=== PATIENT | female | born 1965 | race Caucasian/White ===

== ENCOUNTER → 2017-06-19 11:57 | Outpatient (CLI) | payer MEDICARE, SELFPAY ==
[2017-06-19 12:52] LABS: AST(SGOT) 28 U/L (15-37); Alanine Aminotransfer ALT/SGPT 44 U/L (13-56); Albumin, Serum 3.6 g/dL (3.2-5.0); Alkaline Phosphatase 136 U/L (45-117); Anion Gap 5 (5-15); BUN 14 mg/dL (7-18); BUN/Creat Ratio 12.5 RATIO (10-20); Calcium,Total 9.7 mg/dL (8.5-10.1); Chloride 107 mmol/L (98-107); Creatinine, Serum 1.12 mg/dL (0.55-1.02); EST Glomerular Filtration Rate 54 mL/min (>60); Est Glom Filt Rate - Afr Amer 65 mL/min (>60); Globulin 3.5 g/dL (2.2-4.2); Glucose 143 mg/dL (74-106); Potassium 3.4 mmol/L (3.5-5.1); Protein, Total 7.1 g/dL (6.4-8.2); Sodium Level 140 mmol/L (136-145); Thyroid Stim Hormone (TSH) 1.28 uIU/mL (0.358-3.74)
[2017-06-20 10:37] LABS: Vitamin D,25 Hydroxy 43.5 ng/mL (19.95-100.01)
== END ==
PROVIDERS: Family Provider Family Medicine; PCP Family Medicine; Visit Provider Family Medicine
DX: E03.9 Hypothyroidism, unspecified (principal); E55.9 Vitamin D deficiency, unspecified; F31.62 Bipolar disorder, current episode mixed, moderate
CPT/HCPCS: 80053; 82306; 84443

== ENCOUNTER 2017-07-09 09:00 | Outpatient (RCR) | payer MEDICARE, SELFPAY ==
--- NOTE | 2017-07-09 12:06 | BH.COMM ---
Communication Note - Communication with Client Communication Note: Therapist followed up with client on her first day and to let client know this therapist will be client's individual counselor. Therapist also provided client with CBT thought logs and scheduled an individual session for this week.
--- NOTE | 2017-07-09 12:08 | BH.SGPN ---
Service Group Progress Note - Session Psychotherapy Session #1 Date Open:: 07/09/17 Time Started:: 09:04 Time Stopped:: 10:20 Targeted Problem #:: 1 Type of Group:: Process - 8 participants Goal of Group:: The goal of today's group was to check-in with client's mood, stressors, and positives, review homework and introduce topic for the day. Eye Contact:: Good Motor Activity:: Appropriate Appearance:: Neat, Casual Speech:: Appropriate Mood:: Anxious, Depressed Affect:: Congruent Thoughts:: Linear, Logical, No evidence of hallucinations/delusions noted Staff Interventions:: Therapist used open-ended questions to elicit information about client's current stressors and mood state. Therapist was supportive by using active listening and reflection.
--- NOTE | 2017-07-09 14:04 | BH.SGPN ---
Service Group Progress Note - Session Psychotherapy Session #2 Date Open:: 07/09/17 Time Started:: 10:30 Time Stopped:: 11:20 Targeted Problem #:: 1 Type of Group:: Illness Management Goal of Group:: To increase understanding how positive and negative forces in life can impact balance in life. Eye Contact:: Good Motor Activity:: Appropriate Appearance:: Casual Speech:: Appropriate Mood:: Anxious, Depressed Affect:: Congruent Thoughts:: Linear, Logical, No evidence of hallucinations/delusions noted Staff Interventions:: Therapist facilitated group discussion about the various forces of life and helped clients connect the impact they have on balance in life. Therapist led group in an experiential activity in which group members had to work together to balance an object and move it to a designated location. Therapist utilized the activity as a tool to process the challenges connected with balancing various forces. Psychotherapy Session #3 Date Open:: 07/09/17 Time Started:: 11:30 Time Stopped:: 12:20 Targeted Problem #:: 1 Type of Group:: Functional Skills Development Goal of Group:: To identify positive and negative forces in life and identify which forces are helping stability and which forces are contributing to instability. Eye Contact:: Good Motor Activity:: Appropriate Appearance:: Casual Speech:: Appropriate Mood:: Anxious, Depressed Affect:: Congruent Thoughts:: Linear, Logical, No evidence of hallucinations/delusions noted Staff Interventions:: Therapist provided group with an example of a scenario of a person and the individual???s positive and negative forces. Therapist provided each group member with a worksheet in which they were to identify five positive and five negative forces in their life. Therapist processed the activity with the group, helping others connect the impact certain forces have on their life balance.
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
--- NOTE | 2017-07-10 14:39 | BH.DR.ITP ---
Initial Treatment Plan - Patient Information Visit Information: ADMISSION DATE: EXPECTED LOS: 4-6 weeks Diagnoses:: Bipolar disorder F 31.81 - Problems/Symptoms Problem #1:: Depression Symptom:: Sad mood, anhedonia, decreased energy, difficulty concentrating, suicidal ideation, biologic disruption of sleep and appetite Problem #2:: anxiety Symptom:: rumination, intrusive traumatic memories
--- NOTE | 2017-07-10 16:09 | BH.SGPN ---
Service Group Progress Note - Session Psychotherapy Session #2 Date Open:: 07/10/17 - participants Time Started:: 10:21 Time Stopped:: 11:12 Targeted Problem #:: 1 Type of Group:: Illness Management Goal of Group:: To increase understanding of what strengths are and identify individual strengths. Client Response/Progress/Benefit:: Client responded well to session, quiet, but participating when promoted. Client connected to the quote stating, you don't get better in a day, it takes time. Client reported strengths are good things about ourselves and they are important for self-esteem and overcoming hardships. Client identified her personal strengths as being courageous, good sense of humor, educated, motivated, and having good self-awareness. Client appeared to benefit from recognizing her personal strengths and how they impact her mental health. Limited progress due to client's recent admission. To continue IOP to promote mood stability and prevent decompensation. Eye Contact:: Good Motor Activity:: Appropriate Appearance:: Neat Speech:: Appropriate Mood:: Dysthymic Affect:: Constricted Thoughts:: Linear, No evidence of hallucinations/delusions noted Staff Interventions:: Therapist facilitated discussion about what are strengths and assisted group members in identifying examples of strengths. Therapist led an activity in which group members were given the opportunity to identify five personal strengths. Therapist assisted clients in connecting the importance of recognizing personal strengths.
--- NOTE | 2017-07-10 21:52 | BH.SGPN_ITS ---
Service Group Progress Note - Session Psychotherapy Session #1 Date Open:: 07/10/17 Time Started:: 09:06 Time Stopped:: 10:15 Targeted Problem #:: 1 Type of Group:: Process - 9 participants Goal of Group:: The goal of today's group was to check-in with client's mood, stressors, and positives, review homework. Client Response/Progress/Benefit:: Client responded well to session and did well to openly discuss thoughts, feelings, and opinions with the group. She discussed ongoing frustrations with her inability to sleep and explained feeling unable to fully function as a result. She went on to discuss feeling as though none of her providers truly understand the extent of her problem and don' t seem to know what to to. Client indicated I've tried everything, but nothing seems to help. She was receptive of fellow client suggestions and indicated that maybe altering her bedtime routine would be benefical. Client benefited from the structured and supportive group environment as well as having a safe setting to vent frustrations. Recommended continued IOP to further enhance internal coping skill repertoire as well as to prevent decompensation. Eye Contact:: Fair Motor Activity:: Restless Appearance:: Casual Speech:: Appropriate Mood:: Depressed Affect:: Full, Congruent Thoughts:: Linear, Logical, No evidence of hallucinations/delusions noted Staff Interventions:: Therapist used open-ended questions to elicit information about client's current stressors and mood state. Therapist reviewed homework assigned from previous groups. Therapist was supportive by using active listening and reflection.
--- NOTE | 2017-07-12 13:18 | BH.SGPN_ITS ---
Service Group Progress Note - Session Psychotherapy Session #2 Date Open:: 07/12/17 - 10 group members Time Started:: 10:25 Time Stopped:: 11:15 Targeted Problem #:: 1 Type of Group:: Illness Management Goal of Group:: To increase understanding of importance of boundaries and the different ways of setting boundaries (permeable, rigid, and flexible). Client Response/Progress/Benefit:: Client responded well to session, engaging in discussion. Client appeared to connect with quote sharing, ?boundaries are important, but I don?t set them.? Client shared she often avoids setting boundaries because she does not want to disappoint people. Client identified her boundary type as porous stating, ?I let a lot in.? Client shared being porous increases anxiety as client has a hard time saying no, then takes on too many tasks at once. Client appeared to benefit from increasing awareness of the different boundary types and they impact mental health. Eye Contact:: Fair Motor Activity:: Appropriate Appearance:: Casual Speech:: Appropriate Mood:: Dysthymic Affect:: Flat Thoughts:: Linear, No evidence of hallucinations/delusions noted Staff Interventions:: Therapist facilitated group discussion about defining boundaries. Therapist led discussion about importance of boundaries, assisting group members with identifying the impact of healthy and unhealthy boundaries. Therapist educated the group about the three different ways of setting boundaries and led discussion about each one. Therapist assisted clients with identifying the costs and benefits to the three different styles of boundary setting and how each style can impact mental health as well as relationships. Psychotherapy Session #3 Date Open:: 07/12/17 - 9 group members Time Started:: 11:25 Time Stopped:: 12:20 Targeted Problem #:: 1 Type of Group:: Functional Skills Development Goal of Group:: Increase awareness of current boundary style, identifying impact current way of setting boundaries has on mental health as well as relationships. Client Response/Progress/Benefit:: Client responded well to session, active participant. Client created a visual representation of her boundaries, sharing ? I put up this front like I will say no and keep people out, but it?s not true.? Client reported being porous leads to rumination and dwelling. Client shared she does set boundaries with ?rigid people? people who do not share the same beliefs as client. Client stated she can improve her boundaries by focusing more on her mental health needs. Client to continue IOP to prevent decompensation. Eye Contact:: Fair Motor Activity:: Appropriate Appearance:: Casual Speech:: Appropriate Mood:: Dysthymic Affect:: Flat Thoughts:: Linear, No evidence of hallucinations/delusions noted Staff Interventions:: Therapist provided the group member with a wide array of supplies, asking each group member to create a castle that would represent the boundaries they currently have in place. The expressive activity was used as a tool to help increase client?s self-awareness of their boundaries. Therapist processed each group member?s castle, inquiring what style the group member currently uses most frequently and how current boundary style impacts his/her mental health and relationships. Therapist provided support by using reflective listening and giving feedback.
--- NOTE | 2017-07-12 13:18 | BH.MDN ---
Multi-Disciplinary Note - Note 30-min Individual Time Started:: 09:21 Date: 07/12/17 Purpose of session/treatment goals addressed:: The purpose of this session was to explore client's current stressors, symptoms, and overall functioning. Another goal was to build rapport and establish treatment goals. Eye Contact:: Good Motor Activity:: Appropriate Appearance:: Neat Speech:: Appropriate, Other - monotone Mood:: Dysthymic Affect:: Flat - became tearful at times Thoughts:: Linear, No evidence of hallucinations/delusions noted Staff Interventions:: Therapist used active listening and open-ended questions to explore client's current stressors, symptoms, and warning signs. Therapist helped client identify individualized treatment goals and provided emotional support. Therapist assisted client in processing emotions and used strengths perspective to empower client. Therapist and client explored coping skills that have worked in the past and developed homework for client. Client Response:: Client responded well to session, open to meeting with therapist. Client reported I knew I needed help because I was having suicidal thoughts again. Client shared other warning signs she recognized were smoking, poor concentration, and I get depressed every winter. Client reported her daughter recently got in a car accident which triggered client as well it was the straw that broke the camel's back. Client shared she would like to work on learning to cope with her daughters leaving home and learning to make a life for myself. Client stated she also wants to get back into challenging negative thoughts as it was helpful in the past. Client expressed she knows what is helpful, but her depressive symptoms are impacting client's implementation of healthy skills. Client reflected when she gets depressed I don't give myself any credit and client often uses negative self-talk. Client agreed to start writing in a positivity journal every day so client can track the things she deserves credit for and promote positive self-talk. Risks/Concerns:: Client reports passive thoughts of such as it would be better if I wasn't here. Client denies suicidal ideation, plan, and intent of as 07/12/17. Client identifies her daughters as a reason to live. Progress Toward Goals/Plan:: Client progress limited as it is her first week in the program. Client has been in IOP before and shared I've always made progress here which gives client hope. Client appears to have high insight to triggers, warning signs, and healthy versus unhealthy coping skills. Client to continue IOP to prevent decompensation and promote mood stability. Client to work on her credit journal and thought challenge for homework. Time Stopped:: 09:55
--- NOTE | 2017-07-12 16:19 | BH.MTP ---
Master Treatment Plan - Patient Information Program Physician:: Tati Priest Primary Therapist:: Any Damico - Psychiatric Diagnoses Psychiatric Diagnoses:: Bipolar disorder ; PTSD; Generalized anxiety disorder; Nicotine use disorder. Diagnosis Code(s):: F 31.81 - Estimated LOS Estimated LOS (in weeks):: 6 Problem/Goal #1 - Problem/Goal #1 Stated Goal:: Client will increase mood stability, decrease depressive symptoms, and suicidal ideation due to Bipolar Disorder through Intensive Outpatient Program. Description of Barriers: Client has insight to healthy coping skills that have managed her depression in the past, but due to hopelessness and negative thinking client has not been utilizing those skills. Client shared she experiences depression every winter which results in negative thinking, isolation, and rumination. Client reports having a hard time accepting her living situation which exacerbates depressive symptoms and could be a barrier to treatment. Additionally, client shared she is struggling with finding her purpose as her daughters will both soon be gone from home. Functional Impact: Client identifies a pattern of seasonal depression and mixed mood symptoms associated with winter weather and usually worse in June. Client reported Im tired of always feeling this way every year. Client reported belief her symptoms were further exacerbated this year as 2 weeks ago when her daughter was in an MVA. Client endorses a depressed mood with isolative behavior decreased energy, rumination, anhedonia, and difficulty concentrating. Client reported having suicidal thoughts two weeks ago which was when I knew it was getting bad. Client shared her symptoms are interfering with her ability to function at her baseline and enjoy daily life. Goal Relevant Strengths/Supports: Client is intelligent, resilient, and reports willingness to engage in treatment. 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 Client reports having good rapport with her outpatient therapist and identifies numerous friends who provide social support as well. Client identifies returning to [facility] as a strength as client was aware of warning signs for depression and was willing to ask for help. Client has successfully managed her depressive symptoms in the past and reports hope she can do it again. - Objectives Objective #1 Stated Objective: Client will identify and replace 2-3 negative thinking patterns that mediate feelings of hopelessness and helplessness. Interventions: Through groups and individual therapy, client will be provided with education on cognitive distortions, negative maintenance cycles, core beliefs, and identifying and combating negative self-talk. Therapist will help client explore connection between thoughts, feelings, and actions through use of CBT and DBT strategies. Discharge Criteria: Client will be able to identify 2-3 negative thinking patterns and be able to effectively challenge, reframe, and cope with those negative thoughts. Target Date: 08/20/17 Review Date: 08/08/17 Status: open Objective #2 Stated Objective: Client will increase self-confidence and improve self-worth by journaling 3-5 positives a day and identifying at least 2 activities or support to improve mood. Interventions: Therapist will help client identify personal strengths, interests, and explore ways to improve her self-worth. Therapist will provide psychoeducation to help client learn more about depression, bipolar, and help client externalize her symptoms. Therapist will help client discover meaningful activities and connect with positive supports to improve mood. Discharge Criteria: Client will have accomplished this treatment goal when can report increased self-confidence through journaling at least 3 positives a day and identifying at least 2 new positive activities or supports. Target Date: 08/20/17 Review Date: 08/08/17 Status: open Problem/Goal #2 - Problem/Goal #2 Stated Goal:: Client will stabilize anxiety level while increasing ability to function and decreasing ruminative thoughts on a daily basis through Intensive Outpatient Program. Description of Barriers: Client has insight to healthy coping skills that have managed her depression in the past, but due to hopelessness and negative thinking client has not been utilizing those skills. Client shared she experiences depression every winter which results in negative thinking, isolation, and rumination. Client reports having a hard time accepting her living situation which exacerbates depressive symptoms and could be a barrier to treatment. Additionally, client shared she is struggling with finding her purpose as her daughters will both soon be gone from home. Functional Impact: Client identifies a pattern of seasonal depression and mixed mood symptoms associated with winter weather and usually worse in June. Client reported Im tired of always feeling this way every year. Client reported belief her symptoms were further exacerbated this year as 2 weeks ago when her daughter was in an MVA. Client endorses a depressed mood with isolative behavior decreased energy, rumination, anhedonia, and difficulty concentrating. Client reported having suicidal thoughts two weeks ago which was when I knew it was getting bad. Client shared her symptoms are interfering with her ability to function at her baseline and enjoy daily life. Goal Relevant Strengths/Supports: Client is intelligent, resilient, and reports willingness to engage in treatment. 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 Client reports having good rapport with her outpatient therapist and identifies numerous friends who provide social support as well. Client identifies returning to [facility] as a strength as client was aware of warning signs for depression and was willing to ask for help. Client has successfully managed her depressive symptoms in the past and reports hope she can do it again. - Objectives Objective #1 Stated Objective: Client will identify 2-3 anxiety triggers and distortions and 2 coping skills to use when feeling anxious. Interventions: Therapist will assist client in exploring what triggers anxiety and teach client coping strategies to effectively manage anxiety symptoms. Therapist will educate client on the different types of cognitive distortions and how they impact rumination. Discharge Criteria: Client will have met this goal when can identify at least 2 triggers to anxiety and verbalize two healthy ways to cope with feelings of anxiety. Target Date: 08/20/17 Review Date: 08/08/17 Status: open
--- NOTE | 2017-07-13 11:23 | BH.NA_ITS ---
Physical Data - Vital Signs Pulse Rate: 86 Respiratory Rate: 14 Blood Pressure: 135/90 - Height/Weight Height: 1.65 m Weight:: 78.018 kg Weight in Pounds: 172.0 lbs Current Medication Compliance - Medication Compliance Do you take your medication as prescribed?: Yes Do you need assistance with taking medication?: No Have you had side effects from medication?: Yes Nutritional History - Appetite Nutritional Instructions:: If client shows signs of a swallowing problem, weight change of 10 pounds or more in the last month, or is on a diabetic diet, the physician will review and request a dietitian consult, as appropriate. All unintentional weight loss will be referred to the physician for decision on need for dietitian consult. Describe your appetite:: Good Have you noticed a change in your eating habits lately?: No Additional nutritional information:: 10# wt loss. 3-4 caffienated beverages daily. Functional Assessment - Sleep Pattern Describe any problems with sleeping: Difficulty staying asleep - Activities Motor Activity:: Functional Sensory/Communication Assess - Vision Problems Do you have any vision problems?: None - Hearing Problems Do you have any hearing problems?: Adequate - Communication Problems Do you have difficulty understanding what people are saying?: No Do you have trouble putting your thoughts into words or expressing what you want to say?: No Do people ever have trouble understanding what you say?: No What is your primary language?: Italian Learning Assessment - Learning Barriers Learning Barriers:: Ready to learn Medical Problems/History - Cardiac Conditions Cardiovascular: Hypertension - Metabolic Conditions Metabolic: Hypothyroidism - Pain Assessment Do you have acute or chronic pain?: No - Female Reproductive Do you think you may be ?: No Number of pregnancies:: 2 Number of children:: 2 Substance Abuse - Substance Abuse Please describe substance abuse in the last 30 days:: Client notes that she has been smoking cigarettes intermittent and has been using nicotine gum to aide with cessation. Denies ETOH and illicit substance use. Mental Status Summary - Mental Status Significant Findings/Observations on Appearance and Mood:: Client is A&Ox4, cooperative with interview, and makes good eye contact. Speech is clear and of regular rate and volume. Moderate depression and anhedonia. Mood congruent affect. Logical associations and normal process. Average knowledge. Impair judgement. No symptoms of delusions. Denies hallucinations or HI. Intermittent SI. Suicide Assessment - Suicidal Ideation Suicidal Intentional Rating Scale (SIRS): Current suicidal thoughts/No plan/ Contracts for safety Physician Notification: If Active suicidal thoughts/Will not contract for safety is checked, contact physician and document in the Physician Notification section below. Assault History/Potential - History of Assault Do you have a history of assaulting someone?: No Physician Notification: If yes, notify physician and document notification date and time below. Past Psychiatric History - MH Treatment Hx Past Psychiatric Medications:: Tegretol, Depakote Describe (age, circumstance, etc) any past hospitalizations: 6 times Fall Risk Assessment - Age Age: Less than 60 - Mental Status Mental Status: Willing & able to ask for assistance when needed - Physical Status Physical Status: No problems - Impairments Impairments: None - Elimination Elimination: Continent AND independent - Gait or Balance Gait or Balance: Walks independently - Hx of Falls History of falls in the past 6 months: No known history - Medications/Substances Psychotropics:: Antidepressants, Mood stabilizers Medications/substances used within the past 24 hours or ordered to administer: 1 -2 of the medications/substances listed above - Total Score Total Points:: 1 RN Summary of Impressions - Impressions Recommendations: Include psychiatric and medical issues, treatment planning recommendations, and discharge planning needs. Impressions: Psychiatric Issues: PTSD, bipolar 2, anxiety Impression: General Medical Conditions: HTN, hypothyroidism - Level of Care How do the client's current symptoms and functional deficits support need for this level of care?: Client notes a deterioration of her condition for the past few months. She notes that her daughter was in an MVA 2 weeks to presenting, and that has caused her to have more severe anxiety. The client notes difficulty falling asleep at night associated with rumination, increased SI, and isolative behaviors. IOP will promote gains and prevent further decompensation of mental health.
--- NOTE | 2017-07-13 14:06 | BH.SGPN ---
Service Group Progress Note - Session Psychotherapy Session #2 Date Open:: 07/13/17 Time Started:: 10:15 Time Stopped:: 11:10 Targeted Problem #:: 1 Type of Group:: Illness Management Goal of Group:: The goal of group was to increase understanding of goals and goal setting and practice a method of goal setting. Eye Contact:: Good Motor Activity:: Appropriate Appearance:: Casual Speech:: Appropriate Mood:: Depressed Affect:: Congruent Thoughts:: Linear, Logical, No evidence of hallucinations/delusions noted Staff Interventions:: Therapist facilitated group discussion about goals and goal setting. Therapist taught group the acronym SMART (Specific, Measurable, Achievable, Realistic, Timely) as a tool to help with goal setting. Therapist led the group in an activity to be used as a method of practicing goal setting. Therapist guided the group through the SMART acronym as group was participating in activity. Therapist assisted group members with connecting the importance of making small, realistic goals. Psychotherapy Session #3 Date Open:: 07/13/17 Time Started:: 11:16 Time Stopped:: 12:06 Targeted Problem #:: 1 Type of Group:: Functional Skills Development Goal of Group:: The goal of group was to identify a goal for the weekend, explore the potential barriers to achieving that set goal, and identify strategies to overcome barriers. Eye Contact:: Good Motor Activity:: Appropriate Appearance:: Casual Speech:: Appropriate Mood:: Depressed Affect:: Congruent Thoughts:: Linear, Logical, No evidence of hallucinations/delusions noted Staff Interventions:: Therapist facilitated group activity in which group members identified a goal to work on over the next week. Therapist asked group members to identify barriers to achieving identified goal and strategies to help them achieve their goal. Therapist led group in processing their goal maps, assisting clients with establishing SMART goals. Therapist provided support by using reflective listening.
--- NOTE | 2017-07-16 17:25 | BH.SGPN_ITS ---
Service Group Progress Note - Session Psychotherapy Session #1 Date Open:: 07/16/17 Time Started:: 09:05 Time Stopped:: 10:20 Targeted Problem #:: 1 Type of Group:: Process Goal of Group:: The goal of today's group was to check-in with client's mood, stressors, and positives, review homework and introduce topic for the day. Client Response/Progress/Benefit:: Client reported her weekend was a mix of good and bad. 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 Another positive when she went for a walk yesterday and really enjoys being outside getting fresh air and sun. Client reported the really bad situation was on [place] Day she went out with some friends to a bar and ended up drinking alcohol in excess which led to her later in the night smoking marijuana. Client shared she is feeling really disappointed in herself because she tends to not drink alcohol or do drugs because she knows it can have better interaction with medications as well as could impact her mental health. Through discussion client was able to recognize that she is beating herself up over having made a mistake which is only making her more depressed. Client able to recognize that it is important to learn from the situation so she does not put herself in something like that again but it is not helpful to continue to ruminate over her choice that she cannot take back. Client seemed to benefit from sharing her thoughts and feelings about the weekend as well as receiving support and having her thought processes being challenged. Eye Contact:: Fair Motor Activity:: Restless Appearance:: Neat Speech:: Appropriate Mood:: Depressed Affect:: Flat Thoughts:: Linear, Logical, No evidence of hallucinations/delusions noted Staff Interventions:: Therapist used open-ended questions to elicit information about client's current stressors and mood state. Therapist was supportive by using active listening and reflection.
--- NOTE | 2017-07-17 14:45 | BH.MDN ---
Multi-Disciplinary Note - Note 45-min Individual Time Started:: 12:40 Date: 07/17/17 Purpose of session/treatment goals addressed:: The purpose of this session was to address client's current stressors, symptoms, and use of coping skills. Another goal was to identify cognitive distortions, mistaken beliefs, and discuss identity. Eye Contact:: Avoidant Motor Activity:: Appropriate Appearance:: Neat Speech:: Appropriate Mood:: Dysthymic Affect:: Flat - tearful throughout Thoughts:: Racing, No evidence of hallucinations/delusions noted Staff Interventions:: Therapist used active listening and open-ended questions to explore client's current stressors, symptoms, and use of coping skills. Therapist used CBT to inform client on negative maintenance cycles, the depressive triad, and how thoughts, feelings, and behaviors are all connected. Therapist gently challenged client on not implementing thought challenging techniques and helped client identify barriers. Therapist normalized and externalized depression to help client reframe her identity and focus on strengths. Therapist gave client a three-day thought challenging goal to promote use of a skill that has helped client in the past. Client Response:: Client responded well to session, open to meeting with therapist. Client shared her successes and challenges from over the weekend and reported she has been keeping up with her self-confidence journal. Client shared her current outlook has been negative and she has been experiencing a lot of black and white thinking. Client stated, I just feel like it's never going to get better and I'm doing everything I can. 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 However, with therapist elicitation, client reported she has not been challenging cognitive distortions which may be hindering the effectiveness of client's other coping skills. Client was receptive to externalizing depression and exploring how she is more than depression. Client listed positive characteristics that form her identity and listed mistaken beliefs, negative thoughts, and barriers that make come with depression. Client stated this helped client understand she is more than depression even though she may not currently feel that way. Client and therapist discussed the depression triad and how negative self-talk impacts core beliefs, emotions, and one's outlook. Client reported willingness to try the three-day thought challenging activity as reframing cognitive distortions helped client in the past. Risks/Concerns:: Client denies suicidal ideation, plan, and intent as of 07/17/17. Client reports knowing group has helped her before gives her hope. Progress Toward Goals/Plan:: Client's progress is variable as it is only her second week in the program. However, client is showing progress with utilizing opposite action strategies to reduce isolation, but reports struggling with challenging distorted thoughts that exacerbate depressive symptoms. Client to continue IOP to promote mood stability and increase coping skill consistency. Time Stopped:: 13:25
--- NOTE | 2017-07-17 14:54 | BH.SGPN ---
Service Group Progress Note - Session Psychotherapy Session #1 Date Open:: 07/17/17 Time Started:: 09:05 Time Stopped:: 10:00 Type of Group:: Process - 8 group members Goal of Group:: The goal of today's group was to check-in with client's mood, stressors, and positives, review homework and introduce topic for the day. Client Response/Progress/Benefit:: Client was an active participant in group discussion. Emotion for today is concerned. Shared with the group that she did not sleep well last night and woke up 6 times. She does not believe that poor sleep was related to anxiety or MH symptoms and feels that perhaps she may need a sleep study. Group encouraged her to ask her PCP and members shared thier experiences with a sleep study to decrease her anxiety. Reports that her day yesterday went well. She reports that she did not isolate and was able to perform all her tasks and responsibilities at work w/o struggling. Progress noted as she reports decreased MH symptoms and increased functioning. Continued treatment to stabilze mood and prevent decompensation. Eye Contact:: Fair Motor Activity:: Appropriate Appearance:: Casual Speech:: Appropriate Mood:: Anxious, Depressed Affect:: Congruent Thoughts:: Linear, Logical, No evidence of hallucinations/delusions noted Staff Interventions:: Therapist used open-ended questions to elicit information about client's current stressors and mood state. Therapist was supportive by using active listening and reflection.
--- NOTE | 2017-07-17 16:16 | BH.SGPN ---
Service Group Progress Note - Session Psychotherapy Session #2 Date Open:: 07/17/17 Time Started:: 10:15 Time Stopped:: 11:08 Targeted Problem #:: 1 Type of Group:: Illness Management Goal of Group:: To increase understanding of what conflict is and increase awareness of how group members manage conflict. Client Response/Progress/Benefit:: Pt passive participant, contributed if therapist elicited a comment. Pt identified she tends to be avoidant of conflict because wants to make others happy. Recognized the downfall to avoiding conflict to be getting taken advantage of, which impacts self esteem. Pt seemed to benefit from increasing awareness of the different styles of conflict resolution as well as gaining insight into impact of how she deals with conflict. Eye Contact:: Fair Motor Activity:: Appropriate Appearance:: Neat Speech:: Appropriate Mood:: Depressed Affect:: Flat Thoughts:: Linear, Logical, No evidence of hallucinations/delusions noted Staff Interventions:: Therapist facilitated discussion about conflict and conflict resolution. Therapist led group in an activity in which group members had to identify their initial response to conflict and how their response changes based on different situations. Therapist assisted clients with connecting the impact current conflict style has on their mental health. Psychotherapy Session #3 Date Open:: 07/17/17 Time Started:: 11:18 Time Stopped:: 12:15 Targeted Problem #:: 1 Type of Group:: Functional Skills Development Goal of Group:: To identify what contributes positively and negatively to conflict and appropriate ways to manage conflict with others. Client Response/Progress/Benefit:: Client demonstrated increased engagement during challenge activity as evidneced by her communicating her thoughts and ideas more openly. Pt reported she focused on being more collaborative in her conflict resolution style by verbalizing her thoughts and listening to others. Pt shared she plans to use today's topic in her daily life by trying to be less of a people pleaser and setting healthy boundaries. Eye Contact:: Fair Motor Activity:: Appropriate Appearance:: Neat Speech:: Appropriate Mood:: Depressed Affect:: Flat Thoughts:: Linear, Logical, No evidence of hallucinations/delusions noted Staff Interventions:: Therapist facilitated group activity in which group members were provided with materials and had to eliminate certain items with consensus from group. Therapist processed activity, helping clients connect throughout activity strategies each person used to manage conflict. Therapist led discussion about what contributes to conflict in a positive or negative manner. Therapist facilitated discussion about conflict resolution strategies and provided group member with a handout about effective ways to manage conflict.
--- NOTE | 2017-07-17 16:20 | BH.MTP_ITS ---
Master Treatment Plan - Patient Information Program Physician:: Tati Priest Primary Therapist:: Any Damico - Psychiatric Diagnoses Psychiatric Diagnoses:: Bipolar disorder ; PTSD; Generalized anxiety disorder; Nicotine use disorder. Diagnosis Code(s):: F 31.81 - Estimated LOS Estimated LOS (in weeks):: 6 Problem/Goal #1 - Problem/Goal #1 Stated Goal:: Client will increase mood stability, decrease depressive symptoms , and suicidal ideation due to Bipolar Disorder through Intensive Outpatient Program. Description of Barriers: Client has insight to healthy coping skills that have managed her depression in the past, but due to hopelessness and negative thinking client has not been utilizing those skills. Client shared she experiences depression every winter which results in negative thinking, isolation, and rumination. Client reports having a hard time accepting her living situation which exacerbates depressive symptoms and could be a barrier to treatment. Additionally, client shared she is struggling with finding her purpose as her daughters will both soon be gone from home. Functional Impact: Client identifies a pattern of seasonal depression and mixed mood symptoms associated with winter weather and usually worse in June. Client reported ?I?m tired of always feeling this way every year.? Client reported belief her symptoms were further exacerbated this year as 2 weeks ago when her daughter was in an MVA. Client endorses a depressed mood with isolative behavior decreased energy, rumination, anhedonia, and difficulty concentrating. Client reported having suicidal thoughts two weeks ago ?which was when I knew it was getting bad.? Client shared her symptoms are interfering with her ability to function at her baseline and enjoy daily life. Goal Relevant Strengths/Supports: Client is intelligent, resilient, and reports willingness to engage in treatment. 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 Client reports having good rapport with her outpatient therapist and identifies numerous friends who provide social support as well. Client identifies returning to [facility] as a strength as client was aware of warning signs for depression and was willing to ask for help. Client has successfully managed her depressive symptoms in the past and reports hope she can do it again. - Objectives Objective #1 Stated Objective: Client will identify and replace 2-3 negative thinking patterns that mediate feelings of hopelessness and helplessness. Interventions: Through groups and individual therapy, client will be provided with education on cognitive distortions, negative maintenance cycles, core beliefs, and identifying and combating negative self-talk. Therapist will help client explore connection between thoughts, feelings, and actions through use of CBT and DBT strategies. Discharge Criteria: Client will be able to identify 2-3 negative thinking patterns and be able to effectively challenge, reframe, and cope with those negative thoughts. Target Date: 08/20/17 Review Date: 08/08/17 Status: open Objective #2 Stated Objective: Client will increase self-confidence and improve self-worth by journaling 3-5 positives a day and identifying at least 2 activities or support to improve mood. Interventions: Therapist will help client identify personal strengths, interests , and explore ways to improve her self-worth. Therapist will provide psychoeducation to help client learn more about depression, bipolar, and help client externalize her symptoms. Therapist will help client discover meaningful activities and connect with positive supports to improve mood. Discharge Criteria: Client will have accomplished this treatment goal when can report increased self-confidence through journaling at least 3 positives a day and identifying at least 2 new positive activities or supports. Target Date: 08/20/17 Review Date: 08/08/17 Status: open Problem/Goal #2 - Problem/Goal #2 Stated Goal:: Client will stabilize anxiety level while increasing ability to function and decreasing ruminative thoughts on a daily basis through Intensive Outpatient Program. Description of Barriers: Client has insight to healthy coping skills that have managed her depression in the past, but due to hopelessness and negative thinking client has not been utilizing those skills. Client shared she experiences depression every winter which results in negative thinking, isolation, and rumination. Client reports having a hard time accepting her living situation which exacerbates depressive symptoms and could be a barrier to treatment. Additionally, client shared she is struggling with finding her purpose as her daughters will both soon be gone from home. Functional Impact: Client identifies a pattern of seasonal depression and mixed mood symptoms associated with winter weather and usually worse in June. Client reported ?I?m tired of always feeling this way every year.? Client reported belief her symptoms were further exacerbated this year as 2 weeks ago when her daughter was in an MVA. Client endorses a depressed mood with isolative behavior decreased energy, rumination, anhedonia, and difficulty concentrating. Client reported having suicidal thoughts two weeks ago ?which was when I knew it was getting bad.? Client shared her symptoms are interfering with her ability to function at her baseline and enjoy daily life. Goal Relevant Strengths/Supports: Client is intelligent, resilient, and reports willingness to engage in treatment. 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 Client reports having good rapport with her outpatient therapist and identifies numerous friends who provide social support as well. Client identifies returning to [facility] as a strength as client was aware of warning signs for depression and was willing to ask for help. Client has successfully managed her depressive symptoms in the past and reports hope she can do it again. - Objectives Objective #1 Stated Objective: Client will identify 2-3 anxiety triggers and distortions and 2 coping skills to use when feeling anxious. Interventions: Therapist will assist client in exploring what triggers anxiety and teach client coping strategies to effectively manage anxiety symptoms. Therapist will educate client on the different types of cognitive distortions and how they impact rumination. Discharge Criteria: Client will have met this goal when can identify at least 2 triggers to anxiety and verbalize two healthy ways to cope with feelings of anxiety. Target Date: 08/20/17 Review Date: 08/08/17 Status: open
--- NOTE | 2017-07-19 14:30 | BH.SGPN ---
Service Group Progress Note - Session Psychotherapy Session #2 Date Open:: 07/19/17 6 group members Time Started:: 10:12 Time Stopped:: 11:06 Type of Group:: Illness Management Goal of Group:: To increase understanding of mindfulness and explore the benefits of mindfulness and what thoughts are prohibiting group members to stay in the present. Client Response/Progress/Benefit:: Client responded well to session, engaged in discussion. Client connected with the quote sharing, not worrying is easier said than done, but you have to try. Client helped the group identify the benefits of mindfulness including better health, sleep, and mental wellness. Client reported I used to practice a lot of mindfulness, but I fell off with it. Client reported her negative thinking and increased depressive symptoms create a barrier to mindfulness. Client shared she is often not aware she is thinking negatively until I feel miserable. Client participated in the mindfulness activities, sharing she liked guided imagery and mindful music. Client appeared to benefit from practicing in the moment mindfulness skills and identifying personal barriers to using mindfulness. Client progressing as shown by her increased insight to barriers, but continues to struggle with challenging negative thoughts. Eye Contact:: Fair Motor Activity:: Appropriate Appearance:: Casual Speech:: Soft Mood:: Dysthymic Affect:: Constricted Thoughts:: Linear, No evidence of hallucinations/delusions noted Staff Interventions:: Therapist provided each group member with a worksheet to complete that asked questions about possible stressors and overwhelming thoughts that take up their attention and assist client in redirecting thoughts by completing an activity. Therapist led the processing of the worksheet and activity, helping clients connect how negative thoughts can impact them. Therapist provided support by using active listening and providing feedback. Psychotherapy Session #3 Date Open:: 07/19/17 - 6 group members Time Started:: 11:25 Time Stopped:: 12:20 Targeted Problem #:: 1 Type of Group:: Functional Skills Development Goal of Group:: To identify the impact that negative thinking patterns has had on group members lives and how using mindfulness techniques and coping strategies can assist group members in managing overwhelming thoughts and feelings. Client Response/Progress/Benefit:: Client responded well to session, active participant. Client shared when she is not mindful her thoughts take over and client experiences increased depression. Client participated in discussion of emotion mind, reason mind, and hutchinson mind and how being more aware of ones thoughts can positively impact mental health. Client created a visual reminder to promote use of mindfulness skills including: being nature, figure-eight breathing, meditation, and listening to music. Client appeared to benefit from increasing her repertoire of mindfulness skills as well as by setting a weekly goal. Client to continue IOP to promote mood stability and increase implementation of healthy coping skills. Eye Contact:: Fair Motor Activity:: Appropriate Appearance:: Casual Speech:: Soft Mood:: Dysthymic Affect:: Flat Thoughts:: Linear, No evidence of hallucinations/delusions noted Staff Interventions:: Therapist facilitated discussion about mindfulness and the benefits mindfulness can have. Therapist led group in an experiential activity in which clients would practice techniques such as breathing mindfully, and body scans. Therapist led the processing of the activity and assisted clients in connecting how when faced with overwhelming thoughts or negative self-talk can be disruptive to daily functioning.
--- NOTE | 2017-07-20 14:00 | BH.SGPN ---
Service Group Progress Note - Session Psychotherapy Session #1 Date Open:: 07/20/17 Time Started:: 09:10 Time Stopped:: 10:00 Targeted Problem #:: 1 Type of Group:: Process - 7 group members Goal of Group:: The goal of today's group was to check-in with client's mood, stressors, and positives, review homework and introduce topic for the day. Client Response/Progress/Benefit:: Client reported the other night she got 12 hours of sleep which is something she really needed and reported it was not an attempt to avoid but was trying catch up on sleep that she has not been getting. Client reported yesterday she went to work which is a bit stressful because there are a lot more people than typical but was able to manage her emotions and get through it. Client shared she is a little disappointed that the only time she is able to get sleep as if she takes her Remeron but cannot take that all the time because it makes her extremely drowsy and sleeps for very long time. Client shared her last night she did not take the Remeron because she knew she had to be a group today and throughout the night she woke up at least 4 times. Client seemed benefit from sharing thoughts and feelings as well as support from peers. Eye Contact:: Good Motor Activity:: Appropriate Appearance:: Neat Speech:: Appropriate Mood:: Euthymic Affect:: Congruent Thoughts:: Linear, Logical, No evidence of hallucinations/delusions noted Staff Interventions:: Therapist used open-ended questions to elicit information about client's current stressors and mood state. Therapist was supportive by using active listening and reflection.
--- NOTE | 2017-07-20 14:31 | BH.SGPN_ITS ---
Service Group Progress Note - Session Psychotherapy Session #2 Date Open:: 07/19/17 group members Time Started:: 10:12 Time Stopped:: 11:06 Type of Group:: Illness Management Goal of Group:: To increase understanding of mindfulness and explore the benefits of mindfulness and what thoughts are prohibiting group members to stay in the present. Client Response/Progress/Benefit:: Client responded well to session, engaged in discussion. Client connected with the quote sharing, ?not worrying is easier said than done, but you have to try.? Client helped the group identify the benefits of mindfulness including better health, sleep, and mental wellness. Client reported ?I used to practice a lot of mindfulness, but I fell off with it.? Client reported her negative thinking and increased depressive symptoms create a barrier to mindfulness. Client shared she is often not aware she is thinking negatively until ?I feel miserable.? Client participated in the mindfulness activities, sharing she liked guided imagery and mindful music. Client appeared to benefit from practicing in the moment mindfulness skills and identifying personal barriers to using mindfulness. Client progressing as shown by her increased insight to barriers, but continues to struggle with challenging negative thoughts. Eye Contact:: Fair Motor Activity:: Appropriate Appearance:: Casual Speech:: Soft Mood:: Dysthymic Affect:: Constricted Thoughts:: Linear, No evidence of hallucinations/delusions noted Staff Interventions:: Therapist provided each group member with a worksheet to complete that asked questions about possible stressors and overwhelming thoughts that take up their attention and assist client in redirecting thoughts by completing an activity. Therapist led the processing of the worksheet and activity, helping client?s connect how negative thoughts can impact them. Therapist provided support by using active listening and providing feedback. Psychotherapy Session #3 Date Open:: 07/19/17 - 6 group members Time Started:: 11:25 Time Stopped:: 12:20 Targeted Problem #:: 1 Type of Group:: Functional Skills Development Goal of Group:: To identify the impact that negative thinking patterns has had on group member?s lives and how using mindfulness techniques and coping strategies can assist group members in managing overwhelming thoughts and feelings. Client Response/Progress/Benefit:: Client responded well to session, active participant. Client shared when she is not mindful her thoughts ?take over? and client experiences increased depression. Client participated in discussion of emotion mind, reason mind, and hutchinson mind and how being more aware of one?s thoughts can positively impact mental health. Client created a visual reminder to promote use of mindfulness skills including: being nature, figure-eight breathing, meditation, and listening to music. Client appeared to benefit from increasing her repertoire of mindfulness skills as well as by setting a weekly goal. Client to continue IOP to promote mood stability and increase implementation of healthy coping skills. Eye Contact:: Fair Motor Activity:: Appropriate Appearance:: Casual Speech:: Soft Mood:: Dysthymic Affect:: Flat Thoughts:: Linear, No evidence of hallucinations/delusions noted Staff Interventions:: Therapist facilitated discussion about mindfulness and the benefits mindfulness can have. Therapist led group in an experiential activity in which client?s would practice techniques such as breathing mindfully , and body scans. Therapist led the processing of the activity and assisted clients in connecting how when faced with overwhelming thoughts or negative self -talk can be disruptive to daily functioning.
--- NOTE | 2017-07-20 14:33 | BH.SGPN_ITS ---
Service Group Progress Note - Session Psychotherapy Session #2 Date Open:: 07/20/17 - 9 group members Time Started:: 10:25 Time Stopped:: 11:15 Targeted Problem #:: 1 Type of Group:: Illness Management Goal of Group:: To increase understanding of the impact viewing situations as impossible can have on our mental health. Client Response/Progress/Benefit:: Client responded well to session, adding to discussion occasionally. Client seemed to connect with the topic stating, ?when we think something is impossible it can become self-fulfilling.? Client stated viewing something as impossible can lead to hopelessness, avoidance, and depression. Client reported the ?not yet? mindset can be helpful as it promotes hope and solutions. Client participated in a group activity that at first seems impossible, but with teamwork can be accomplished. Client reported the activity helped client remember to use her supports and recognize life can be unpredictable, but unpredictable does not equal. Client appeared to benefit from gaining awareness of the negative implications of having an impossible mindset. Client to continue IOP to promote emotional regulation and prevent decompensation. Eye Contact:: Fair Motor Activity:: Appropriate Appearance:: Casual Speech:: Appropriate Mood:: Dysthymic Affect:: Constricted Thoughts:: Linear, No evidence of hallucinations/delusions noted Staff Interventions:: Therapist facilitated discussion about what it means to overcome what seems impossible. Therapist led group in an activity that would initially seem impossible to complete, but once group members looked at the problem in a different way they would be able to see alternative solutions. Therapist utilized the activity as a tool to discuss overcoming those situations that seem impossible to get through. Psychotherapy Session #3 Date Open:: 07/20/17 - group members Time Started:: 11:25 Time Stopped:: 12:15 Targeted Problem #:: 1 Type of Group:: Functional Skills Development Goal of Group:: To identify personal barriers that get in the way of accomplishing tasks and identify internal and external resources to help overcome difficult situations. Client Response/Progress/Benefit:: Client responded well to session, quiet, but participating when promoted. Client reported her personal barriers are negative thinking, complacency, and taking on too much. Client reflected on a time when she overcame something ?impossible? in the past, identifying returning to group and accepting help as that situation. Client reported when she focuses on this it helps client remember she is resilient. Client helped the group identify internal and external resources to help overcome barriers. Client reported coping skills that help her focusing on past successes, using mindfulness, and reaching out to supports. Client identified helpful external resources such as [employer] and spending time with friends. Client appeared to benefit from identifying internal and external strategies to help client overcome personal barriers. Client progressing with increased mood stability, but continues to report difficulty setting time boundaries. Eye Contact:: Fair Motor Activity:: Appropriate Appearance:: Casual Speech:: Appropriate Mood:: Dysthymic Affect:: Constricted Thoughts:: Linear, No evidence of hallucinations/delusions noted Staff Interventions:: Therapist facilitated discussion about internal and external resources and helped clients connect various internal resources they use. Therapist provided group members with a handout that gave information about various external resources the clients could utilize to get support. Therapist gave clients a worksheet in which they were asked to identify several barriers that get in their way to overcoming difficult situations. They also were asked to identify several internal and external resources they could use when needed.
--- NOTE | 2017-07-20 15:23 | BH.SGPN ---
Service Group Progress Note - Session Psychotherapy Session #1 Date Open:: 07/20/17 Time Started:: 09:08 Time Stopped:: 10:10 Type of Group:: Process - 8 group members Goal of Group:: The goal of today's group was to check-in with client's mood, stressors, and positives, review homework and introduce topic for the day. Client Response/Progress/Benefit:: Pt was an active participant in group discussion and feedback. Shared with the group some of her activities in the past few days. Shared some frustrations related to work. She continues to be active and has decreased her isolative beahviors. Overal reports that she is managing her emotions through skills learned. Benefited from group support and praise. Continued treatment to maintain safety, prevent decompensation, and improve daily functioning. Eye Contact:: Good Motor Activity:: Restless Appearance:: Casual Speech:: Appropriate Mood:: Anxious Affect:: Congruent Thoughts:: Linear, Logical, No evidence of hallucinations/delusions noted Staff Interventions:: Therapist used open-ended questions to elicit information about client's current stressors and mood state. Therapist was supportive by using active listening and reflection.
--- NOTE | 2017-07-23 15:02 | BH.SGPN_ITS ---
Service Group Progress Note - Session Psychotherapy Session #2 Date Open:: 07/23/17 group members Time Started:: 10:30 Time Stopped:: 11:15 Targeted Problem #:: 1 Type of Group:: Illness Management Goal of Group:: To increase understanding of communication and the various types of communication. Another goal was to increase understanding of impact communication styles can have. Client Response/Progress/Benefit:: Client responded well to session, passive participant. Client helped the group identify barriers to communication such as rehearsing, distractions, and mind-reading. Client helped group identify various communication styles and reported she uses the passive and passive aggressive types. Client stated, ?I?m a people pleaser, but I?m also very sarcastic.? Client stated these communication styles negatively impact client?s mental health as she does not verbalize her needs which results in them not getting met. Client appeared to benefit from learning the different types of communication styles as well as increasing awareness of how communication impacts mental health. Client progressing as shown by her report of high insight to coping skills that help client, but continues to struggle with implementing these into her daily life. Eye Contact:: Poor Motor Activity:: Slowed Appearance:: Casual Speech:: Soft Mood:: Dysthymic Affect:: Flat Thoughts:: Linear, No evidence of hallucinations/delusions noted Staff Interventions:: Therapist facilitated the group discussion about communication and explained the different types of communication. Therapist assisted group members in connecting the communication styles to the way they communicate and impact the communication style has on their relationships. Therapist provided support by using active listening and providing feedback. Psychotherapy Session #3 Date Open:: 07/23/17 group members Time Started:: 11:25 Time Stopped:: 12:15 Targeted Problem #:: 1 Type of Group:: Functional Skills Development Goal of Group:: To identify important components of communication and practice specific, clear communication. Client Response/Progress/Benefit:: Client responded well to session, active participant, providing supportive statements to peers. Client reported tried to use assertive communication in the activity by being specific and direct. Client helped the group identify strategies to increase assertive communication including being aware of body language and tone of voice, expressing warning signs and triggers, and managing emotions. Client reported she plans to work on increasing her confidence by ?learning to accept compliments.? Client shared this would help her be more receptive and assertive when communicating. Client appeared to benefit from identifying ways to improve her communication. Client to continue IOP to promote mood stability and start reimplementing healthy coping skills. Eye Contact:: Fair Motor Activity:: Appropriate Appearance:: Neat Speech:: Appropriate Mood:: Dysthymic Affect:: Flat Thoughts:: Linear, No evidence of hallucinations/delusions noted Staff Interventions:: Therapist led the discussion about important components of effective communication. Therapist provided each group member with the same three materials and broke the group into pairs. Therapist facilitated a communication activity in which the group members would have to achieve a goal by using effective communication to achieve such goal. Therapist processed the activity with the group.
--- NOTE | 2017-07-24 12:21 | BH.SGPN ---
Service Group Progress Note - Session Psychotherapy Session #1 Date Open:: 07/24/17 Time Started:: 09:05 Time Stopped:: 10:05 Targeted Problem #:: 1 Type of Group:: Process - 5 members Goal of Group:: The goal of today's group was to check-in with client's mood, stressors, and positives, review homework and introduce topic for the day. Client Response/Progress/Benefit:: Client reported she had a lousy night of sleep, attributing this to feeling more anxious after her doctor's appointment yesterday. Client reported at the doctor's she was told she might be diabetic based on some of the symptoms she was talking about, but also is going to be completed a sleep study to see if she has sleep apnea. Client shared feeling frustration with the fact she will get results from the sleep apnea until December. Client able to identify listening to music and may be going to the gym is too healthy coping strategies she can utilize to help her manage her frustration and anxiety. Client seems to be struggling with coping with various stressors which results in her thinking negatively. Seemed to benefit from brainstorming what strategies she can utilize to help manage her symptoms currently. Eye Contact:: Fair Motor Activity:: Appropriate Appearance:: Casual Speech:: Appropriate Mood:: Depressed Affect:: Constricted Thoughts:: Linear, No evidence of hallucinations/delusions noted Staff Interventions:: Therapist used open-ended questions to elicit information about client's current stressors and mood state. Therapist was supportive by using active listening and reflection.
--- NOTE | 2017-07-24 15:51 | BH.MDN ---
Multi-Disciplinary Note - Note 30-min Individual Time Started:: 13:00 Date: 07/24/17 Purpose of session/treatment goals addressed:: The purpose of this session was to work on goal #1 objective #1 of client's treatment plan. Another goal was to encourage communication of mental health needs with positive supports. Eye Contact:: Fair Motor Activity:: Slowed Appearance:: Disheveled Speech:: Soft Mood:: Dysthymic Affect:: Flat - client became tearful Thoughts:: Linear, No evidence of hallucinations/delusions noted Staff Interventions:: Therapist used active listening and open-ended questions to explore client's current stressors, cognitive distortions, and symptoms. Therapist provided emotional validation while helping client identify thinking errors that exacerbate depression. Therapist educated client on negative maintenance cycles and introduced techniques to help client increase awareness of her negative thinking patterns and redirect them. Therapist used strengths perspective to empower client on small successes. Client Response:: Client responded well session, open to meeting with therapist, but tearful throughout while discussing negative thoughts. Client shared negative thinking is like second nature to me. Client identified her most recent cognitive distortions to be I'm a loser and I'm never going to be successful again. Client had insight that these thoughts were not true as client stated, there's no evidence that says I'm a loser. Client and therapist discussed how comparisons, societys expectations, and self-judgement can hinder progress and further strengthen negative core beliefs. Client reported she frequently focuses on what others think of her using mind-reading and disqualifying the positives. Client stated she has been struggling with challenging negative thoughts by herself I'm just not there yet. Client was receptive to challenging distorted thoughts with therapist present while working on gaining awareness of red flags for distorted thoughts at home. Client identified her cognitive distortion red flags to be if the thought is something I wouldnt say to someone else and thinking in absolutes. Client agreed to keep track every time she has notices a red flag and redirect her thought by circling a positive trait about herself. Client and therapist discussed negative maintenance cycles and how they can keep client stuck. Client shared she could use more mental health support from her family and friends. Client was receptive to reaching out to her daughter this week. Risks/Concerns:: Client denies suicidal ideation, plan, and intent as of 07/24/17. Client identifies her daughters protective factors. Progress Toward Goals/Plan:: Client is demonstrating some progress towards treatment goals per her report of an improved mood since starting IOP. However, client continues to endorse negative thinking, anhedonia, and a depressed mood nearly every day. Client has been spending time with supports rather than isolating which demonstrates progress, but reports numerous barriers in implementing thought challenging which keeps client stuck. Client to continue IOP to promote mood stability and reimplement healthy coping skills. Client to communicate mental health needs with her daughter. Time Stopped:: 13:30
--- NOTE | 2017-07-24 16:24 | BH.MDN_ITS ---
Multi-Disciplinary Note - Note 30-min Individual Time Started:: 13:00 Date: 07/24/17 Purpose of session/treatment goals addressed:: The purpose of this session was to work on goal #1 objective #1 of client's treatment plan. Another goal was to encourage communication of mental health needs with positive supports. Eye Contact:: Fair Motor Activity:: Slowed Appearance:: Disheveled Speech:: Soft Mood:: Dysthymic Affect:: Flat - client became tearful Thoughts:: Linear, No evidence of hallucinations/delusions noted Staff Interventions:: Therapist used active listening and open-ended questions to explore client's current stressors, cognitive distortions, and symptoms. Therapist provided emotional validation while helping client identify thinking errors that exacerbate depression. Therapist educated client on negative maintenance cycles and introduced techniques to help client increase awareness of her negative thinking patterns and redirect them. Therapist used strengths perspective to empower client on small successes. Client Response:: Client responded well session, open to meeting with therapist , but tearful throughout while discussing negative thoughts. Client shared negative thinking is like second nature to me. Client identified her most recent cognitive distortions to be I'm a loser and I'm never going to be successful again. Client had insight that these thoughts were not true as client stated, there's no evidence that says I'm a loser. Client and therapist discussed how comparisons, society?s expectations, and self-judgement can hinder progress and further strengthen negative core beliefs. Client reported she frequently focuses on what others think of her using mind-reading and disqualifying the positives. Client stated she has been struggling with challenging negative thoughts by herself I'm just not there yet. Client was receptive to challenging distorted thoughts with therapist present while working on gaining awareness of red flags for distorted thoughts at home. Client identified her cognitive distortion red flags to be ?if the thought is something I wouldn?t say to someone else? and thinking in absolutes. Client agreed to keep track every time she has notices a red flag and redirect her thought by circling a positive trait about herself. Client and therapist discussed negative maintenance cycles and how they can keep client stuck. Client shared she could use more mental health support from her family and friends. Client was receptive to reaching out to her daughter this week. Risks/Concerns:: Client denies suicidal ideation, plan, and intent as of . Client identifies her daughters protective factors. Progress Toward Goals/Plan:: Client is demonstrating some progress towards treatment goals per her report of an improved mood since starting IOP. However, client continues to endorse negative thinking, anhedonia, and a depressed mood nearly every day. Client has been spending time with supports rather than isolating which demonstrates progress, but reports numerous barriers in implementing thought challenging which keeps client stuck. Client to continue IOP to promote mood stability and reimplement healthy coping skills. Client to communicate mental health needs with her daughter. Time Stopped:: 13:30
--- NOTE | 2017-07-26 10:34 | BH.SGPN_ITS ---
Service Group Progress Note - Session Psychotherapy Session #1 Date Open:: 18 - 6 group members Time Started:: 09:06 Time Stopped:: 10:03 Targeted Problem #:: 1 Type of Group:: Process Goal of Group:: The goal of today's group was to check-in with client's mood, stressors, and positives, and review homework. Client Response/Progress/Benefit:: Client responded well to session, providing supportive statements to peers. Client reports feeling relieved today as she took an empowering step and opened up about her mental health on [employer]. Client stated, I've been wanting to do this for years?It feels freeing. Client reported she did this to empower herself and reach out to others who may be struggling with mental health. Client shared she was pleasantly overwhelmed by the amount of positive support she received. Client stated she plans to maintain her improved mood and empowerment by focusing on her small goals and the positive supports. Client appeared to benefit from sharing her recent positive with the group and receiving supportive statements. Client seems to be progressing as evidenced by her report of an improved mood and outlook, but can continue to benefit from maintenance of healthy coping skills such as thought challenging. Eye Contact:: Good Motor Activity:: Appropriate Appearance:: Neat Speech:: Appropriate Mood:: Euthymic Affect:: Full Thoughts:: Linear, No evidence of hallucinations/delusions noted Staff Interventions:: Therapist used open-ended questions to elicit information about client's current stressors, coping, and mood state. Therapist was supportive by using active listening and reflection.
--- NOTE | 2017-07-26 15:19 | BH.SGPN ---
Service Group Progress Note - Session Psychotherapy Session #2 Date Open:: 07/26/17 Time Started:: 10:14 Time Stopped:: 11:12 Targeted Problem #:: 1 Type of Group:: Illness Management - 5 participants Goal of Group:: To identify the importance of change, increase understanding of difficulty of making change, identify what clients would like to make changes in and identify the barriers or obstacles that get in the way of change. Staff Interventions:: Therapist facilitated discussion about change and helped client?s make connections of why change is important. Therapist led group in an experiential activity which involved client?s identifying changes want to make and barriers that get in the way of making those changes. Therapist utilized activity as a tool to help client?s make connections of difficulties in making changes and identify what helps overcome barriers to change. Psychotherapy Session #3 Date Open:: 07/26/17 Time Started:: 11:20 Time Stopped:: 12:10 Targeted Problem #:: 1 Type of Group:: Functional Skills Development - 7 participants Goal of Group:: To identify specific barriers to an identified change clients would want to make and identify ways to overcome those barriers. Staff Interventions:: Therapist facilitated discussion about what helped the group overcome challenges that came about during the experiential activity. Therapist utilized the activity as a tool in relating those experiences to ways to overcome barriers with challenges in their life when trying to make change. Therapist group into smaller groups and had them brainstorm ways to overcome certain barriers to their identified change. Therapist provided support by using reflective listening and providing feedback.
--- NOTE | 2017-07-27 11:47 | BH.MDN ---
Multi-Disciplinary Note - Note 30-min Individual Time Started:: 11:25 Date: 07/27/17 Purpose of session/treatment goals addressed:: The purpose of this session was to follow-up and assess for risk after process group as client had rated high on dx mood track in areas of SI and hopelessness. Another purpose was to discuss with Client ways to identify depression warning signs and alternatives to self-harming during times of increased depressive thoughts. Eye Contact:: Good Motor Activity:: Appropriate Appearance:: Casual Speech:: Appropriate Mood:: Dysthymic Affect:: Congruent Thoughts:: Linear, Logical, No evidence of hallucinations/delusions noted Staff Interventions:: Therapist used active listening and open-ended questions to explore client's current thoughts and stressors leading to recent influx in depressive thinking as well as self-harming behaviors. Therapist provided Client with a safe space to process frustrations regarding ongoing depressive symptoms and identify potential warning signs or triggers on previous date. Therapist validated CLient emotions and provided psychoeducation regarding alternatives to self-harming. Therapist used motivational interviewing to aide Client in developing a plan for managing emotions and challenging negative thinking patterns over the weekend. Client Response:: Client responded well session, open to meeting with therapist following group. Client discussed feeling better compared to earlier this morning. She discussed that having the opportunity to process with the group as well as the supportive feedback provided by fellow participants helped Client to begin to identify more positive ways of reframing her thoughts. She reflected on her previous day and indicated I dont really know what it was...I mean it's the strangest thing, I had an otherwise good day. Client shared she had left group feeling motivated to get some things done on her computer and had decided to go to [employer] to do so as this would allow her to continue to be around others. CLient shared that while working she began to feel increasingly depressed and indicated not knowing what might have triggered these thoughts and feelings. When asked what Client did to challenge or cope with she indicated buying a pack of cigarettes and watching t.v. Client discussed that neither of these had improved her mood and she had the thought that well at least if I kill myself everyone will know why. Client expressed being upset and scared by this thought. She denied any plan or intent to act on the thought on the time and went on to share remembering that self-harming had helped her in the past. Client reports engaging in self-harming behavior via burning. She expressed guilt and remorse afterward as she has not engaged in self-harm for several years. Client responded well to working with therapist on identifying healthier alternatives to managing depressive symptoms. 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 Client expressed no longer experiencing passive SI or urges to self harm and indicates ability to maintain safety. Risks/Concerns:: Client denies active suicidal ideation, plan or intent as of 07/27/17. She has a history of chronic passive thoughts, though denies plan or intent. CLient indicates most recent SI occurring yesterday with thoughts of well atleast if I kill myself everyone will know why. Client denied any specific plan at the time though indicates engaging in self-harming behaviors via burning. Client denies any current urges to self-harm. Indicates an ability to maintain safety and is willing and aware of crisis resources available should she feel unable to maintain safety over the weekend. Progress Toward Goals/Plan:: Client is demonstrating inconsistent progress towards treatment goals as she struggles significantly with dichotomous thinking which has led Client to inconsistently utilize healthy means of coping. Client continues to struggle with applying healthy coping strategies during times of distress and often resorts to former unhelpful means of managing anxiety/overwhelming stress such as smoking or self-harming. Client recently engaged in self-injurious behavior via burning; however, expresses remorse related to engaging in such behavior. Client able to identify possible alternative distress tolerance skills she may use. Client to continue IOP to prevent decompensation, maintain stability, and continue to increase consistent use of healthy coping skills. Time Stopped:: 11:42
--- NOTE | 2017-07-27 14:08 | BH.SGPN ---
Service Group Progress Note - Session Psychotherapy Session #2 Date Open:: 07/27/17 Time Started:: 10:30 Time Stopped:: 11:20 Targeted Problem #:: 1 Type of Group:: Illness Management Goal of Group:: The goal of group was to increase understanding of coping strategies and impact problems have on self. Another goal was to practice utilizing coping skills in the moment. Eye Contact:: Good Motor Activity:: Appropriate Appearance:: Casual Speech:: Appropriate Mood:: Dysthymic Affect:: Congruent Thoughts:: Linear, Logical, No evidence of hallucinations/delusions noted Staff Interventions:: Therapist facilitated the group discussion about coping strategies. Therapist group and activity challenge them to work together in utilize healthy coping skills in the moment. Therapist utilized the activity as a tool to process what it feels like when dealing with problems and what strategies they used to cope throughout activity. Psychotherapy Session #3 Date Open:: 07/27/17 Time Started:: 11:30 Time Stopped:: 12:20 Targeted Problem #:: 1 Type of Group:: Functional Skills Development Goal of Group:: The goal of group was to increase client???s ability to recognize the different between an internal and external coping strategy. Another goal was to increase client???s self-awareness on their use of coping strategies and increase repertoire of healthy coping strategies. Eye Contact:: Good Motor Activity:: Appropriate Appearance:: Casual Speech:: Appropriate Mood:: Dysthymic Affect:: Congruent Thoughts:: Linear, Logical, No evidence of hallucinations/delusions noted Staff Interventions:: Therapist facilitated discussion about the different types of coping skills. Therapist led group in an activity in which group members were asked to brainstorm coping strategies that fit in each coping skill category. Therapist led a discussion about whether the coping strategies identified were healthy or unhealthy.
--- NOTE | 2017-07-27 15:00 | BH.SGPN ---
Service Group Progress Note - Session Psychotherapy Session #1 Date Open:: 07/27/17 Time Started:: 09:05 Time Stopped:: 10:16 Targeted Problem #:: 1 Type of Group:: Process - 7 participants Goal of Group:: The goal of today's group was to check-in with client's mood, stressors, and positives, review homework. Thoughts:: No evidence of hallucinations/delusions noted Staff Interventions:: Therapist used open-ended questions to elicit information about client's current stressors and mood state. Therapist reviewed homework assigned from previous groups. Therapist was supportive by using active listening and reflection.
[2017-10-19 14:57] VITALS: BP 135/90; PULSE 86; RESP 14
== END 2017-07-28 23:59 ==
LOC: BHIOP 09:00
PROVIDERS: Family Provider Family Medicine; PCP Family Medicine; Visit Provider Psychiatry & Neurology Psychiatry
DX: F31.81 Bipolar II disorder (principal); F43.10 Post-traumatic stress disorder, unspecified; F41.9 Anxiety disorder, unspecified; F17.210 Nicotine dependence, cigarettes, uncomplicated
CPT/HCPCS: H0035; 90832; 90834; 90853; G0410

== ENCOUNTER → 2017-07-23 10:35 | Outpatient (CLI) | payer MEDICARE, SELFPAY ==
[2017-07-23 12:07] LABS: Cholesterol 222 mg/dL (200); High Density Lipoprotein 40 mg/dL; Triglycerides 210 mg/dL; Very Low Density Lipoprotein 42 mg/dL (5-40)
[2017-07-23 12:11] LABS: Hemoglobin A1c 5.1 % (4.2-6.3)
== END ==
PROVIDERS: Family Provider Family Medicine; PCP Family Medicine
DX: R35.8 Other polyuria (principal); Z13.220 Encounter for screening for lipoid disorders; Z79.899 Other long term (current) drug therapy
CPT/HCPCS: 80061; 83036

== ENCOUNTER 2017-07-30 09:00 | Outpatient (RCR) | payer MEDICARE, SELFPAY ==
[2017-07-29 01:12] VITALS: PULSE 86; RESP 14
--- NOTE | 2017-07-30 11:59 | BH.MDN ---
Multi-Disciplinary Note - Note 30-min Individual Time Started:: 11:25 Date: 07/27/17 Purpose of session/treatment goals addressed:: The purpose of this session was to follow-up and assess for risk after process group as client had rated high on dx mood track in areas of SI and hopelessness. Another purpose was to discuss with Client ways to identify depression warning signs and alternatives to self-harming during times of increased depressive thoughts. Eye Contact:: Good Motor Activity:: Appropriate Appearance:: Casual Speech:: Appropriate Mood:: Dysthymic Affect:: Congruent Thoughts:: Linear, Logical, No evidence of hallucinations/delusions noted Staff Interventions:: Therapist used active listening and open-ended questions to explore client's current thoughts and stressors leading to recent influx in depressive thinking as well as self-harming behaviors. Therapist provided Client with a safe space to process frustrations regarding ongoing depressive symptoms and identify potential warning signs or triggers on previous date. Therapist validated CLient emotions and provided psychoeducation regarding alternatives to self-harming. Therapist used motivational interviewing to aide Client in developing a plan for managing emotions and challenging negative thinking patterns over the weekend. Client Response:: Client responded well session, open to meeting with therapist following group. Client discussed feeling better compared to earlier this morning. She discussed that having the opportunity to process with the group as well as the supportive feedback provided by fellow participants helped Client to begin to identify more positive ways of reframing her thoughts. She reflected on her previous day and indicated I dont really know what it was...I mean it's the strangest thing, I had an otherwise good day. Client shared she had left group feeling motivated to get some things done on her computer and had decided to go to [employer] to do so as this would allow her to continue to be around others. CLient shared that while working she began to feel increasingly depressed and indicated not knowing what might have triggered these thoughts and feelings. When asked what Client did to challenge or cope with she indicated buying a pack of cigarettes and watching t.v. Client discussed that neither of these had improved her mood and she had the thought that well at least if I kill myself everyone will know why. Client expressed being upset and scared by this thought. She denied any plan or intent to act on the thought on the time and went on to share remembering that self-harming had helped her in the past. Client reports engaging in self-harming behavior via burning. She expressed guilt and remorse afterward as she has not engaged in self-harm for several years. Client responded well to working with therapist on identifying healthier alternatives to managing depressive symptoms. 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 Client expressed no longer experiencing passive SI or urges to self harm and indicates ability to maintain safety. Risks/Concerns:: Client denies active suicidal ideation, plan or intent as of 07/27/17. She has a history of chronic passive thoughts, though denies plan or intent. CLient indicates most recent SI occurring yesterday with thoughts of well atleast if I kill myself everyone will know why. Client denied any specific plan at the time though indicates engaging in self-harming behaviors via burning. Client denies any current urges to self-harm. Indicates an ability to maintain safety and is willing and aware of crisis resources available should she feel unable to maintain safety over the weekend. Progress Toward Goals/Plan:: Client is demonstrating inconsistent progress towards treatment goals as she struggles significantly with dichotomous thinking which has led Client to inconsistently utilize healthy means of coping. Client continues to struggle with applying healthy coping strategies during times of distress and often resorts to former unhelpful means of managing anxiety/overwhelming stress such as smoking or self-harming. Client recently engaged in self-injurious behavior via burning; however, expresses remorse related to engaging in such behavior. Client able to identify possible alternative distress tolerance skills she may use. Client to continue IOP to prevent decompensation, maintain stability, and continue to increase consistent use of healthy coping skills. Time Stopped:: 11:42
--- NOTE | 2017-07-30 12:04 | BH.SGPN ---
Service Group Progress Note - Session Psychotherapy Session #1 Date Open:: 07/30/17 Time Started:: 09:05 Time Stopped:: 10:04 Targeted Problem #:: 1 Type of Group:: Process - 7 group members Goal of Group:: The goal of today's group was to check-in with client's mood, stressors, and positives, review homework and introduce topic for the day. Client Response/Progress/Benefit:: Client shared she is feeling relieve this morning because over the weekend she discovered what she believes contributed to her difficult days last week. Client reported when she is refilling her pill reyes she discovered she did not take her medications on Sunday evening which all of her meds she takes at that time are her mood stabilizers. Client shared she feels much better knowing that there is because her symptoms are reason that she had been struggling because previous to she had been feeling much better and was starting to do well. Client shared knowing this helped improve her weekend. 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 Client reported feeling much more stable today. Client shown progress as evidenced by improved positive attitude as well as reporting utilization of healthy coping strategies. Client seemed to benefit from support expressing thoughts and feelings. Eye Contact:: Fair Motor Activity:: Appropriate Appearance:: Casual Speech:: Appropriate Mood:: Euthymic Affect:: Constricted Thoughts:: Linear, Logical, No evidence of hallucinations/delusions noted Staff Interventions:: Therapist used open-ended questions to elicit information about client's current stressors and mood state. Therapist was supportive by using active listening and reflection.
--- NOTE | 2017-07-30 13:56 | BH.SGPN_ITS ---
Service Group Progress Note - Session Psychotherapy Session #2 Date Open:: 07/30/17 group members Time Started:: 10:17 Time Stopped:: 11:14 Targeted Problem #:: 1 Type of Group:: Illness Management Goal of Group:: The goal of group was to increase understanding of coping strategies and impact problems have on self. Another goal was to practice utilizing coping skills in the moment. Client Response/Progress/Benefit:: Client responded well to session, quiet, but participating when prompted. Client discussed healthy versus unhealthy coping skills and shared the coping skills one uses often comes from ?what we learned growing up.? Client shared it is easy to use healthy coping skills when one is feeling well, but more challenging on bad days. Client participated in an activity aimed to help client's use in the moment coping strategies, and could cope with her emotions to complete the activity. Client shared ?sometimes it seems like we are doing well, but we aren?t sturdy.? Client agreed with peers that quality is more important than quantity when it comes to effectively using coping skills. Client stated one must have a balance of internal and external coping skills and recognized she has a good balance of both. Client appeared to benefit from increasing awareness of how one learns coping skills and the importance of having a balance of internal and external coping skills. Client demonstrating progress with recognizing warning signs, but continues to struggle with consistently using healthy coping skills. Eye Contact:: Poor Motor Activity:: Appropriate Appearance:: Neat Speech:: Appropriate Mood:: Dysthymic Affect:: Constricted Thoughts:: Linear, No evidence of hallucinations/delusions noted Staff Interventions:: Therapist facilitated the group discussion about coping strategies. Therapist provided group members with folders and gave them the challenge to work together and build the tallest tower with the given supplies. Therapist utilized the activity as a tool to process what it feels like when dealing with problems and what strategies they used to cope throughout activity. Psychotherapy Session #3 Date Open:: 07/30/17 group members Time Started:: 11:22 Time Stopped:: 12:15 Targeted Problem #:: 1 Type of Group:: Functional Skills Development Goal of Group:: Goal was to increase client?s self-awareness on their use of coping strategies and increase repertoire of healthy coping strategies. Client Response/Progress/Benefit:: Client responded well to session, providing to group discussion. Client helped the group develop a list of coping skills for the following categories: distraction, self-love, thought challenge, emotional release, and grounding. Client stated it is important to use skills from each category as they all help regulate emotions differently. Client provided insight to various grounding techniques and shared the information with peers. Client created a 'coping skills menu' which included, deep breathing , mindfulness, getting back into crafting, earthing, going to a sauna, and writing out her cognitive distortions. Client reported her biggest barriers is utilizing the skills on her ?bad days? as in the past client has reverted to unhealthy forms of coping. Client appeared to benefit from gaining awareness of the various types of coping skills and the purpose each category serves. Client progressing as evidenced by her ability to bounce back from a setback last week , but can continue to benefit from mood stability and coping skill maintenance. Eye Contact:: Fair Motor Activity:: Appropriate Appearance:: Neat Speech:: Appropriate Mood:: Euthymic Affect:: Constricted Thoughts:: Linear, No evidence of hallucinations/delusions noted Staff Interventions:: Therapist facilitated discussion about the different types of coping skills. Therapist led group in an activity in which group members were asked to brainstorm coping strategies that fit in each coping skill category. Therapist reviewed each coping strategy with the group and led a discussion about whether the coping strategies identified were healthy or unhealthy. Therapist provided homework in which group members creating a coping skills menu and would practice two skills a day.
--- NOTE | 2017-07-30 14:18 | BH.COMM ---
Communication Note - Communication with Client Communication Note: This therapist spoke with client's outpatient therapist, Thi Still, for continuity of care purposes. Therapist and Thi discussed client's progress, updates, and aftercare plans. Therapist to follow up with Thi closer to client discharge.
--- NOTE | 2017-07-31 12:09 | BH.SGPN ---
Service Group Progress Note - Session Psychotherapy Session #1 Date Open:: 07/31/17 Time Started:: 09:03 Time Stopped:: 10:10 Targeted Problem #:: 1 Type of Group:: Process - 5 participants Goal of Group:: The goal of today's group was to check-in with client's mood, stressors, and positives, review homework and introduce topic for the day. Client Response/Progress/Benefit:: Client willing to attend session and appeared to benefit from engaging in the group as Client discussed ongoing difficulties with rumination the past two days. Client shared that she is having a hard time focusing on the present as she has been worried that she will no longer be able to afford on of her medications. Client went on to explain that her insurance is giving CLient a difficult time about covering the cost of the medication which has increased CLient anxiety and stress levels. CLient did well to identify that while the insurance company figures things out there is nothing within the situation she is able to control; however, struggled to identify healthy ways to distract or challenge her intrusive thoughts. CLient shared that being with others is helpful and that she is glad she attended group on this date. She was receptive or supportive feedback and suggestions provided by fellow participants though struggled with disqualifying the positive encouragement provided. Client recommended continued IOP to maintain stability and increase implementation of skills learned. Eye Contact:: Fair Motor Activity:: Appropriate Appearance:: Casual Speech:: Appropriate Mood:: Anxious, Depressed Affect:: Full Thoughts:: Logical, Racing, No evidence of hallucinations/delusions noted Staff Interventions:: Therapist used open-ended questions to elicit information about client's current stressors and mood state. Therapist was supportive by using active listening and reflection.
--- NOTE | 2017-07-31 14:50 | BH.MDN_ITS ---
Multi-Disciplinary Note - Note 60-min Individual Time Started:: 11:30 Date: 07/31/17 Purpose of session/treatment goals addressed:: The purpose of this session to was address client's current stressor with medication and identify coping strategies and supports that can help client manage negative thinking and anxiety. Another goal was to advocate for client's needs by contacting her insurance company. Eye Contact:: Good Motor Activity:: Appropriate Appearance:: Neat Speech:: Appropriate Mood:: Anxious, Dysthymic Affect:: Flat - Client became tearful Thoughts:: Racing, No evidence of hallucinations/delusions noted Staff Interventions:: Therapist used active listening, open-ended questions, and empathetic responses to validate client's emotions, provide emotional support, and gather information on current stressors. Therapist advocated for client by sitting with client as client called her psychiatrist and insurance company. Therapist gently challenged client to focus on aspects of the situation in her control and discussed radical acceptance. Therapist reviewed external and internal coping skills client could utilize today to manage symptoms and reviewed alternative self-harm strategies. Client Response:: Client responded well to session, appeared distracted and expressing anxiety regarding medication. Client shared I hate to be a [place] downer but I just don't see any positives. Client and therapist identified the factors that make up her current stressor including time, money, and self-care. Client shared she runs out of her medication and will not be able to afford it after that. Client and therapist identified client's external and internal supports and coping strategies that may help in this situation. Client asked therapist to provide emotional support as client called her psychiatrist and insurance provider for more information. Client received upsetting news while on the phone, but utilized in the moment coping strategies to regulate herself. With therapist elicitation, client identified healthy coping skills she can use today. 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 Client recognized that if she does not make time for self-care and stress management, client may become too overwhelmed which could create a setback. Client shared she has been ruminating which causes client to ? go down the rabbit hole.? Client and therapist discussed strategies to challenge her ruminations and client was receptive to having a visual reminder of a positive statement to help bring client back to reality. Client and therapist discussed radical acceptance and how client may cope more effectively if she focuses on what is in her control and letting go of what she cannot change. Client agreed to follow up with Dr. Curry and to communicate with positive supports tonight to prevent decompensation. Client aware of self- sabotaging behaviors and has agreed to implement healthy strategies as she reports I've made progress, I don't want to go backwards. Risks/Concerns:: Client denies suicidal ideation, plan, and intent. Client reports ability to maintain safety and shared she will call her daughter if her negative thinking increases. Progress Toward Goals/Plan:: Client progress is variable as client continues to struggle with mood stability and coping with stressors out of her control which may hinder progress. Client is showing progress with trying to implement healthy coping strategies such as distraction and communicating with support. However, client reported she often takes on too much to distract which then leads to client feeling overwhelmed. Client to continue IOP to prevent decompensation and promote emotional regulation. Client to follow up with her insurance and Dr. Curry for medication concerns. Therapist to follow up with Dr. Curry as well. Time Stopped:: 12:30
--- NOTE | 2017-07-31 15:45 | BH.SGPN ---
Service Group Progress Note - Session Psychotherapy Session #2 Date Open:: 07/31/17 Time Started:: 10:20 Time Stopped:: 11:20 Targeted Problem #:: 1 Type of Group:: Illness Management - 7 group members Goal of Group:: To increase understanding and awareness of emotions connected to change and the impact those emotions can have on change. Client Response/Progress/Benefit:: Client listened attentively to others and contributed to discussion. Client connected with quote reporting if tell self won't change until the right time, then likely will continue to push the change off. Client related to change process, seeming to connect with performance being impacted based on where at in the change process. Client seemed to benefit from increasing awareness of barriers to change as well as learning about change process. Eye Contact:: Good Motor Activity:: Appropriate Appearance:: Neat Speech:: Appropriate Mood:: Depressed Affect:: Congruent Thoughts:: Linear, Logical, No evidence of hallucinations/delusions noted Staff Interventions:: Therapist facilitated group discussion about change. Therapist led the group in an activity in which the activity was utilized as a tool to increase clients awareness of emotions connected with change. Therapist led the processing of how each emotion was connected with change. Therapist provided psychoeducation process of change, helped group members apply it to their life. Therapist was supportive by providing feedback and using reflective listening.
--- NOTE | 2017-08-02 14:36 | BH.SGPN ---
Service Group Progress Note - Session Psychotherapy Session #2 Date Open:: 08/02/17 - 7 group members Time Started:: 10:10 Time Stopped:: 11:03 Targeted Problem #:: 1 Type of Group:: Illness Management Goal of Group:: To increase understanding of pitfalls and impact can have on mental health. Client Response/Progress/Benefit:: Client responded well to session, quiet, but engaging when prompted. Client connected with the quote, sharing ?I don?t take the right path because I get complacent. Client stated pitfalls are ?slumps,? setbacks, or hardships that are challenging to overcome. Client reported people do not always have awareness of pitfalls or communicate them with supports, which keeps them stuck. Client shared pitfalls can lead to increased depression, feelings of hopelessness, self-harm, and impulsive decisions. Client appeared to benefit from increasing awareness of the impact pitfalls have on mental health. Client to continue IOP to promote more consistent mood stability and use of coping skills. Eye Contact:: Fair Motor Activity:: Appropriate Appearance:: Casual Speech:: Appropriate Mood:: Euthymic Affect:: Congruent Thoughts:: Linear, No evidence of hallucinations/delusions noted Staff Interventions:: Therapist facilitated discussion about pitfalls and assisted group in identifying common pitfalls that can set you back. Therapist led group in an activity to help group understand impact pitfalls can have on oneself and identify strategies that could help you get back on the right path. Therapist provided support by using active listening and providing feedback. Psychotherapy Session #3 Date Open:: 08/02/17 - 6 group members Time Started:: 11:10 Time Stopped:: 12:10 Targeted Problem #:: 1 Type of Group:: Functional Skills Development Goal of Group:: To identify personal pitfalls and what keeps them stuck from moving forward. Client Response/Progress/Benefit:: Client responded well to session, active in discussion. Client identified her personal pitfalls to be: complacency, negative thinking, low self-esteem, and impulsivity. Client reported she does not always have awareness of her pitfalls, but shared, one warning sign is not being able to do it on my own. Client identified strategies to overcome pitfalls such as keeping awareness, challenging negative thoughts, and dedicating a half-hour per day on work to avoid complacency. Client appeared to benefit from increasing awareness of personal pitfalls. Progress noted as shown by client's improved mood, but can continue to benefit from mood stability and use of internal coping skills. Eye Contact:: Good Motor Activity:: Appropriate Appearance:: Casual Speech:: Appropriate Mood:: Euthymic Affect:: Constricted Thoughts:: Linear, No evidence of hallucinations/delusions noted Staff Interventions:: Therapist facilitated activity in which group members were given the task to identify personal pitfalls and what keeps them stuck from moving past the pitfall. Therapist provided group members with the homework assignment of identifying strategies that can help them overcome pitfalls.
--- NOTE | 2017-08-03 11:31 | BH.SGPN ---
Service Group Progress Note - Session Psychotherapy Session #1 Date Open:: 08/03/17 Time Started:: 09:00 Time Stopped:: 10:00 Type of Group:: Process - 9 group members Goal of Group:: The goal of today's group was to check-in with client's mood, stressors, and positives, review homework and introduce topic for the day. Client Response/Progress/Benefit:: Active participant in group discussion. Provided appropriate feedback to peers. Emotion for today is relieved. Shared that she met with her psychiatrist and they were able figure out a way to get the cost of her prescriptions down. She remarked that she was proud of the fact the she advocated for herself so adamantly and didn't simply just give up. Group provided feedback and praised her for her efforts which she benefited from. Will continue in treatment to maintain gains, prevent decompensation, and stabilize mood. Eye Contact:: Good Motor Activity:: Appropriate Appearance:: Casual Speech:: Appropriate Mood:: Euthymic Affect:: Full Thoughts:: Linear, Logical, No evidence of hallucinations/delusions noted Staff Interventions:: Therapist used open-ended questions to elicit information about client's current stressors and mood state. Therapist was supportive by using active listening and reflection
--- NOTE | 2017-08-03 13:43 | BH.SGPN ---
Service Group Progress Note - Session Psychotherapy Session #2 Date Open:: 08/03/17 Time Started:: 10:15 Time Stopped:: 11:05 Targeted Problem #:: 1 Type of Group:: Illness Management - 6 group members Goal of Group:: To increase understanding of a crisis and improve clients awareness of how he/she feels when in a crisis. Client Response/Progress/Benefit:: Pt related to quote by providing an example of the recent crisis of her current medication not being covered by insurance and worries she wouldn't be able to afford it. Pt shared at first she was negative and believed nothing would work, but the situation has opened her eyes to the fact if she doesn't give up and keeps trying she can get things accomplished even if appears impossible initially. Pt contributed positively to discussion about how one crisis can turn into personal crisis based on how one chris with the situation. Pt shared when she is in crisis there are many things occuring at once which in the past would have led to bigger crises; feels overwhelmed. Pt reflected on progress she's made because recognizes now a crisis she has doesn't typically turn into a bigger crisis due to using her healthy skills when needed. Seemed to benefit from increasing awareness of impact coping can have on crisis. Eye Contact:: Fair Motor Activity:: Appropriate Appearance:: Casual Speech:: Appropriate Mood:: Dysthymic Affect:: Constricted Thoughts:: Linear, Logical, No evidence of hallucinations/delusions noted Staff Interventions:: Therapist facilitated group discussion about defining a crisis and specifying various events that are considered a crisis. Therapist led group in an activity in which group members had to identify their thoughts and emotions attached to being in a crisis. Therapist provided support by using active listening and providing feedback.
--- NOTE | 2017-08-03 15:04 | PCM.PN.BLA ---
Progress Note Patient seen in follow-up for bipolar 2F 31.81, PTSD, generalized anxiety disorder. History is been obtained per interview with patient, discussion with staff, review of chart. Case discussed with treatment team. Chief complaint I have had a heck of a week. Interim history Mood generally stable and euthymic. Feels increased Lamictal to 250 mg daily has been helpful. Attributes mood stability to medication compliance and coping skills gained through IOP. Moderate ruminative anxiety increased this week regarding access to medication. Patient feared she would be unable to afford her Latuda due to change in cost. She however, was able to advocate for herself and work with outpatient providers to obtain the medication. No suicidal or homicidal ideation. No symptoms consistent with psychosis. Sleeping from 10 or 11 PM until 7 AM. Appetite normal. Denies nausea vomiting or diarrhea. Reduce caffeine to 2 small cans of soda daily. Compliant with medications including Latuda 120 mg daily, Lamictal 250 mg daily, lithium ER 450 mg twice daily. Denies adverse effects to medications. Mental status exam Alert and oriented . No acute distress. Ambulatory with normal gait and station. Appears stated age. Casually dressed and groomed. Appropriate hygiene. Cooperative with interview. Good eye contact. No psychomotor agitation or retardation. Mood euthymic. Affect congruent. Speech is clear and with regular rate and rhythm. Language fluent. Thought process organized. Associations logical. Thought content significant for ruminative anxiety. No suicidal or homicidal ideation related or detected. No symptoms consistent with psychosis noted or detected. Immediate recent and remote memory grossly intact. Attention and concentration are fair. Estimated intelligence and fund of knowledge average. Judgment and insight good. Diagnosis Bipolar 2F 31.81 PTSD Generalized anxiety disorder Nicotine use disorder Plan Continue IOP with focus on relapse prevention. She will likely benefit from ongoing IOP treatment. Risks benefits alternatives of medications discussed with patient. Patient acknowledges understanding. Continue Latuda 120 mg p.o. nightly. Continue Lamictal 250 mg p.o. nightly. Continue lithium 450 mg p.o. twice daily. Obtain lithium level and lab work per Dr. Curry. Continue follow-up with [facility] at . Encourage smoking cessation. Encouraged ongoing caffeine reduction and abstinence. 16 minutes of supportive psychotherapy provided. Patient acknowledges understanding and is in agreement with plan. Feels able to maintain safety. Agrees to seek help or emergency care feeling unsafe to self or others.
--- NOTE | 2017-08-08 10:57 | BH.SGPN ---
Service Group Progress Note - Session Psychotherapy Session #1 Date Open:: 08/08/17 Time Started:: 09:08 Time Stopped:: 10:08 Targeted Problem #:: 1 Type of Group:: Process - 5 participants Goal of Group:: The goal of today's group was to check-in with client's mood, stressors, and positives, review homework and introduce topic for the day. Client Response/Progress/Benefit:: Client attentive and willing to engage in session. 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 Client went on to indicate her emotion for the day as being cautiously optimistic as she is happy to have an interview this evening but concerned that if she begins a new job she will struggle to balance time with other people. Client shared doing most of her socializing in the evenings when she would be working if she takes the job. CLient did well to reframe the situation and identified that in the summer a positive tradeoff would be that she could spend time during the day at a friend's pool. CLient making progress in her ability to apply thought challenging skills without being prompted and benefitted from group recognition of areas in which client is progressing. She is recommended continuing IOP tx to further improve consistent application of thought challenging and reframing skills. Eye Contact:: Fair Motor Activity:: Appropriate Appearance:: Casual Speech:: Appropriate Mood:: Euthymic, Anxious Affect:: Congruent Thoughts:: Linear, Logical, No evidence of hallucinations/delusions noted Staff Interventions:: Therapist used open-ended questions to elicit information about client's current stressors and mood state. Therapist was supportive by using active listening and reflection.
--- NOTE | 2017-08-08 11:40 | BH.MDN ---
Multi-Disciplinary Note - Note 45-min Individual Time Started:: 10:35 Date: 08/08/17 Purpose of session/treatment goals addressed:: The purpose of this session was to address client's current stressors, barriers to implementing coping skills, and overall well-being. Another goal was to identify ways client can create more balance in her daily schedule to promote self-care and stress management. Discharge was also discussed. Eye Contact:: Fair Motor Activity:: Appropriate Appearance:: Neat Speech:: Appropriate Mood:: Euthymic Affect:: Constricted Thoughts:: Linear, No evidence of hallucinations/delusions noted Staff Interventions:: Therapist used active listening and open-ended questions to explore client's current stressors, barriers, and work-life balance. Therapist used motivational interviewing to promote change talk towards goals and helped client gain awareness of the consequences of poor coping skill maintenance. Therapist helped client identify ways to balance her daily routine to promote self-care and prevent burnout. Therapist gently challenged client to look at the benefits and costs of her decisions and how it impacts clients emotional wellness. Therapist and client discussed progress and came up with a tentative discharge date. Therapist gave client homework to set reminders to help client incorporate meditation and walking into her daily routine. Client Response:: Client responded well to session, at times seemed reluctant to try new skills, but overall open in discussion. Client reported belief she can start tapering her days and think of discharge. Client stated she has reduced negative thinking and has not had any suicidal thoughts in the past four weeks. Client and therapist discussed the importance of maintenance and client reported discipline is something she continually struggles with. Client shared I know if I do it, it will help me, but it's making myself follow through. Client identified the consequences of poor maintenance and stated if she is not stay consistent she will fall back to negative thoughts and unhealthy coping. Client open to reviewing her daily routine, labeling activities that give client energy and take client's energy. Client reported she is overall balanced, but when she starts another job she will be overwhelmed. Client open to adjusting her schedule to incorporate meditation as this has been helpful to client in the past. Client enjoyed the idea of setting funny reminders to help client stay motivated and remind her of the benefits. Client reported interest in joining the DBT group at [facility] post IOP discharge to promote gains. Risks/Concerns:: Client denies suicidal ideation, plan, and intent as of 4/11/18. Progress Toward Goals/Plan:: Client demonstrating progress towards treatment goals as she reports reduced depressive symptoms, negative thinking, and no suicidal thoughts. However, client continues to fill her schedule which increases stress and makes it more challenging for client to be consistent in using healthy coping skills. Client to continue IOP to promote mood stability and coping skill maintenance. Client to discharge the week of the 08/20/17 with hopes to start the DBT group at [facility]. Time Stopped:: 11:20
--- NOTE | 2017-08-13 13:21 | BH.SGPN_ITS ---
Service Group Progress Note - Session Psychotherapy Session #2 Date Open:: 08/13/17 - 6 group members Time Started:: 10:18 Time Stopped:: 11:14 Targeted Problem #:: 1 Type of Group:: Illness Management Goal of Group:: To increase understanding of what stress is, identify current life stressors, and connect impact stressors have on mental health. Client Response/Progress/Benefit:: Client responded well to session, engaged in discussion. Client appeared to connect with the quote sharing ?it?s easier said than done to choose positive thoughts.? Client shared stress can impact physical, mental, and emotional well-being. Client stated when she experiences stress she gets racing thoughts and somatic symptoms. Client identified her personal stressors as: work, money, physical health, and managing emotions. Client shared her stress jar is currently overflowing, but stated she is still managing ?well.? Client reported when her stress is overflowing? she has increased negative thinking, suicidal thoughts, increased sleep, depressed mood, and does not exercise. Client appeared to benefit from gaining awareness of personal stressors and identifying what her ?overflow? looks like. Client to continue IOP to prevent decompensation and promote mood stability. Eye Contact:: Fair Motor Activity:: Appropriate Appearance:: Neat Speech:: Soft Mood:: Anxious Affect:: Congruent Thoughts:: Linear, No evidence of hallucinations/delusions noted Staff Interventions:: Therapist facilitated discussion about stress. Therapist facilitated an activity in which group members were asked to identify various stressors they have in their life currently. Therapist instructed group members to indicate if certain stressors were larger than others. Therapist led p rocessing of each member?s stress jar and helped them connect impact the stress has on their mental health. Psychotherapy Session #3 Date Open:: 08/13/17 - 6 group members Time Started:: 11:20 Time Stopped:: 12:16 Targeted Problem #:: 1 Type of Group:: Functional Skills Development Goal of Group:: To identify what stressors clients have control over and what stressors have no control over. Another goal was to increase repertoire of healthy strategies to help manage stress. Client Response/Progress/Benefit:: Client responded well to session, engaged in discussion. Client stated the activity helped her increase awareness of the strategies she can use to manage stress and anxiety. Client discussed the importance of putting energy into reducing stressors in her control rather than ruminating on things out of her control. Client shared she has a difficult time accepting stressors out of her control, which prolongs her suffering. Client's in control stressors included managing emotions, physical health, and lo neliness. Client identified strategies for stress management such as accepting help from supports, having awareness of warning signs of stress ?overflow,? using self-care, and using positive self-talk. Client appeared to benefit from increasing her repertoire of stressing reducing coping skills. Progress noted in client?s report of less depressive symptoms, but can continue to benefit from focusing on stressors in her control. Eye Contact:: Good Motor Activity:: Appropriate Appearance:: Neat Speech:: Appropriate Mood:: Anxious Affect:: Constricted Thoughts:: Linear, No evidence of hallucinations/delusions noted Staff Interventions:: Therapist facilitated discussion about control versus no control and helped group members connect the concept to stressors. Therapist led discussion about importance of putting forth more energy on those stressors they can control. Therapist facilitated brainstorming of strategies to help manage stress level. Therapist provided support by using active listening and providing feedback.
--- NOTE | 2017-08-14 10:52 | BH.SGPN ---
Service Group Progress Note - Session Psychotherapy Session #1 Date Open:: 08/14/17 - 6 group members Time Started:: 09:05 Time Stopped:: 10:15 Targeted Problem #:: 1 Type of Group:: Process Goal of Group:: The goal of today's group was to check-in with client's mood, stressors, and positives, and introduce topic for the day. Client Response/Progress/Benefit:: Client responded well to session, quiet, but providing supportive statements at times. 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 Additionally, client reported she got news that her hours will be cut at the [employer], increasing client's anxiety and negative thinking. Client sharing several examples of all or nothing thinking, but was somewhat receptive to distortion challenging by therapist. Client reported she has been using deep breathing and plans to talk with her boss today to help regulate her emotions. Client was willing to meet with therapist after session to further process her stressors and identify a strategy to promote mood stability. Client appeared to benefit from verbalizing her emotions and gaining awareness of cognitive distortions. Progress variable as client continues to struggle with challenging negative thinking and coping with external stressors. Eye Contact:: Fair Motor Activity:: Slowed Appearance:: Casual Speech:: Appropriate Mood:: Anxious, Dysthymic Affect:: Flat Thoughts:: Racing, No evidence of hallucinations/delusions noted Staff Interventions:: Therapist used open-ended questions to elicit information about client's current stressors and mood state. Therapist was supportive by using active listening and reflection.
--- NOTE | 2017-08-14 11:00 | BH.MDN ---
Multi-Disciplinary Note - Note 30-min Individual Time Started:: 10:16 Date: 08/14/17 Purpose of session/treatment goals addressed:: The purpose of this session was to address and process client's current stressors and mood state while identifying solutions and strategies to manage emotions. Another goal was to explore client's options and identify steps to promote emotional well-being. Eye Contact:: Poor Motor Activity:: Slowed Appearance:: Casual Speech:: Appropriate Mood:: Anxious, Depressed, Other - tearful Affect:: Flat Thoughts:: Racing, No evidence of hallucinations/delusions noted Staff Interventions:: Therapist used active listening and emotional validation as client expressed her frustrations and hardships. Therapist gently challenged client's negative thinking patterns and helped client increase self-awareness to how her thoughts are keeping client stuck. Therapist used open-ended questions to build discrepancy as client is experiencing ambivalence and feels stuck. Therapist used strengths perspective to empower client on positives and help client reframe negative thoughts. Therapist used a visualization technique to help client gain awareness of the potential consequences of her choices and assist client in the decision-making process. Client Response:: Client open to meeting with therapist, tearful throughout, but responding well to challenging. 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 Client verbalized the negative thoughts she has been having such as I'm a loser, nothing will get better, I'm weak. With therapist elicitation client recognized her negative thinking was taking over which is increasing anxiety and low self-esteem. Client also shared she continually worries about what others think of her which increases self-shaming and negative core beliefs. Client and therapist discussed the importance of identifying small steps to gain control in the out of control. Client shared she plans to talk to her boss about hours, but was unsure what to do about her other job. Client receptive to discussing options, stating, I'll either need to quit and find something else or stay. Client practiced visualizing the outcome of each choice and reported if I leave I'll be worried about finding another job, but if I stay I'll be miserable and not have time for things I love. After processing, client reported staying miserable is not sustainable and will keep client further away from the mental health progress she wants. Client recognizes she needs the money, but stated she can find other work that does not trigger severe negative thinking and anxiety. 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 Risks/Concerns:: Client denies suicidal ideation, plan, and intent as of 08/14/17. Client also denies urges to self-harm. Progress Toward Goals/Plan:: Client's progress towards treatment goals continues to fluctuate as client reports ongoing struggles with maintaining mood stability, setting boundaries, and coping with external stressors. However, client has demonstrated progress with maintaining safety and refraining from self-harm. Client's all or nothing thinking keeps client stuck in a negative maintenance cycle, but client was willing to identify positives and small steps to improve her mood. Client to continue IOP to promote mood stability and increase distress tolerance skills so client can better cope with external stressors. Time Stopped:: 10:33
--- NOTE | 2017-08-14 11:44 | BH.MDN_ITS ---
Multi-Disciplinary Note - Note 30-min Individual Time Started:: 10:16 Date: 08/14/17 Purpose of session/treatment goals addressed:: The purpose of this session was to address and process client's current stressors and mood state while identifying solutions and strategies to manage emotions. Another goal was to explore client's options and identify steps to promote emotional well-being. Eye Contact:: Poor Motor Activity:: Slowed Appearance:: Casual Speech:: Appropriate Mood:: Anxious, Depressed, Other - tearful Affect:: Flat Thoughts:: Racing, No evidence of hallucinations/delusions noted Staff Interventions:: Therapist used active listening and emotional validation as client expressed her frustrations and hardships. Therapist gently challenged client's negative thinking patterns and helped client increase self-awareness to how her thoughts are keeping client stuck. Therapist used open-ended questions to build discrepancy as client is experiencing ambivalence and feels stuck. Therapist used strengths perspective to empower client on positives and help client reframe negative thoughts. Therapist used a visualization technique to help client gain awareness of the potential consequences of her choices and assist client in the decision-making process. Client Response:: Client open to meeting with therapist, tearful throughout, but responding well to challenging. 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 Client verbalized the negative thoughts she has been having such as I'm a loser, nothing will get better, I'm weak. With therapist elicitation client recognized her negative thinking was taking over which is increasing anxiety and low self-esteem. Client also shared she continually worries about what others think of her which increases self- shaming and negative core beliefs. Client and therapist discussed the importance of identifying small steps to gain control in the out of control. Client shared she plans to talk to her boss about hours, but was unsure what to do about her other job. Client receptive to discussing options, stating, I'll either need to quit and find something else or stay. Client practiced visualizing the outcome of each choice and reported if I leave I'll be worried about finding another job, but if I stay I'll be miserable and not have time for things I love. After processing, client reported staying miserable is not sustainable and will keep client further away from the mental health progress she wants. Client recognizes she needs the money, but stated she can find other work that does not trigger severe negative thinking and anxiety. 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 Risks/Concerns:: Client denies suicidal ideation, plan, and intent as of . Client also denies urges to self-harm. Progress Toward Goals/Plan:: Client's progress towards treatment goals continues to fluctuate as client reports ongoing struggles with maintaining mood stability, setting boundaries, and coping with external stressors. However , client has demonstrated progress with maintaining safety and refraining from self-harm. Client's all or nothing thinking keeps client stuck in a negative maintenance cycle, but client was willing to identify positives and small steps to improve her mood. Client to continue IOP to promote mood stability and increase distress tolerance skills so client can better cope with external stressors. Time Stopped:: 10:33
--- NOTE | 2017-08-15 09:56 | BH.MTP_ITS ---
Treatment Plan Review Date of Admission:: 07/09/17 Date of Treatment Plan Review:: 08/08/17 Admitting Diagnoses:: Bipolar 2 F31.81; PTSD; Generalized anxiety disorder; Nicotine use disorder. Current Diagnoses:: Bipolar 2 F31.81; PTSD; Generalized anxiety disorder; Nicotine use disorder. Patient's Response to Treatment:: Client appears to be responding well to treatment as shown by her consistent attendance and active participation in group and individual sessions. Client at times can be quiet in group, but participants when prompted. Client is receptive in individual sessions, but reports ongoing barriers in implementation of healthy coping skills. Client stated I get in the way of myself doing it in regards to thought challenging and reframing negative self-talk. Client has been compliant with medications and reports communicating with her positive supports to prevent isolation. Client has started implementing daily mindfulness and exercise as healthy coping skills which demonstrates progress. Status of Current Problems and Symptoms: Client reports ongoing negative thinking, poor sleep, and difficulty with setting boundaries which overloads client schedule and increases anxiety. Client reports fewer symptoms of depression, anxiety, and no suicidal thoughts, but shared she is worried about maintenance and how to stay consistent with implementing the coping skills. Client continues to report anxiety and ruminations with decision making, work, and her future. Client also has ongoing negative core beliefs of self, but reports improvements with reframing and challenging them. Lastly, client has had some complications with medication and her finances which exacerbates client 's anxiety. Problem #1 Problem Name:: Pt. to increase mood stability, reduce depressive symptoms, and S.I Status of Goals:: Client has made progress towards this treatment goal as she reports reduced intensity of depressive symptoms and no suicidal thoughts. However, client continues to report negative thoughts, rumination, and difficulty with coping with stressors out of her control. Client also continues to struggle with setting boundaries and implementing self-care which client reports impacts her mood and ability to cope. Team Recommendations:: Client recommended to continue working towards treatment goal as she continues to report negative thinking, poor sleep, and low energy. Client and therapist currently working on challenging negative thoughts, decisional balance, and self-compassion to combat negative thinking and reframe core beliefs. Client recommended to follow up with her outpatient therapist. Problem #2 Problem Name:: Pt. stabilize anxiety level and reduce rumination Status of Goals:: Client has not yet accomplished this goal as she continues to report ruminations, negative thinking, and difficulty managing stress. Client has made progress with incorporating meditation and exercise to manage her symptoms. Client and therapist currently working on setting boundaries to manage stress, challenging negative thoughts, and utilizing a daily self-care routine. Team Recommendations:: Client recommended to continue working towards treatment goal as she has made some progress, but, she reports ongoing challenges with utilizing thought challenging to reduce ruminations, catastrophizing, and black and white thinking. Client recommended to follow up with outpatient provider and continue implementing strategies learned in IOP.
--- NOTE | 2017-08-15 10:55 | BH.SGPN ---
Service Group Progress Note - Session Psychotherapy Session #1 Date Open:: 08/15/17 Time Started:: 09:08 Time Stopped:: 10:09 Targeted Problem #:: 1 Type of Group:: Process Goal of Group:: The goal of group was to check-in with clients on current mood, stressors, and positives and from previous group session. Client Response/Progress/Benefit:: Client responded well to session and was a positive participant throughout. She was able to remain actively engaged in discussion and provided supportive feedback as fellow participants shared. Client discussed feeling relieved but concerned on this day as she had taken the time to process her anxiety from previous day and weigh the pros and cons of remaining in the new position she had just started. CLient indicated identifying more cons and explained that the job had been to stressful and she felt as though she would be setting herself up for failure if she continued with it. CLient shared taking the step to quit her job which relieved some of the stress she had been experiencing but also increased concerns regarding finding another job. Client benefited from identifying the need to take some time off from the job [employer] and focus on implementing self-care strategies throughout the rest of the week. SHe shared successfully taking time to relax previous date and discussed watching a few episodes of the office as well as taking a bubble bath. CLient is displaying progress in her ability to challenge anxious thoughts and identify realistic ways of approaching them. Recommended continued IOP to further increase consistent implementation of internal coping skills as well as emotion regulation. Eye Contact:: Good Motor Activity:: Appropriate Appearance:: Casual Speech:: Appropriate Mood:: Euthymic, Anxious Affect:: Full Thoughts:: Linear, Logical, No evidence of hallucinations/delusions noted Staff Interventions:: Therapist used open-ended questions to elicit information about client's current stressors and mood state. Therapist was supportive by using active listening and reflection. Therapist utilized a quote to introduce the topic of the day.
--- NOTE | 2017-08-15 15:36 | BH.SGPN_ITS ---
Service Group Progress Note - Session Psychotherapy Session #2 Date Open:: 08/15/17 Time Started:: 10:20 Time Stopped:: 11:10 Type of Group:: Illness Management - 9 group members Goal of Group:: To increase understanding of fear and explore the negative impact fear of failure can have on mental health and decision making. Client Response/Progress/Benefit:: Pt was an active participant in group activity and discussion. Participated with group in discussion on definitions of failure. Shared how failure relates to her. She worked with the group during activity and processed the activity with group pointing out how learning from setbacks, missteps, and failures during the activity helped them accomplish their goals. Shared the top 3 things that she was able to take from the group which were; Understanding difference between setback and failures, when overwhelmed try to take a step back and re-evaluate, don't seel myself short . Progress noted through increased awareness and education on how fear of failure impacts mental wellness. Able to identify that avoiding fear altogether is unrealistic. Also able to identify how failure can be beneficial. Eye Contact:: Fair Motor Activity:: Restless Appearance:: Casual Speech:: Appropriate Mood:: Anxious Affect:: Congruent Thoughts:: Linear, Logical, No evidence of hallucinations/delusions noted Staff Interventions:: Therapist facilitated discussion about fear and impact fear of failure can have. Therapist led group in an experiential activity in which client?s would fail numerous times throughout, but were given the opportunity to try again. Therapist led the processing of the activity and assisted clients with connecting how fear of failure impacted their decision making during the activity. Psychotherapy Session #3 Date Open:: 08/15/17 Time Started:: 11:20 Time Stopped:: 12:10 Type of Group:: Functional Skills Development - 9 group members Goal of Group:: To identify the impact fear of failure has had on the group members lives and identify strategies to overcome fear of failure. Client Response/Progress/Benefit:: Active participant in group discussion and activity. Completed worksheet regarding how failure has impacted them, what they gained from the group topic, and how they plan to use topics discussed today in daily life. Shared in small group that she learned today a new perspective on failures. Plans on thining more indepth on how she approaches situations to decrease her fear of failure. Progress noted AEB increased education and awareness. Will continue in IOP to maintain gains and prevent further decompensation Eye Contact:: Fair Motor Activity:: Restless Appearance:: Casual Speech:: Appropriate Mood:: Anxious Affect:: Congruent Thoughts:: Linear, Logical, No evidence of hallucinations/delusions noted Staff Interventions:: Therapist provided each group member with a worksheet to complete that asked questions about their experiences with fear of failure. Therapist led the processing of the worksheet, helping client?s connect how fear of failure has impacted them. Therapist provided support by using active listening and providing feedback.
--- NOTE | 2017-08-17 14:50 | BH.SGPN ---
Service Group Progress Note - Session Psychotherapy Session #1 Date Open:: 08/17/17 Time Started:: 09:05 Time Stopped:: 10:15 Targeted Problem #:: 1 Type of Group:: Process Goal of Group:: The goal of today's group was to check-in with client's mood, stressors, and positives, review homework and introduce topic for the day. Client Response/Progress/Benefit:: Pt reported she is doing better since she left her second job which pt reported was overwhelming and not what she was expected. Pt reported she is still anxious and nervous about having to quit the second job which she was going to use that money to pay for her medications. Pt recognized there are other things she can do to help her afford the medications. Pt reported the last couple days she focused on self-care adn setting SMART daily goals. Pt reported trying to take it slow with finding a new job instead of taking the first job that is available. Pt showing progress with recognizing her limits and using healthy coping skills. Eye Contact:: Good Motor Activity:: Appropriate Appearance:: Casual Speech:: Appropriate Mood:: Anxious, Dysthymic Affect:: Congruent Thoughts:: Linear, Logical, No evidence of hallucinations/delusions noted Staff Interventions:: Therapist used open-ended questions to elicit information about client's current stressors and mood state. Therapist was supportive by using active listening and reflection.
--- NOTE | 2017-08-20 15:12 | BH.COMM ---
Communication Note - Communication with Client Communication Note: Therapist spoke on the phone with client's outpatient therapist, Thi Still, for continuity of care purposes and to advocate for client to join the DBT group at [facility]. Thi shared she will put a referral in for client to join DBT starting next week. Thi aware of clients upcoming discharge and the therapists discussed client scheduling a session with Thi post IOP discharge for aftercare.
--- NOTE | 2017-08-21 15:09 | BH.COMM ---
Communication Note - Communication with Client Communication Note: Client called and left a message canceling her scheduled individual and group IOP sessions today. Client reports plan to attend group 08/23/17.
--- NOTE | 2017-08-21 15:12 | BH.COMM_ITS ---
Communication Note - Communication with Client Communication Note: Client called and left a message canceling her scheduled individual and group IOP sessions today. Client reports plan to attend group .
--- NOTE | 2017-08-21 15:15 | BH.COMM_ITS ---
Communication Note - Communication with Client Communication Note: Therapist spoke on the phone with client's outpatient therapist, Thi Still, for continuity of care purposes and to advocate for client to join the DBT group at [facility]. Thi shared she will put a referral in for client to join DBT starting next week. Thi aware of client?s upcoming discharge and the therapists discussed client scheduling a session with Thi post IOP discharge for aftercare.
--- NOTE | 2017-08-24 11:08 | PCM.PN.BLA ---
Progress Note Patient seen in follow-up for bipolar 2 space F 31.81, PTSD, generalized anxiety disorder. History is been obtained per interview with patient, discussion with staff, review of chart. Case discussed with treatment team. Chief complaint I have been better and I have been worse. Stressors more than organic depression. Interim history Mild/moderate situational depressive symptoms wax and wane past 3 weeks which she associates with recent stressors. Identifies that her depression is situational and increased compared to 1 month ago. She has moderate ruminative anxiety regarding finances. 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 She is currently job seeking. Discussed her recent use of problem solving skills. No suicidal or homicidal ideation. No symptoms consistent with psychosis. Forward thinking. Plans to volunteer at the [employer]. Sleeping from 10 PM to 7 AM. Reports sleep is interrupted. Notes need to urinate 4 times per night. Sleep study scheduled. History of snoring. No naps. Appetite normal. Denies nausea vomiting or diarrhea. Consuming 1 cup of caffeinated coffee daily. Compliant with medications including Latuda 120 mg daily Lamictal 250 mg daily, lithium ER 450 mg twice daily, melatonin, [id number] Benadryl as needed. Denies adverse effects to medications. Mental status exam Alert and oriented . No acute distress. Ambulatory with normal gait and station. Appears stated age. Casually dressed and groomed. Appropriate hygiene. Cooperative with interview. Good eye contact. No psychomotor agitation or retardation. Mood depressed. Affect congruent. Speech is clear and with regular rate and rhythm. Language fluent. Thought process organized. Associations logical. Thought content significant for ruminative anxiety and themes of depression. No suicidal or homicidal ideation related or detected.. No symptoms consistent with psychosis noted or detected. Immediate recent and remote memory grossly intact. Attention and concentration are fair. Estimated intelligence and fund of knowledge average. Judgment and insight are good. Diagnosis Bipolar 2 space F 31.81 PTSD Generalized anxiety disorder Nicotine use disorder Plan Continue IOP with focus on relapse prevention. Patient has experienced recent new stressors. Risks benefits alternatives of medications discussed with patient. Patient acknowledges understanding. Continue Latuda 120 mg p.o. nightly. Continue Lamictal 250 mg p.o. nightly. Continue lithium 450 mg p.o. twice daily. Continue follow-up with [facility] . Encourage smoking cessation. Encouraged ongoing caffeine reduction and abstinence. 18 minutes of Insight oriented psychotherapy provided. Follow up with sleep study as scheduled. Follow-up with individual therapist. Follow-up with DBT skills program when IOP complete. Patient acknowledges understanding and is in agreement with plan. She feels able to maintain safety. She agrees to seek help or emergency care feeling unsafe to self or others.
--- NOTE | 2017-08-24 11:20 | PN_ITS ---
Progress Note Patient seen in follow-up for bipolar 2 space F 31.81, PTSD, generalized anxiety disorder. History is been obtained per interview with patient, discussion with staff, review of chart. Case discussed with treatment team. Chief complaint I have been better and I have been worse. Stressors more than organic depression. Interim history Mild/moderate situational depressive symptoms wax and wane past 3 weeks which she associates with recent stressors. Identifies that her depression is situational and increased compared to 1 month ago. She has moderate ruminative anxiety regarding finances. 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 She is currently job seeking. Discussed her recent use of problem solving skills. No suicidal or homicidal ideation. No symptoms consistent with psychosis. Forward thinking. Plans to volunteer at the [employer]. Sleeping from 10 PM to 7 AM. Reports sleep is interrupted. Notes need to urinate 4 times per night. Sleep study scheduled. History of snoring. No naps. Appetite normal. Denies nausea vomiting or diarrhea. Consuming 1 cup of caffeinated coffee daily. Compliant with medications including Latuda 120 mg daily Lamictal 250 mg daily, lithium ER 450 mg twice daily, melatonin, [id number] Benadryl as needed. Denies adverse effects to medications. Mental status exam Alert and oriented . No acute distress. Ambulatory with normal gait and station. Appears stated age. Casually dressed and groomed. Appropriate hygiene. Cooperative with interview. Good eye contact. No psychomotor agitation or retardation. Mood depressed. Affect congruent. Speech is clear and with regular rate and rhythm. Language fluent. Thought process organized. Associations logical. Thought content significant for ruminative anxiety and themes of depression. No suicidal or homicidal ideation related or detected.. No symptoms consistent with psychosis noted or detected. Immediate recent and remote memory grossly intact. Attention and concentration are fair. Estimated intelligence and fund of knowledge average. Judgment and insight are good. Diagnosis Bipolar 2 space F 31.81 PTSD Generalized anxiety disorder Nicotine use disorder Plan Continue IOP with focus on relapse prevention. Patient has experienced recent new stressors. Risks benefits alternatives of medications discussed with patient. Patient acknowledges understanding. Continue Latuda 120 mg p.o. nightly. Continue Lamictal 250 mg p.o. nightly. Continue lithium 450 mg p.o. twice daily. Continue follow-up with [facility] . Encourage smoking cessation. Encouraged ongoing caffeine reduction and abstinence. 18 minutes of Insight oriented psychotherapy provided. Follow up with sleep study as scheduled. Follow-up with individual therapist. Follow-up with DBT skills program when IOP complete. Patient acknowledges understanding and is in agreement with plan. She feels able to maintain safety. She agrees to seek help or emergency care feeling unsafe to self or others.
--- NOTE | 2017-08-24 12:46 | BH.MDN ---
Multi-Disciplinary Note - Note 45-min Individual Time Started:: 11:35 Date: 08/24/17 Purpose of session/treatment goals addressed:: The purpose of this session was to address client's current stressors and symptoms. Another goal was to complete a decisional balance worksheet to reduce anxiety and help client make an informed choice that will benefit her mental health. Eye Contact:: Fair Motor Activity:: Appropriate Appearance:: Neat Speech:: Appropriate Mood:: Anxious, Dysthymic Affect:: Flat Thoughts:: Linear, No evidence of hallucinations/delusions noted Staff Interventions:: Therapist used active listening and open-ended questions to explore client's current stressors and symptoms. Therapist used a decisional balance worksheet to increase client's awareness of the pros and cons of each of her employment options. Therapist gently challenged client on negative thought patterns and self-sabotaging behaviors. Therapist processed the worksheet with client and helped client explore what is most important to her overall well-being. Therapist helped client rehearse setting boundaries and advocating for herself during job interviews. Client Response:: Client responded well to session, open to doing a decisional balance worksheet. Client shared she is having a hard time deciding what to do for employment. 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 Client reported belief her choice to leave the [employer] is not due to cognitive distortions, client was told her position may be removed next year. 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 Client and therapist discussed boundary setting as client shared if I get offered the job I'll have a hard time saying no. Client rehearsed different ways to set boundaries and advocate for herself at the interview. Risks/Concerns:: Client denies suicidal ideation, plan, and intent as of 08/24/17. Progress Toward Goals/Plan:: Client demonstrating mild progress towards treatment goals as client continues to struggle with emotional regulation and coping with situational stressors. However, client has been progressing with prioritizing self-care and focusing more on the pros and cons rather than taking the first job she is offered. Client to continue IOP to promote mood stability and prevent decompensation. Client to call [facility] to schedule with her outpatient therapist. Time Stopped:: 12:15
--- NOTE | 2017-08-24 14:51 | BH.SGPN ---
Service Group Progress Note - Session Psychotherapy Session #2 Date Open:: 08/24/17 Time Started:: 10:30 Time Stopped:: 11:20 Targeted Problem #:: 1 Type of Group:: Illness Management Goal of Group:: The goal of this session was to increase self-awareness of what is holding them back from moving towards mental wellness and discuss importance of taking action in their treatment. Client Response/Progress/Benefit:: Pt listened to others and shared her thoughts and ideas throughout session. Pt reported she struggles with maintaining the use of her positive skills to help her maintain the change. Pt shared when she reflects on a situation she can identify which skills she could have used, but when in the moment struggles with using her healthy coping strategies. Client identified the things that have too much power over her include: negative thinking, being inactive, low self-esteem, fear of failure, worrying too much about others, minimizing her symptoms, self-doubt, and mind reading. Pt seemed to benefit from increasing self-awareness of the areas that have the most impact on her keeping her from moving forward. Eye Contact:: Fair Motor Activity:: Appropriate Appearance:: Casual Speech:: Appropriate Mood:: Anxious, Dysthymic Affect:: Constricted Thoughts:: Linear, Logical, No evidence of hallucinations/delusions noted Staff Interventions:: Therapist facilitated discussion about what it means to take action in achieving mental health wellness. Therapist led activity in which clients were asked to identify the symptoms and things that they would like to take back control over. Therapist provided support by using active listening.
== END 2017-08-27 23:59 ==
LOC: BHIOP 09:00
PROVIDERS: Family Provider Family Medicine; PCP Family Medicine; Visit Provider Psychiatry & Neurology Psychiatry
DX: F31.81 Bipolar II disorder (principal); F43.10 Post-traumatic stress disorder, unspecified; F41.9 Anxiety disorder, unspecified; F17.210 Nicotine dependence, cigarettes, uncomplicated; Z79.899 Other long term (current) drug therapy
CPT/HCPCS: H0035; 90832; 90834; 90837; 90853

== ENCOUNTER 2017-08-31 09:00 | Outpatient (RCR) | payer MEDICARE, SELFPAY ==
[2017-08-28 00:54] VITALS: PULSE 86; RESP 14
--- NOTE | 2017-08-29 14:49 | BH.COMM ---
Communication Note - Communication with Client Communication Note: Client left a message canceling her scheduled IOP session today due to a job interview. Client reports plan to attend group Sunday08/31/17 which is client's last day.
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
--- NOTE | 2017-08-31 07:44 | BH.AFTERPLAN ---
Aftercare Plan - Demographics Treatment End Date:: 08/31/17 Psychiatrist:: Tati Priest Psychiatrist Office #:: [id number] [facility]/IOP Therapist:: Any Damico Therapist Phone #:: [phone] - Medications Home Medications: Home Medications Levothyroxine [Synthroid] 50 mcg PO DAILY 04/05/16 [place] Carbonate [[place] Carbonate ER] 450 mg PO BID 04/05/16 Hydrochlorothiazide [Hctz] 50 mg PO DAILY 07/28/16 Lamotrigine [Lamictal] 250 mg PO BID 07/28/16 Lurasidone HCl [Latuda] 120 mg PO DAILY 07/13/17 - Plan Details Progress/Aftercare Plan Details:: You have shown great progress with taking time for self-care as you have found it to help reduce depression and anxiety. You have shown progress with weighing the pros and cons before making difficult decisions to help reduce anxiety and increase confidence. You have demonstrated great progress with self-advocacy both with your mental health and with job seeking. You have continued to work on challenging negative thoughts and although there are times when you have speedbumps you have overall been able to reduce rumination and catastrophizing. You have shown progress with identifying positives and reflecting on things you are grateful for to help improve your mood. You have progressed with consistent implementation of healthy coping skills such as meditation, walking, and communicating with supports. Strategies for Success:: 1. Take time to meditate! 2. SELF-CARE!! it's just has important as doing a task for work or being productive another way. 3. Focus on your diet and get exercise! Enjoy the sunshine! 4. Keep it up with the gratitude journal/ keeping track of your daily positives. 5. Be self compassionate! Don't beat yourself up for speedbumbs. 6. Challenge those negative thoughts... they are FAKE NEWS! 7. When making a decision look at the pros and cons, use a decisional balance sheet. 8. It's okay to say no and set boundaries! - Appointments Appointments/Referrals to Other Services:: 1. Thi Still 09/03/17 at 11am- Call to confirm. 2. Psychiatry 6 months out. 3. Check up on lab work in three weeks for blood pressure meds.
--- NOTE | 2017-08-31 08:03 | BH.IGGP_ITS ---
Aftercare Plan - Demographics Treatment End Date:: 08/31/17 Psychiatrist:: Tati Priest Psychiatrist Office #:: [id number] [facility]/IOP Therapist:: Any Damico Therapist Phone #:: [phone] - Medications Home Medications: Home Medications Levothyroxine [Synthroid] 50 mcg PO DAILY 04/05/16 [place] Carbonate [[place] Carbonate ER] 450 mg PO BID 04/05/16 Hydrochlorothiazide [Hctz] 50 mg PO DAILY 07/28/16 Lamotrigine [Lamictal] 250 mg PO BID 07/28/16 Lurasidone HCl [Latuda] 120 mg PO DAILY 07/13/17 - Plan Details Progress/Aftercare Plan Details:: You have shown great progress with taking time for self-care as you have found it to help reduce depression and anxiety. You have shown progress with weighing the pros and cons before making difficult decisions to help reduce anxiety and increase confidence. You have demonstrated great progress with self-advocacy both with your mental health and with job seeking. You have continued to work on challenging negative thoughts and although there are times when you have speedbumps you have overall been able to reduce rumination and catastrophizing. You have shown progress with identifying positives and reflecting on things you are grateful for to help improve your mood. You have progressed with consistent implementation of healthy coping skills such as meditation, walking, and communicating with supports. Strategies for Success:: 1. Take time to meditate! 2. SELF-CARE!! it's just has important as doing a task for work or being productive another way. 3. Focus on your diet and get exercise! Enjoy the sunshine! 4. Keep it up with the gratitude journal/ keeping track of your daily positives. 5. Be self compassionate! Don't beat yourself up for speedbumbs. 6. Challenge those negative thoughts... they are FAKE NEWS! 7. When making a decision look at the pros and cons, use a decisional balance sheet. 8. It's okay to say no and set boundaries! - Appointments Appointments/Referrals to Other Services:: 1. Thi Still 09/03/17 at 11am- Call to confirm. 2. Psychiatry 6 months out. 3. Check up on lab work in three weeks for blood pressure meds.
--- NOTE | 2017-08-31 10:52 | BH.SGPN ---
Service Group Progress Note - Session Psychotherapy Session #1 Date Open:: 18 - 7 group members Time Started:: 09:05 Time Stopped:: 10:10 Targeted Problem #:: 1 Type of Group:: Process Goal of Group:: The goal of today's group was to check-in with client's mood, stressors, and positives, review homework and introduce topic for the day. Client Response/Progress/Benefit:: Client responded well to session, quiet, but receptive to positive statements. Client reports feeling ?groggy? today sharing, ?I know I look depressed, but I?m really just tired.? Client stated she feels bittersweet on her last day of IOP as she recognizes coping with mental health with be a lifelong ?struggle,? but she feels more confident in her thought challenging and reported she has been taking more time for self-care. Client shared she has reduced depressive symptoms and less negative thoughts which demonstrates progress. Client appeared to benefit from receiving supportive statements from peers and reflecting on progress. Eye Contact:: Good Motor Activity:: Appropriate Appearance:: Neat Speech:: Appropriate Mood:: Euthymic, Other - fatigued Affect:: Flat Thoughts:: Linear, No evidence of hallucinations/delusions noted Staff Interventions:: Therapist used open-ended questions to elicit information about client's current stressors and mood state. Therapist was supportive by using active listening and reflection.
== END 2017-08-31 14:00 | disposition home or self-care (01) ==
LOC: BHIOP 09:00
PROVIDERS: Family Provider Family Medicine; PCP Family Medicine; Visit Provider Psychiatry & Neurology Psychiatry
DX: F31.81 Bipolar II disorder (principal); F43.10 Post-traumatic stress disorder, unspecified; F41.9 Anxiety disorder, unspecified; F17.210 Nicotine dependence, cigarettes, uncomplicated; Z79.899 Other long term (current) drug therapy
CPT/HCPCS: H0035; 90853

== ENCOUNTER 2017-09-15 13:11 | Emergency (ER) | payer MEDICARE, SELFPAY ==
[2017-09-15 13:14] VITALS: BP 153/99; PULSE 66; RESP 14; TEMP 37.3; O2SAT 95; BMI 29.0
--- NOTE | 2017-09-15 13:23 | ED.DCSUM_ITS ---
- ER Visit Summary Date of Service: 09/15/17 Chief Complaint: Dental pain History of Present Illness: The patient is a 51 F since to the emergency department dental pain. Patient had symptoms for the past 2-3 days. She states she does not have dental insurance and has not seen a dentist in some time. She denies any injury. She has had increasing pain in her left lower jaw and some swollen nodes in the left side of her neck. She denies any fevers or chills. She has no trouble speaking or swallowing. She denies any specific trauma. Physical Examination: Is relatively unremarkable. Patient has widespread dental disease and prior cavities that have been fixed on the left. She does have a cap over tooth 19 and this is markedly tender to palpation. There is some erythema of the gumline but no focal abscess. Submental space is soft. No trismus. No stridor. No Cade angina. Test Results: [] Emergency Department Course and Treatment: Do suspect the patient has worsening cavity underlying where her cap is. She does not want analgesics. The patient will be started on oral antibiotics. She is given outpatient dental resources. The patient will be discharged home. There is no evidence of Cade angina. There is no evidence of rapid spreading infection. Treatment Plan: [] Disposition: Discharge Impression: Periapical abscess This note was generated with [employer] dictation software. It may contain incorrect words, spelling, and punctuation that were not noted in review of the chart prior to signing ED Disposition - Plan for ED Patient: Chief Complaint: Dental Instructions: ED Cavity Dental Prescriptions: Hydrocodone Bitart/Apap 5-325 [[place] 5MG-325MG] 1 tab PO Q4H PRN PRN 2 Days #6 tab PRN Reason: Pain Amoxicillin 500 mg PO TID #30 tab Referrals: Puma Ramos MD [Primary Care Provider] -
[2017-09-15] MEDS: AMOXICILLIN 500 MG CAPSULE PO (13:25)
[2017-09-15 13:28] VITALS: BP 159/75; PULSE 82; RESP 16; O2SAT 98
== END 2017-09-15 13:30 | disposition home or self-care (01) ==
LOC: ED 13:27
PROVIDERS: Emergency Provider Emergency Medicine; Family Provider Family Medicine; PCP Family Medicine
DX: K04.7 Periapical abscess without sinus (principal); K02.9 Dental caries, unspecified; Z72.0 Tobacco use
CPT/HCPCS: 99282

== ENCOUNTER → 2017-12-05 09:40 | Outpatient (CLI) | payer MEDICARE, SELFPAY ==
[2017-12-05 12:53] LABS: Hemoglobin A1c 5.1 % (4.2-6.3)
== END ==
PROVIDERS: Family Provider Family Medicine; PCP Family Medicine; Visit Provider Family Medicine
DX: Z79.899 Other long term (current) drug therapy (principal)
CPT/HCPCS: 83036

== ENCOUNTER → 2018-02-21 11:55 | Outpatient (CLI) | payer MEDICARE, SELFPAY ==
[2018-02-21 13:12] LABS: Hemoglobin A1c 5.2 % (4.2-6.3)
== END ==
PROVIDERS: Family Provider Family Medicine; PCP Family Medicine; Referring Provider Family Medicine; Visit Provider Family Medicine
DX: Z79.899 Other long term (current) drug therapy (principal)
CPT/HCPCS: 83036

== ENCOUNTER 2019-06-12 06:01 | Emergency (ER) | payer MEDICARE, SELFPAY ==
[2019-06-12 06:08] VITALS: BP 151/93; PULSE 68; RESP 16; TEMP 36.8; O2SAT 96; BMI 28.6
--- NOTE | 2019-06-12 06:28 | ED.VIS.GEN ---
History of Present Illness Chief Complaint: Ear Problem Informant: Patient Narrative: States since yesterday she noted she has significant pain when she moves her ear. She has not taken anything for other than one Tylenol dose. She has had this remotely in the past. She went to urgent care and they told her she had TMJ. Current severity is moderate. Worse by pulling her ear. - Past Medical History (1) Ataxia Status: Acute (2) Tremor Status: Acute (3) AVM (arteriovenous malformation) brain Status: Chronic (4) Bipolar disease, chronic Status: Chronic (5) Restless legs Status: Chronic Past Medical History - Allergies and Home Meds Allergies/Adverse Reactions: Allergies No Known Allergies Allergy (Verified 06/12/19 06:03) Primary Care Physician: Anyi Woods NP-C [Primary Care Provider] - Prior records reviewed: Yes Past Medical History: - - See problem list Surgical History: cholecystectomy, hysterectomy, tonsillectomy, - - carpal tunnel Lives: With Family Smoking Status: Former smoker Alcohol: None Drugs: None - Family History Maternal Family History: Reports: - - alzheimers Paternal Family History: Reports: Cancer, Heart Disease Review of Systems General: Denies: Chills, Fever, Sweats Eyes: Denies: Visual changes - bilaterally, Diplopia ENT: Reports: Right ear pain. Denies: Rhinorrhea, Sore throat Cardiovascular: Denies: Chest pain, Palpitations Respiratory: Denies: Dyspnea, Cough, Dyspnea on exertion Gastrointestinal: Denies: Abdominal pain, Nausea, Vomiting, Diarrhea, Melena, Hematochezia Genitourinary: Denies: Dysuria, Hematuria, Frequency Musculoskeletal: Denies: Back pain, Extremity Pain Skin: Denies: Rash, Wounds Neurological: Denies: Headache, Weakness, Numbness Physical Exam Vital Signs/Narrative: Vital Signs Temp Pulse Resp BP Pulse Ox 06/12/19 06:08 98.2 F 68 16 151/93 H 96 General: Well nourished, Well developed, No Acute Distress Head: Normocephalic, Atraumatic Eyes: Perrl, EOMI ENT: Moist mucous membranes, No rhinorrhea, TM's clear, - - Positive right canal erythema with pain with moving the tragus and auricle. There is no evidence of mastoiditis. TMJ normal Neck: Supple, Nontender Cardiovascular: Regular rate, Regular rhythm, No murmurs Respiratory: No distress, CTA bilaterally, Chest nontender Abdomen: Soft, Nontender, Nondistended, Normal bowel sounds Back: Nontender, Normal Inspection Extremities: Nontender, No edema Skin: Normal color, No rash Neurological: Alert, Oriented x3, Cranial nerves II-XII grossly intact, Normal Strength, Normal Sensation Psychological: Normal affect, Normal Mood Diagnostic/Tx/Re-eval - Medical Decision Making Patient has otitis externa. Given Cortisporin otic solution ibuprofen will follow-up as an outpatient. She will use this 4 times a day for a week ED Disposition - Plan for ED Patient: Disposition: Home or Assisted Living Diagnosis: Otitis externa Instructions: EXTERNAL EAR INFECTION (Adult) Referrals: Anyi Woods NP-C [Primary Care Provider] -
[2019-06-12] MEDS: Neomycin Sulfate/Polymyxin/Hc Susp 10 ML Bottle 4 DRP OTIC (06:32)
[2019-06-12] MEDS: Ibuprofen 600 MG Tablet PO (06:32)
== END 2019-06-12 06:36 | disposition home or self-care (01) ==
LOC: ED 06:33
PROVIDERS: Emergency Provider Emergency Medicine; PCP Registered Nurse
DX: H60.91 Unspecified otitis externa, right ear (principal); F31.9 Bipolar disorder, unspecified; R25.1 Tremor, unspecified; R27.0 Ataxia, unspecified; Z79.899 Other long term (current) drug therapy
CPT/HCPCS: 99283

== ENCOUNTER → 2020-02-10 | Outpatient (CLI) | payer MEDICARE, SELFPAY | END | disposition home or self-care (01) | LOC: MTDU 10:27 | PROVIDERS: PCP Registered Nurse; Referring Provider Nurse Practitioner Primary Care; Visit Provider Nurse Practitioner Primary Care | DX: Z03.818 Encounter for observation for suspected exposure to other biological agents ruled out (principal) | CPT/HCPCS: 87635; C9803; U0003 ==

== ENCOUNTER → 2020-03-16 14:51 | Outpatient (CLI) | payer MEDICARE, SELFPAY ==
--- NOTE | 2020-03-16 14:54 | MRI_ITS ---
STUDY: MRI BRAIN WITH AND WITHOUT CONTRAST REASON FOR EXAM: Female, 54 years old. Right facial pain, RIGHT ear ache x 1 year TECHNIQUE: Standardized multiplanar fat and water weighted pulse sequences were obtained. 17ml Dotarem via IV was administered for the contrast portion of the examination. COMPARISON: MRI brain 04/05/2016 FINDINGS: Normal size of the ventricles and extra-axial spaces for the patient''s age. Normal white matter tracts of the supratentorial brain. Normal bilateral basal ganglia. Normal thalami. There is no extra-axial fluid accumulation. Normal flow voids within the major intracranial circulation suggesting patency by spin echo criteria. Normal venous enhancement. There is no enhancing intra-axial or extra-axial abnormality. Normal sella turcica, pituitary gland, infundibular stalk, optic chiasm and hypothalamus. Normal tectal plate and pineal gland. Normal midbrain, marciano and medulla. Partial rim calcified lesion in the right dentate nucleus unchanged in size since prior exam. Normal basal cisterns. Normal bilateral temporal bones. Normal bilateral internal auditory canals. No demonstrated orbital abnormality, within the constraints of a routine brain study. Normal visualized paranasal sinuses. Normal calvarium and skull base. Normal visualized soft tissue structures. Normal visualized upper cervical spine. MRI/Brain W/WO Contrast IMPRESSION: Partially calcified lesion in the right dentate nucleus unchanged since previous study. Otherwise normal unenhanced and enhanced MRI of the brain. Electronically Signed: Rakesh Huang MD at 18:42 EST , Service support ,
--- NOTE | 2020-03-16 14:59 | CT_ITS ---
STUDY: CT MAXILLOFACIAL SINUSES REASON FOR EXAM: Female, 54 years old. SINUSITIS, RT ABSCESS NEAR TMJ, JAW PAIN X 1 YR. RADIATION DOSAGE (If Supplied By Facility): CTDIvol = ( 29.38 ) mGy, DLP = ( 569.49 ) mGycm TECHNIQUE: The patient was scanned in a multi detector CT scanner. High resolution axial imaging was performed without the administration of intravenous contrast material. Sagittal and coronal images were reconstructed. Individualized dose optimization techniques were used for this CT. COMPARISON: None. FINDINGS: FRONTAL SINUSES: Normal aeration, without mucosal inflammatory disease. ETHMOIDAL SINUSES: Normal aeration, without mucosal inflammatory disease. MAXILLARY SINUSES: Normal aeration, without mucosal inflammatory disease. SPHENOIDAL SINUSES: Normal aeration, without mucosal inflammatory disease. There is patency of the bilateral maxillary infundibuli with normal uncinate processes, ethmoid bullae, and hiatus semilunaris. Normal bilateral middle turbinates. Normal bilateral inferior turbinates. Normal midline nasal septum. There is patency of the bilateral nasal airways. The visualized osseous structures are normal. The visualized bilateral orbital contents are normal. CT/Sinus/Facial Bone IMPRESSION: Normal CT examination of the maxillofacial sinuses. Electronically Signed: Kamar Bocanegra MD at 15:48 EST Tel , Service support ,
[2020-03-16 17:06] LABS: CREATININE FINGERSTICK 0.6 mg/dL (0.55-1.02); EGFR FINGERSTICK > 60.0000 mL/min (>60)
== END ==
PROVIDERS: PCP Registered Nurse; Referring Provider Psychiatry & Neurology Neurology; Visit Provider Psychiatry & Neurology Neurology
DX: J32.0 Chronic maxillary sinusitis (principal); G50.0 Trigeminal neuralgia
CPT/HCPCS: 70486; 70553; A9575

== ENCOUNTER 2021-12-27 09:00 | Outpatient (RCR) | payer MEDICARE, SELFPAY ==
--- NOTE | 2021-12-27 09:00 | BH.SGPN.GN ---
Behaviors/Verbalizations/Mental Status: [] Eye contact is good. Motor activity is appropriate. Appearance is casual. Speech is Appropriate. Mood is depressed. Affect is flat. Thoughts are linear and logical. No evidence of psychosis. Reviewed daily check in sheet and no reports of suicidal ideations or intent. Client Response/Progress/Benefit: [] Pt participated at times during the group discussion. Attentive. Today was pt?s first day in IOP and she briefly introduced herself to the group. Shared that she had completed this IOP several years ago and ?it was very helpful? which made her reach out when her depression was worsening lately. ? I?ve been decompensating and I?m trying to be proactive and get help before it gets bad?. She has maintained with outpatient psychiatry and counseling however needed ? a little more?. No progress noted as this was her first day in IOP. Benefited from group support, encouragement, and feedback. Will continue in IOP to prevent decompensation, provide support, and increase healthy coping skills. Narrative Note: []
--- NOTE | 2021-12-27 10:50 | BH.SGPN.GN ---
Behaviors/Verbalizations/Mental Status: [] Client alert and oriented, casually dressed and groomed. Eye contact good. Motor activity appropriate. Speech within normal limits. Affect congruent, mood euthymic. Thoughts linear, logical, no signs of hallucinations or delusions. Client Response/Progress/Benefit: [] Client's first day in IOP program. Client responded well to session, contributing to discussion and engaged during the activity. Group identified the benefits of change which included: personal growth, improving mental health, experiencing more, and better relationships. Worked with the group to identify barriers to change, which included: uncomfortable emotions such as anxiety and depression, lack of motivation, lack of energy, and confidence. Client participated along with group in activity where they identified and discussed the emotions related to change. Client participated in discussion on the change process and personal experiences with implementing change in past. Benefited from increased awareness and understanding of emotions, benefits, and barriers related to change. Will continue IOP tx to continue to combat distortions that reinforce low self-esteem, anxiety, and depression and prevent decompensation. Narrative Note: []
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
[2021-12-28 09:07] VITALS: BP 121/82; PULSE 71
--- NOTE | 2021-12-28 10:10 | BH.SGPN.GN ---
Behaviors/Verbalizations/Mental Status: [] Eye contact is good. Motor activity is appropriate. Appearance is casual. Speech is Appropriate. Mood is depressed. Affect is flat. Thoughts are linear and logical. No evidence of psychosis. Client Response/Progress/Benefit: [] Pt was a active participant in group discussions. Attentive during psychoeducation. Along with peers pt participated in interactive discussions in which group defined self-care, discussed the benefits to self-care, and identified common myths surrounding self-care which included; self-care is selfish, self-care is self-indulgent, self-care is just personal hygiene, self-care should be fun, self-care is too time consuming, I don?t deserve it, self-care means I?m not being productive. Pt and peers broke into smaller group and worked together to bust the myths associated with self-care. Benefited from increased awareness of the self-care and its benefits. Will continue in IOP to maintain safety, prevent decompensation, increase healthy coping, and improve functioning. Narrative Note: []
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
--- NOTE | 2021-12-28 12:29 | BH.DR.ITP ---
Initial Treatment Plan Patient Information Visit Information: ADMISSION DATE: EXPECTED LOS: 4-6 weeks Problems/Symptoms Problem #1:: Depression Symptom:: Sadness, worthlessness, hopelessness isolation, anhedonia, biological disruption of sleep, low energy, decreased concentration, guilt, passive thoughts of Problem #2:: Anxiety Symptom:: Worry, rumination
--- NOTE | 2021-12-28 19:44 | BH.MTP ---
Master Treatment Plan - Patient Information Program Physician:: Dr. Pérez Primary Therapist:: Asmita March, [facility] - Psychiatric Diagnoses Psychiatric Diagnoses:: 1. Bipolar 2 disorder (most recent episode depressed) F31.81. 2. Generalized anxiety disorder. 3. History of PTSD Diagnosis Code(s):: F31.81 - Estimated LOS Estimated LOS (in weeks):: 6 Problem/Goal #1 - Problem/Goal #1 Stated Goal:: Client will reduce depression and hopelessness due to Bipolar Disorder through IOP Services. Description of Barriers: Client's negative thinking, distorted thoughts, low motivation, anhedonia, and apathy are potential barriers to treatment. Functional Impact: The patient has history of anxiety, bipolar 2 disorder and PTSD who was referred to the [facility] IOP program by her outpatient therapist for worsening symptoms of depression and anxiety. The patient's therapist reports minimal improvement of the patient's symptoms in the last 4 months with traditional outpatient services. She feels this episode of worsening depression may have been caused by a very stressful job she had all summer. Her energy level is low and her concentration is decreased. She admits to passive thoughts of of every once in a while. - Objectives Objective #1 Stated Objective: Client will learn and utilize 2-3 healthy coping strategies to manage depressive symptoms as shown by reduced DSM-5 cross-cutting symptom measure score. Interventions: Therapist will utilize CBT techniques to assist client with understanding the connection between thoughts, feelings and behaviors. Education will be provided on behavioral activation. Therapist will assist client in learning internal coping strategies to manage depressive symptoms, along with helping client identify triggers. Discharge Criteria: Client will have achieved this goal when can verbalize and has practiced at least 2 healthy coping strategies and pt?s score on the DSM 5 cross cutting measure for depression has been decreased and per pt?s report daily functioning has improved. Target Date: 02/01/22 Review Date: 01/18/22 Objective #2 Stated Objective: Client will identify and replace 2-3 negative thinking patterns that reinforce depressive symptoms. Interventions: Therapist will assist client in developing an awareness of the cognitive messages that reinforce depressive thinking.? Therapist will also assist client in challenging negative thinking patterns.? Discharge Criteria: Client will have achieved this goal when can identify at least 2 negative thinking patterns, replace negative thinking with more positive, affirmative messages. Target Date: 02/01/22 Review Date: 01/18/22 Problem/Goal #2 - Problem/Goal #2 Stated Goal:: Stabilize anxiety level while increasing ability to function on a daily basis. Description of Barriers: Client's negative thinking, distorted thoughts, low motivation, anhedonia, and apathy are potential barriers to treatment. Functional Impact: The patient has history of anxiety, bipolar 2 disorder and PTSD who was referred to the [facility] IOP program by her outpatient therapist for worsening symptoms of depression and anxiety. The patient's therapist reports minimal improvement of the patient's symptoms in the last 4 months with traditional outpatient services. She feels this episode of worsening depression may have been caused by a very stressful job she had all summer. Her energy level is low and her concentration is decreased. She admits to passive thoughts of of every once in a while. - Objectives Objective #1 Stated Objective: Client will learn and implement 2-3 calming skills to reduce overall anxiety and manage anxiety. Interventions: Therapist and group sessions will help client identify physiological warning signs of anxiety, increase awareness of thoughts that increase anxiety, and identify behaviors that reinforce anxious symptoms. Group and individual counseling will teach client calming skills to help manage anxious symptoms. Discharge Criteria: Client will have achieved this goal when can verbalize at least 2 calming skills and reports skills successfully help reduce anxious symptoms. Target Date: 02/01/22 Review Date: 01/18/22 Objective #2 Stated Objective: Pt will decrease anxious symptoms AEB pt?s score on the DSM 5 cross-cutting measure improve pt?s daily functioning. Interventions: Through groups and individual therapy, pt will be provided education about anxiety?s impact on body and common physiological reaction to anxiety. Therapist will teach pt appropriate breathing techniques and build healthy coping skills to manage daily anxieties. Discharge Criteria: Pt will have met this goal when pt?s score on the DSM 5 cross cutting measure for anxiety has been decreased and per pt?s report daily functioning has improved. Target Date: 02/01/22 Review Date: 01/18/22
== END 2021-12-28 23:59 ==
LOC: BHIOP 09:00
PROVIDERS: PCP Registered Nurse; Referring Provider Psychiatry & Neurology Psychiatry; Visit Provider Psychiatry & Neurology Psychiatry
DX: F31.81 Bipolar II disorder (principal); F41.1 Generalized anxiety disorder; F43.10 Post-traumatic stress disorder, unspecified; I12.9 Hypertensive chronic kidney disease with stage 1 through stage 4 chronic kidney disease, or unspecified chronic kidney disease; N18.9 Chronic kidney disease, unspecified; Z79.899 Other long term (current) drug therapy; Z87.891 Personal history of nicotine dependence; E03.9 Hypothyroidism, unspecified
CPT/HCPCS: S9480; 90853

== ENCOUNTER 2021-12-29 07:45 | Outpatient (RCR) | payer MEDICARE, SELFPAY ==
[2021-12-29 00:51] VITALS: BP 121/82; PULSE 71
--- NOTE | 2021-12-29 14:29 | BH.MDN ---
Multi-Disciplinary Note - Note 45-min Individual Time Started:: 09:15 Date: 12/29/21 Purpose of session/treatment goals addressed:: Purpose of session was to address goals 1 and 2 from MTP. Eye Contact:: Fair Motor Activity:: Appropriate Appearance:: Casual Speech:: Appropriate Mood:: Depressed Affect:: Constricted Thoughts:: Linear, Logical, No evidence of hallucinations/delusions noted Staff Interventions:: thought challenging, CBT techniques, rapport building, strengths perspective, goal setting Client Response:: Client reported she decided to come back to IOP because she noticed her depression to return. Client stated she stopped doing her makeup, not hiking, decrease in energy, decrease in motivation, and increased negative thinking. 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 Client reported she thinks this impacted her mental health because it was physically demanding and emotionally exhausting. Client reported additional trigger to depressed mood is finding out several of her best friends plan to move in the upcoming months. Client stated this triggered feelings of loneliness. Client hasn't been in a relationship for over a year. Stated she hasn't had any luck with finding anyone in the area that she connects with thus far. Reported additional stressor is money issues. Stated she got herself into some financial difficulties with impulsive spending. Reported she now attends [employer]. Stated in August 2021 had to set up a payment plan to pay off her debt which now puts her in a tight budget every month for the next 2 years. Reported wants to make sure she refrains from any impulsive spending while in IOP. Client stated she would like to get back to walking, socializing and using her healthy skills more consistently. Risks/Concerns:: denies suicidal ideation, plan or intention to date. future focused. Progress Toward Goals/Plan:: No progress observed given second day in IOP. Session focused on identifying current stressors and symptoms. Reviewed skills that have helped client in the past. Client set goal to get back to walking/hiking and to attend [employer] to increase socialization. Client to continue IOP to decrease depression, increase use of healthy coping skills, and prevent decompensation. Time Stopped:: 10:00
--- NOTE | 2022-01-03 10:05 | BH.SGPN.GN ---
Behaviors/Verbalizations/Mental Status: [] Client alert and oriented, neatly dressed and groomed. Eye contact good. Motor activity appropriate. Speech within normal limits. Affect congruent, mood euthymic. Thoughts linear, logical, no signs of hallucinations or delusions. Client Response/Progress/Benefit: [] Client was an active participant in group discussions. Attentive during psychoeducation on 4 types of conflict styles (Competing, Collaborating, Avoiding, and Accommodating). Worked with group to define conflict and identify how conflict is helpful. With peers identified barriers to addressing or managing conflict which included: fear of upsetting others, avoidance, high emotions, and poor communication. Client believes she uses the accommodating style the most indicating she is a people pleaser. Client shared this style leads to client feeling like her needs are not met. Benefited from group due to increase insight and awareness of benefits to conflict, conflict styles, and obstacles to managing conflict. Will continue in IOP to prevent decompensation, gain healthier core beliefs, and increase self-esteem. Narrative Note: []
--- NOTE | 2022-01-03 11:05 | BH.SGPN.GN ---
Behaviors/Verbalizations/Mental Status: [] Client alert and oriented, neatly dressed and groomed. Eye contact good. Motor activity appropriate. Speech within normal limits. Affect congruent, mood euthymic. Thoughts linear, logical, no signs of hallucinations or delusions. Client Response/Progress/Benefit: [] Client engaged in session AEB contributing to discussion and engaging in activity. Client did well to review current conflict style and its impact on mental health. Attentive during discussion on strategies for more effectively managing conflict in personal life. Client participated in activity and did well to be assertive and collaborating. Client given handout on fair fighting rules. Client indicated that she was going to express feelings with words and utilize I statements. Appeared to benefit from gaining strategies to help client better manage conflict. Will continue IOP tx to reduce negative thinking patterns, increase overall functioning, and increase self worth. Narrative Note: []
--- NOTE | 2022-01-05 09:05 | BH.SGPN.GN ---
Behaviors/Verbalizations/Mental Status: [] Client alert and oriented, casually dressed and groomed. Eye contact good. Motor activity appropriate. Speech within normal limits. Affect congruent, mood anxious. Thoughts linear, logical, no signs of hallucinations or delusions. Reviewed client?s symptom tracker, no risk for suicidal ideation, plan, or intent as of 01/05/22 Client Response/Progress/Benefit: [] Client responded well to group by actively participating throughout group and providing in put and validation to other group members. Reported that her emotion today was anxious. Client gave examples that she felt increased stress financially with not getting paid for a whole month, but also ashamed of herself for not budgeting since she knew that this was going to happen. Client shared attempts to set more boundaries, especially with her daughter, but having a difficult time with getting the response she would like back. Client seemed to benefit from feedback from group members and encouragement.She will continue IOP tx to increase coping skills, reduced symtoms of anxiety, and increase overall functioning. Narrative Note: []
--- NOTE | 2022-01-05 10:10 | BH.SGPN.GN ---
Behaviors/Verbalizations/Mental Status: [] Client alert and oriented, casually dressed and groomed. Eye contact good. Motor activity appropriate. Speech within normal limits. Affect congruent, mood euthymic and anxious. Thoughts linear, logical, no signs of hallucinations or delusions. Client Response/Progress/Benefit: [] Client responded well to session, contributing to discussion and engaged during the activity. Attentive during discussion with connecting to quote and discussed that worries has prevented her from taking action in the past. Group identified the things that keep them stuck and prevent change that included: lack of supports, relying on other's opinions of us, and fear of failure. Client identified things she want's to get rid of and take control in her life are fear of rejection, negative self talk, and low expectations. Client shared that if these things were gone she would have healthier relationships. Client reported she started changes so far by setting boundaries. Benefited from increased awareness and understanding of emotions, benefits, and barriers related to change. Will continue IOP tx to continue to increase self worth, gain healthy coping skills, and increase overall functioning. Narrative Note: []
--- NOTE | 2022-01-05 15:30 | BH.MDN ---
Multi-Disciplinary Note - Note 45-min Individual Time Started:: 11:45 Date: 01/05/22 Time Stopped:: 12:30
--- NOTE | 2022-01-10 09:05 | BH.SGPN.GN ---
Behaviors/Verbalizations/Mental Status: [] Eye contact is good. Motor activity is appropriate. Appearance is casual. Speech is Appropriate. Mood is depressed. Affect is flat. Thoughts are linear and logical. No evidence of psychosis. Reviewed daily check in sheet and no reports of suicidal ideations or intent. Client Response/Progress/Benefit: [] Pt participated at times during the group discussion. Attentive. Daily symptom tracker notes 07/02 for anxiety and depression. Mental health win was ?asking for help?. Other wins include setting boundaries and assertive communication with support. Shared some stressors with support. Emotion for today is ?anxious?. Benefited from group support, encouragement, and feedback. Will continue in IOP to prevent decompensation, increase healthy coping, and increase healthy coping. Narrative Note: []
--- NOTE | 2022-01-10 10:05 | BH.SGPN.GN ---
Behaviors/Verbalizations/Mental Status: [ ] Client alert and oriented, neatly dressed and groomed. Eye contact good. Motor activity appropriate. Speech within normal limits. Affect congruent, mood anxious and euthymic. Thoughts linear, logical, no signs of hallucinations or delusions. Client Response/Progress/Benefit: [ ] Client connected with topic of Anxiety and participated throughout, providing input and taking notes. Attentive during psychoeducation on different anxiety disorders and participated throughout interactive discussion defining anxiety and identifying cognitive and physiological symptoms of anxiety. Client asked questions and gave insight to group on the differences she notices when she is experiencing stress vs anxiety. Common cognitive symptoms identified by group included: ?what if thoughts?, all or nothing thinking, and predicting the future type thoughts. Physiological symptoms reported by patient included: insomnia, racing thoughts, body tension, and increased heart rate. Benefited from increased awareness and insight on anxiety and its impact. Will continue IOP tx to increase use of coping skills, increase self worth and improve overall functioning. Narrative Note: []
--- NOTE | 2022-01-10 11:05 | BH.SGPN.GN ---
Behaviors/Verbalizations/Mental Status: [] Client alert and oriented, casually dressed and neatly groomed. Eye contact good. Motor activity appropriate. Speech within normal limits. Affect congruent, mood euthymic, Thoughts linear, logical, no signs of hallucinations or delusions. Client Response/Progress/Benefit: [] Client was an active participant in group discussion and providing good insight to peers. Reviewed safety behaviors she engages in that reinforce anxiety. Attentive during psychoeducation on mindfulness coping skills and their impact on mental health wellness. The group worked together to brainstorm anxiety reduction strategies. Client shared menu of relaxation strategies she will utilize which included walking in nature with touching nature and aromatherapy. Client seemed to benefit from increased repertoire of anxiety reduction skills. Client will continue IOP tx to increase self worth, identify and change cognitive distortions, and gain healthy coping skills. Narrative Note: []
--- NOTE | 2022-01-12 09:05 | BH.SGPN.GN ---
Behaviors/Verbalizations/Mental Status: [] Eye contact is good. Motor activity is appropriate. Appearance is casual. Speech is Appropriate. Mood is euthymic. Affect is full. Thoughts are linear and logical. No evidence of psychosis. Reviewed daily check in sheet and no reports of suicidal ideations or intent. Client Response/Progress/Benefit: [] Pt was an active participant in group discussion. Attentive. Daily symptom tracker notes 09/01 for anxiety and /5 for depression. Emotion for today is distressed. Mental health win included completing self-care yesterday. She talked at length regarding a stressor at work which is causing her to feel overwhelmed, exhausted, and ineffective. Group provided feedback and support. Pt reports that she completed assertive communication with her boss and will continue to do so. Feedback on continuing to be assertive and to re-evaluate if she had placed unrealistic expectations on herself which is causing the stress-inducing situation to worsen. Benefited from group support, encouragement, and feedback. Will continue in IOP to prevent decompensation, stabilize mood, and increase healthy coping. Narrative Note: []
--- NOTE | 2022-01-12 10:15 | BH.SGPN.GN ---
Behaviors/Verbalizations/Mental Status: []Pt alert and oriented, casually dressed and groomed. Eye contact good. Motor activity appropriate. Speech within normal limits. Affect constricted, mood stressed. Thoughts linear, logical, no signs of hallucinations or delusions. Client Response/Progress/Benefit: []Pt responded well to session AEB contributing to discussion, taking notes, and listening attentively to others. Group discussed the benefits of managed anger and anger as a secondary emotion. Pt shared perspective on negatives from acting out in anger as stress and more mental health issues.? Pt completed anger iceberg worksheet, reporting outward personal signs of anger as shutting down and more depressed. Identified underlying emotions that contribute to anger including guilt, hurt, and stress. ?Appeared to benefit from increased knowledge of the underlying emotions that impact anger and increased self-awareness of the internal and external consequences of anger. Will continue IOP tx to reduce negative thinking, improve self-confidence, and increase mood stability. Narrative Note: []
--- NOTE | 2022-01-12 14:31 | BH.MDN ---
Multi-Disciplinary Note - Note 30-min Individual Time Started:: 12:05 Date: 01/12/22 Time Stopped:: 12:35
--- NOTE | 2022-01-17 11:02 | BH.SGPN.GN ---
Behaviors/Verbalizations/Mental Status: []Client alert and oriented, casually dressed and groomed. Eye contact good. Motor activity appropriate. Speech within normal limits. Affect congruent, mood euthymic and anxious. Thoughts linear, logical, no signs of hallucinations or delusions. Client Response/Progress/Benefit: []Client responded well to session AEB completing the resilience worksheet provided. Client participated in the discussion of how each resiliency component can help increase personal resiliency and worked cooperatively with group to identify strategies to enhance each of the components discussed. Client reported she feels she is doing well with the resilience traits of ?self-awareness?. Client stated she would like to continue to develop resilience trait of ?take care of yourself? by holding herself more accountable in following through with personal diet and exercise goals. Client seemed to benefit from discussing strategies for improving personal resilience and identifying resilience traits client already possesses. Progress noted in improved use of thought challenge skills. Will continue IOP tx to prevent decompensation, continue to promote use of healthy coping skills, and increase emotion regulation. Narrative Note: []
--- NOTE | 2022-01-18 13:46 | BH.MTP_ITS ---
Treatment Plan Review Date of Admission:: 12/27/21 Date of Treatment Plan Review:: 01/16/22 Admitting Diagnoses:: 1. Bipolar 2 disorder (most recent episode depressed) F31.81. 2. Generalized anxiety disorder. 3. History of PTSD Current Diagnoses:: 1. Bipolar 2 disorder (most recent episode depressed) F31.81. 2. Generalized anxiety disorder. 3. History of PTSD Patient's Response to Treatment:: Pt responding well to treatment AEB pt co nsistently attending IOP sessions, contributing to group discussions, and putting forth effort to apply skills outside treatment. Status of Current Problems and Symptoms: Ongoing problems. Pt's mood tends to be directly impacted by her current life circumstances. Pt recently reporting more anxiety due to some stress with her job and has had some interpersonal issues with youngest daughter. Pt had been able to work through the issues by using assertive communication, but those situations did increase negative thought patterns and anxiety. Problem #1 Problem Name:: Mood Instability Status of Goals:: Obj 1 - partially met. Pt is able to identify healthy coping skills like opposite action, changing environment, and socialization. Per pt's DSM 5 at review her scores indicate a 40% reduction in depressed symptoms compared to intake scores. Obj 2 - partially met, ongoing work encouraged. Pt is able to identify distorted thought patterns, however does struggle with independently challenging thoughts. Team Recommendations:: Team recommends pt continue to work on in the moment coping strategies, challenging perspective, and continued focus on consistent use of skills outside treatment environment. Problem #2 Problem Name:: Anxiety Status of Goals:: Obj 1 - not met. Pt is able to identify calming skills like belly breathing, grounding tools, and meditation. However, pt struggles with use of skills consistently. Obj 2 - not met. Per pt's DSM 5 scores at review scores indicate a 12% increase in anxiety compared to her intake scores. This could be attributed to recent medical issues and psychosocial stressors. Team Recommendations:: Team recommends pt continue to work on in the moment coping strategies and continued focus on consistent use of skills outside treatment environment.
--- NOTE | 2022-01-19 10:10 | BH.SGPN.GN ---
Behaviors/Verbalizations/Mental Status: []Pt alert and oriented, casually dressed and groomed. Eye contact good. Motor activity appropriate. Speech within normal limits. Affect flat, mood dysthymic. Thoughts linear, logical, no signs of hallucinations or delusions. Client Response/Progress/Benefit: []Pt responded well to session AEB taking notes throughout and listening attentively to others. Pt was attentive throughout group activity identifying famous individuals and how they overcame failure to be successful. Pt helped group identify how fear of failure can impact mental health and relationships. Pt personally identified it leads to a lot of avoidance. Pt participated in experiential activity and struggled with memory which impacted pt?s outlook, but pt asked for help. Appeared to benefit from increased knowledge of fear of failure. ?Will continue IOP tx to prevent decompensation, challenge all or nothing thinking, and increase mood stability. ? Narrative Note: []
--- NOTE | 2022-01-19 10:29 | BH.MDN_ITS ---
Multi-Disciplinary Note - Note 45-min Individual Time Started:: 09:04 Date: 01/19/22 Purpose of session/treatment goals addressed:: Purpose of session was to address treatment goals 1 and 2 from MTP. Eye Contact:: Fair Motor Activity:: Restless Appearance:: Casual Speech:: Appropriate Mood:: Depressed Affect:: Constricted Thoughts:: Linear, Logical, No evidence of hallucinations/delusions noted Staff Interventions:: thought challenging, CBT techniques, strengths perspective, goal setting, taught coping skills Client Response:: Client stated feeling crummy this morning because of a disagreement she is having with a good friend. Client elaborated two days ago in a texting stream her friend became upset with client's comments and proceeding to blame client as being the one to upset their mutual friend. Client stated the friend ended the conversation via text and hasn't responded to client in two days. Client reported this squabble has negatively impacted her mood for the last couple of days. With assistance from therapist client connected she is making several assumptions about how her friend is thinking and personalizing friends behavior. Client agreed she didn't have any evidence to support some of her negative thoughts. Seemed to benefit from assistance with thought challenge in the moment. Client stated she has decided to give her friend a week to cool down and if friend doesn't reach out then client will make that effort. Client reported she has been friends with this person for 15 years and hopes a little disagreement isn't the cause of ending a good friendship. Client agreed it would be helpful to identify things she can do to help improve her mood and get her mind off of the disagreement. Client reported she did go hiking earlier this week which she reported was very helpful. Client stated she plans to either go hiking or take walks as ways to help her cope. Client reported she has several social outings planned on Sunday which she believes will be healthy distractions. Client initially hesitant about practicing thought challenge but agreed it would be helpful. Stated she will write out her thoughts when struggling then go back to the writing when feeling calm so she can challenge any distorted/negative thoughts. Risks/Concerns:: denies suicidal ideation, plan or intention to date. future focused. Progress Toward Goals/Plan:: Progress variable, often dependent on life circumstances and stressors. Relationship issues continue to be significant trigger to depressed mood. Progress can be noted with client advocating for needs at her job, following through with goal of going on a hike, reengaging in zoroastrianism events and receptive to thought challenge. Client to continue IOP to increase consistent use of healthy coping, challenge negative thinking and prevent decompensation. Time Stopped:: 09:50
--- NOTE | 2022-01-19 11:10 | BH.SGPN.GN ---
Behaviors/Verbalizations/Mental Status: []Pt alert and oriented, casually dressed and groomed. Eye contact good. Motor activity appropriate. Speech within normal limits. Affect constricted, mood stressed. Thoughts linear, logical, no signs of hallucinations or delusions. Client Response/Progress/Benefit: []Pt responded well to session, engaged in the experiential activity and attentive throughout group processing. Pt reported fear of failure has kept pt from trying challenging mental tasks and saving money. Pt completed fear of failure worksheet and was able to identify thoughts and behaviors that reinforce personal fear of failure including putting too much value on what others think, fear of rejection, and ?half-assing.? Pt participated in small group discussion regarding strategies to overcome fear of failure. Identified wanting to work on asking others for help even when she is afraid of what they will think. Appeared to benefit from increased knowledge of strategies to combat fear of failure and gaining self-awareness. Pt will continue IOP tx to reduce negative thinking patterns, improve self-compassion, and reduce depressive symptoms. Narrative Note: []
--- NOTE | 2022-01-24 09:00 | BH.SGPN.GN ---
Behaviors/Verbalizations/Mental Status: [] Client alert and oriented, casually dressed and groomed. Eye contact good. Motor activity appropriate. Speech within normal limits. Affect congruent, mood anxious and depressed. Thoughts linear, logical, no signs of hallucinations or delusions. Reviewed client?s symptom tracker, no risk for suicidal ideation, plan, or intent as of 01/24/22. Client Response/Progress/Benefit: [] Client responded well to group by actively participating throughout group. Reported that her emotion was critical. Client shared how she was been having an increasingly negative view on herself that stemmed from going to her class reunion and comparing herself to others and their success. Client tearfully talked about how she isn't where she imagined herself would be today. Client also shared how she wants lose weight and saw pictures of herself that made her feel bad. Client seemed to benefit from feedback from group members, along with validation and encouragement. She will continue IOP tx to increase coping skills, increases self-esteem, and increase overall functioning. Narrative Note: []
--- NOTE | 2022-01-24 10:10 | BH.SGPN.GN ---
Behaviors/Verbalizations/Mental Status: [] Client alert and oriented, casually dressed and groomed. Eye contact good. Motor activity appropriate. Speech within normal limits. Affect congruent, mood anxious and depressed. Thoughts linear, logical, no signs of hallucinations or delusions. Client Response/Progress/Benefit: [] Client responded well to session AEB sharing and listening attentively to others. Client provided examples of benefits of having social support. Client also participated in group discussion regarding the different kinds of supports in our safety net and the things that weaken or prevent us from using our supports. Client identified her therapist as a support in her support system. Clinician provided psychoeducation on types of support including internal and external support, with client identifying family and hobbies as other supports. Client participated in experiential activity illustrating the importance of having multiple social supports. Client provided supportive feedback and problem solving throughout group activity. Client participated in group processing of the activity. Client appeared to benefit from increased knowledge of the benefits of social support and greater self-awareness. Will continue IOP treatment to continue increasing self-esteem, decrease anxious thought pattern, and increase overall functioning. Narrative Note: [] Behaviors/Verbalizations/Mental Status: [] Client alert and oriented, casually dressed and groomed. Eye contact good. Motor activity appropriate. Speech within normal limits. Affect congruent, mood euthymic. Thoughts linear, logical, no signs of hallucinations or delusions. Client Response/Progress/Benefit: [] Client responded well to session AEB sharing and listening attentively to others. Client provided examples of benefits of having social support. Client also participated in group discussion regarding the different kinds of supports in our safety net and the things that weaken or prevent us from using our supports. Client identified her therapist as a support in her support system. Clinician provided psychoeducation on types of support including internal and external support, with client identifying family and hobbies as other supports. Client participated in experiential activity illustrating the importance of having multiple social supports. Client provided supportive feedback and problem solving throughout group activity. Client participated in group processing of the activity. Client appeared to benefit from increased knowledge of the benefits of social support and greater self-awareness. Will continue IOP treatment to continue increasing self-esteem, decrease anxious thought pattern, and increase overall functioning. Narrative Note: []
--- NOTE | 2022-01-24 22:08 | BH.MDN ---
Multi-Disciplinary Note - Note 45-min Individual Time Started:: 10:20 Date: 01/24/22 Purpose of session/treatment goals addressed:: Purpose of session was to address goals 1 and 2 from [facility]TP. Eye Contact:: Fair Motor Activity:: Appropriate Appearance:: Casual Speech:: Appropriate Mood:: Depressed Affect:: Congruent, Other - tearful Thoughts:: Linear, Logical, No evidence of hallucinations/delusions noted Staff Interventions:: thought challenging, CBT techniques, strengths perspective, goal setting, taught coping skills - acceptance of what can't control. Focusing on what she can do to make situation better. Client Response:: Client reported she went to her class reunion over the weekend in which she had fun but stated she compared herself to the other classmates. 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 Client reported she attempted to challenge her negative thought patterns but states I do not believe the positive thoughts. Client stated she also drink more alcohol than she had intended which she stated was disappointing. Client reported she drank 5 beers prior to leaving her hotel room for the event and bought 7 beers while she was at the event. Client stated this is an increase in her typical alcohol intake. Client reported she did not get much done on Sunday or Sunday due to not feeling well, being tired, and beating self up. Client reported she has been having a hard time because it brought up thoughts of feeling like it is unfair she has mental illness and other people do not have to struggle. Client stated she sometimes has a hard time not feeling bad for herself which she recognizes can keep her stuck. Somewhat receptive to therapist challenging negative thoughts. Responded well to education about the need of acceptance of current situation. Client recognizes one of her big struggles is being financially in a tough spot which leads to her not being able to do fun things. Recognizes once she pays off some debt she incurred previously in a year and a half she will be in a much better financial position. Discussed importance of being able to accept current financial situation and identify ways she can cope with it. Risks/Concerns:: Denies current suicidal ideation, plan or intention to date. Progress Toward Goals/Plan:: Recent setback with pt attending class reunion which led pt to reflect on how she doesn't feel accomplished in her life. Pt had increased negative thought patterns. Pt struggling with accepting her financial position. Pt open to learning and practicing how to accept situations that are outside her control. Pt recognizes focusing on what she can't do has negative impact on mood. Pt utilized drinking as a way to cope with feelings this weekend, but is able to recognize this is something she doesn't want to do. Pt to continue IOP to move on after this setback, get back to using healthy skills, and prevent further decompensation. Time Stopped:: 11:00
--- NOTE | 2022-01-26 09:01 | BH.SGPN.GN ---
Behaviors/Verbalizations/Mental Status: []Pt eye contact good, casually dressed, motor activity appropriate, speech normal rate and tone, mood euthymic, congruent affect, thoughts linear and intact, no evidence of delusions or hallucinations. Per client's symptom tracker she indicates no suicidal ideation, plan or intent. Client Response/Progress/Benefit: [] Client engaged participant as evidenced by sharing thoughts and feelings and listening attentively to others. Client reported she is feeling refreshed because she got plenty of rest last night. Client stated mental positive as getting to the gym 3 out of 4 days with plans to go to the gym today as well. Additional mental when as advocating for self this morning by knocking on the wall to alert her neighbor to be more quiet because client stated has issues with this neighbor yelling often. Stated additional mental positive as choosing to make appointment with her neurologist to make sure she does not have muscle rigidity in her legs which could explain from a few Occurrences in which she felt she could not move. Stated feeling nervous this morning because she was in close contact with a teacher that has COVID. Seen benefit from expressing thoughts and feelings. Progress noted as client reported an improved mood. Client to continue IOP to continue to utilize healthy coping skills, challenge negative thinking, and prevent decompensation. Narrative Note: []
--- NOTE | 2022-01-26 10:15 | BH.SGPN.GN ---
Behaviors/Verbalizations/Mental Status: []Eye contact is good. Motor activity is appropriate. Appearance is casual. Speech is Appropriate. Mood is anxious. Affect is constricted. Thoughts are linear and logical. No evidence of psychosis. Client Response/Progress/Benefit: []Pt was attentive during group discussion. Attentive during psychoeducation on problem-solving strategies. Participated in group experiential activity. Pt provided feedback during interactive group discussion in which pt and peers worked through an example of a problem (Managing Anxiety) in which they identified a goal (minimizing anxiety) and identified barriers. Group was able to complete the activity and pt was able to practice in the moment problem-solving and make connections between problem-solving for activity and in real-life situations. Increased awareness of how pt responds to problems and how shutting down is a common response. Will continue IOP tx to further improve emotional regulation, reduce negative thinking, and increase self-compassion. Narrative Note: []
--- NOTE | 2022-01-26 11:12 | BH.SGPN.GN ---
Behaviors/Verbalizations/Mental Status: []Pt alert and oriented, casual dress, hygiene tended to. Eye contact good. Motor activity WNL. Speech appropriate rate and tone. Affect congruent, mood anxious and euthymic.? Thoughts linear, logical, no signs of hallucinations or delusions. Client Response/Progress/Benefit: []Pt engaged in session as evidenced by pt listening to others and providing input throughout. Pt completed problem solving example with group and identified a goal they want to work on. Goal identified as: improving ability to cope with intrusive thoughts. Pt?s barriers included: negative thinking, self-doubt, and lack of motivation. Pt also identified steps she could take such as taking a step back and finding healthy distractions when experiencing intrusive thoughts, reach out to supports, and apply mindfulness skills to reduce anxiety in the moment. Pt seemed to benefit from learning about problem solving method and rehearsing problem-solving skills in the moment. Pt will continue IOP tx to promote gains, further increase self-esteem, and further reduce negative thinking. Narrative Note: []
== END 2022-01-27 23:59 ==
LOC: BHIOP 07:45
PROVIDERS: PCP Registered Nurse; Referring Provider Psychiatry & Neurology Psychiatry; Visit Provider Psychiatry & Neurology Psychiatry
DX: F31.81 Bipolar II disorder (principal); F41.1 Generalized anxiety disorder; F43.10 Post-traumatic stress disorder, unspecified
CPT/HCPCS: S9480; 90832; 90834; 90853

== ENCOUNTER 2022-01-16 21:05 | Emergency (ER) | payer MEDICARE, SELFPAY ==
--- NOTE | 2022-01-16 00:40 | RAD_ITS ---
EXAM: XR LUMBOSACRAL SPINE, 2 OR 3 VIEWS CLINICAL INDICATION: pain TECHNIQUE: Frontal and lateral views of the lumbar spine and sacrum. This report was created using View[employer] report [employer] technology. COMPARISON: None. FINDINGS: VERTEBRAE: Unremarkable. Preserved vertebral body height. No fracture. No spondylolisthesis. Preservation of the normal lumbar lordosis. No significant facet arthropathy. DISC SPACES: Moderate degenerative disc disease at L2-3. No spondylolisthesis. GASTROINTESTINAL TRACT: Unremarkable as visualized. Included bowel gas pattern is non-obstructive. OTHER FINDINGS: Irregular dense calcification in the right upper quadrant measuring approximately 2.6 x 1.5 cm. RAD/Lumbar Spine 2 or 3 Views IMPRESSION: 1. Irregular dense calcification in the right upper quadrant measuring approximately 2.6 x 1.5 cm. 2. Moderate degenerative disc disease at L2-3. Electronically Signed: Gael Hendrickson MD at 1:08 EDT ,
[2022-01-16 21:06] VITALS: BP 129/95; PULSE 59; RESP 18; TEMP 36.2; O2SAT 100; BMI 29.6
--- NOTE | 2022-01-16 23:54 | EX.ED.DYSGE1 ---
HPI History of Present Illness Chief Complaint: Weakness Informant: patient Narrative Narrative: Patient presents with 2 episodes of bilateral lower extremity heaviness feeling. She states the first occurred about a week ago. She got up in the middle of the night to go get a glass of water. She was standing at the sink. She suddenly felt like both of her legs were just heavy. It was equal side to side. She states it was not really pain but it was a heaviness or an ache. This lasted 3 or 4 minutes. She states she could not lift her legs and move or walk but she also did not fall and was able to stand. She had no back pain or any other symptoms with this. It resolved and she went back to bed. She had another episode today. She had been laying on the couch woke up and when she got up the same thing happened. It is totally resolved now. She has had absolutely no symptoms in between. She has had no other neurologic symptoms. The symptoms were equal and bilateral. She has no change in her medications. No fevers chills. Patient does have a history of a parathyroidectomy. However this was done about a year ago. She had calcium metabolism issues prior to surgery but not afterwards. She is also on thyroid replacement meds. [facility] Medical History Bipolar II disorder, most recent episode major depressive Generalized anxiety disorder History of post traumatic stress disorder Hypothyroidism Home Medications levothyroxine 50 mcg tablet 25 mcg PO DAILY 04/05/16 [History Last Taken 09/15/17] lamotrigine 200 mg tablet (Lamictal) 300 mg PO DAILY 07/28/16 [History Last Taken 09/15/17] lisinopril 10 mg tablet 10 mg PO DAILY 06/12/19 [History Last Taken Unknown] mirtazapine 45 mg tablet 45 mg PO QHS 06/12/19 [History Last Taken Unknown] multivitamin 1 ea PO DAILY 06/12/19 [History Last Taken Unknown] Calcium 1 tablet PO/SL DAILY 12/28/21 [History Last Taken Unknown] amlodipine 10 mg tablet (Norvasc) 10 mg PO DAILY 12/28/21 [History Last Taken Unknown] lurasidone 60 mg tablet (Latuda) 60 mg PO DAILY 12/28/21 [History Last Taken Unknown] Allergy/AdvReac Type Severity Reaction Status Date / Time codeine AdvReac Vomiting Verified 01/16/22 21:06 Surgical History History of carpal tunnel surgery of left wrist History of cholecystectomy History of hysterectomy History of parathyroidectomy Social History Smoking Status: Former smoker ROS ROS ED Eyes Eyes: Denies change in vision ENT ENT ED: Denies rhinorrhea or sore throat Cardiovascular Cardiovascular: Denies chest pain or palpitations Respiratory/Chest Respiratory/Chest: Denies cough Gastrointestinal Gastrointestinal: Denies abdominal pain, diarrhea, nausea or vomiting Genitourinary Genitourinary ED: Denies dysuria, hematuria or urinary frequency Musculoskeletal Musculoskeletal: Denies back pain or neck pain Integumentary Denies abscess, Abrasions or rash Neurologic Neurologic: Reports other Details: See history of present illness peer ; Denies headache(s) Psychiatric Psychiatric: Reports other Details: History of bipolar well-controlled on Latuda for many years. No change in meds Endocrine Endocrinology: Denies polydipsia or polyuria Hematologic/Lymphatic Hematologic/Lymphatic: Denies easy bleeding, easy bruising or lymphadenopathy Allergic/Immunologic Allergic/Immunologic ED: Denies urticaria EXAM Physical Exam Const Vital Signs: 01/16/22 21:06 01/16/22 23:10 01/17/22 01:48 Temperature 97.2 F L Temperature Source Temporal Pulse Rate 59 L 52 L Respiratory Rate 18 16 Respiratory Effort Normal Non-Labored Respiratory Pattern Normal Blood Pressure 129/95 H 116/82 H Blood Pressure Mean 106 93 Pulse Ox 100 95 Oxygen Delivery Method Room Air Room Air Positive well nourished and well developed General Appearance ED: well developed and NAD HEENT Reports moist mucous membranes Eyes PERRL and EOMs intact bilaterally Neck no lymphadenopathy and supple Neck Narrative: No swelling or tenderness of the neck. Chest Wall inspection of chest normal Resp normal respiratory effort and clear to auscultation bilaterally Cardio regular rate and regular rhythm GI normal to inspection, nondistended, normoactive bowel sounds, non-tender, non-distended and no masses Back/Spine no CVA tenderness Back/Spine Narrative: No back tenderness or pain with range of motion. No percussion tenderness Cervical Spine: Negative for cervical spine tenderness Thoracic Spine / Upper Back: Negative for thoracic spinal tenderness Lumbar Spine / Lower Back: Negative for lumbar spinal tenderness Extremity normal to inspection Extremity Narrative: Legs show no swelling. No tenderness. No color changes. Excellent distal pulses x4 Neuro oriented x3 and no sensory deficits noted Sensorium / Orientation: alert; Negative for orientation impaired or lethargic Sensory Exam: No sensory level loss detected Motor Exam: strength 5/5 throughout Psych mental status grossly normal Skin no rashes or lesions noted MDM MDM MDM Narrative Medical decision making narrative: Blood work showed mild elevation of the hemoglobin. White count platelets are normal. Electrolytes are overall unremarkable. Magnesium calcium and TSH are also normal. Her imaging showed no explanation for her symptoms. Symptoms are resolved. I explained that this still needs to be followed up. She may end up having further imaging of the spine or head. It would be unlikely for a disc or spinal lesion to cause intermittent heaviness without loss of neurologic function. Likewise it would be uncommon for MS to cause symptoms that only lasted for a few minutes and were completely asymptomatic afterwards. But she still may warrant further imaging. We discussed returning with repeat symptoms, weakness, bowel bladder dysfunction, fevers or other concerns Lab Data Attestation: I reviewed the patient's lab results. Labs: Laboratory Results - last 24 hr 01/17/22 01/17/22 00:13 00:13 WBC 8.1 RBC 4.50 Hgb 15.6 H Hct 45.9 MCV 102.0 H MCH 34.7 H MCHC 34.0 RDW Std Deviation 48.3 H RDW Coeff of Roxann 13.0 Plt Count 294 MPV 9.1 Immature Gran % (Auto) 0.400 Neut % (Auto) 50.9 Lymph % (Auto) 37.2 [place] % (Auto) 8.4 Eos % (Auto) 2.2 Baso % (Auto) 0.9 Absolute Neuts (auto) 4.1 Absolute Lymphs (auto) 3.00 Nucleated RBC % 0 Sodium 142 Potassium 4.9 Chloride 110 H Carbon Dioxide 25.0 Anion Gap 7 BUN 14 Creatinine 1.04 H Estim Creat Clear Calc 53.06 Est GFR (MDRD) Af Amer 70 Est GFR (MDRD) Non-Af 58 L BUN/Creatinine Ratio 13.5 Glucose 83 Calcium 9.2 Magnesium 2.3 TSH 1.64 Radiography Diagnostic Testing: Clinical Impression(s) from Imaging Studies Lumbar Spine X-Ray 01/16/22 00:40 IMPRESSION: 1. Irregular dense calcification in the right upper quadrant measuring approximately 2.6 x 1.5 cm. 2. Moderate degenerative disc disease at L2-3. Electronically Signed: Gael Hendrickson MD at 1:08 EDT , Brain CT 01/17/22 00:00 IMPRESSION: No acute intracranial disease. Electronically Signed: Gael Hendrickson MD at 0:54 EDT , Lumbar spine x-ray showed degenerative disc disease and a dense calcification toward the right upper quadrant. This can be followed as an outpatient I did discuss this with the patient. CT of the head showed no acute process. These images were read by radiology and looked at by me. Discharge Plan Triage Chief Complaint: Weakness Other Complaint: Lower Extremity Injury ED Provider: Rudi Wong Dx/Rx/DC Orders Clinical Impression: Heavy sensation of lower extremity Instructions: ED Weakness (Uncertain Cause) Prescriptions: No Action levothyroxine 50 MCG tablet 25 mcg PO DAILY lamotrigine [Lamictal] 200 MG tablet 300 mg PO DAILY multivitamin 1 EACH tablet 1 ea PO DAILY lisinopril 10 MG tablet 10 mg PO DAILY mirtazapine 45 MG tablet 45 mg PO QHS Latuda 60 mg Tablet 60 mg PO DAILY amlodipine [Norvasc] 10 mg Tablet 10 mg PO DAILY Calcium 1 tablet PO/SL DAILY Primary Care Provider: Anyi Woods NP Referrals: Anyi Woods MANAGER TRANSFER, MANAGER TRANSFER-C [Primary Care Provider] - As soon as possible Disposition Disposition: Home, Self Care
--- NOTE | 2022-01-17 | CT_ITS ---
EXAM: CT HEAD WITHOUT INTRAVENOUS CONTRAST CLINICAL INDICATION: weakness TECHNIQUE: Multiple axial images were obtained of the head without intravenous contrast. CTDIvol = ( 44.99 ) mGy, DLP = ( 796.11 ) mGycm This CT exam was performed using one or more of the following dose reduction techniques: automated exposure control, adjustment of the mA and/or kV according to patient size, and/or use of iterative reconstruction technique. This report was created using [employer] report generation technology. COMPARISON: 03/16/2020. FINDINGS: BRAIN AND EXTRA-AXIAL SPACES: Unremarkable. No intra- or extra-axial hemorrhage. No evidence of acute infarct. No intracranial mass or mass effect. There is preservation of the mcdaniel/white matter interface. Posterior fossa structures are unremarkable. Ventricles are appropriate for age. No hydrocephalus. Basal cisterns are patent. Atherosclerotic calcifications of the carotid siphons and vertebrobasilar arteries. BONES/JOINTS: Unremarkable. No discrete lytic or blastic abnormalities. SINUSES: Unremarkable as visualized. Clear. MASTOID AIR CELLS: Unremarkable. Clear. ORBITS: Visualized globes, extraocular muscles, optic nerves and retrobulbar fat appear unremarkable. CT/Brain/Head without Contrast IMPRESSION: No acute intracranial disease. Electronically Signed: Gael Hendrickson MD at 0:54 EDT ,
[2022-01-17 00:23] LABS: Absolute Neutrophil Count 4.1 X10^3/uL (2.0-7.7); Basophil# 0.07 X10^3/uL; Basophil% 0.9 % (0-1); Eosinophil# 0.18 X10^3/uL; Eosinophils% 2.2 % (0-5); Hematocrit 45.9 % (37-47); Hemoglobin 15.6 g/dL (12.0-15.0); Lymphocyte % 37.2 % (19-41); Mean Corpuscular Hgb 34.7 pg (27.0-32.0); Mean Platelet Vol. 9.1 fl (6.2-12.0); Monocyte# 0.68 X10^3/uL; Monocyte% 8.4 % (0-10); NRBC Flagged by Analyzer 0 % (0-5); Neutrophil # 4.11 X10^3/uL (2.7-7.7); Neutrophil % 50.9 % (47-70); Platelet Count 294 K/mm3 (150-450); RBC Distribution Width SD 48.3 fl (35.1-43.9); White Blood Count 8.1 K/mm3 (4.4-11.0)
[2022-01-17 00:55] LABS: Anion Gap 7 (5-15); BUN 14 mg/dL (7-18); BUN/Creat Ratio 13.5 RATIO (10-20); Calcium,Total 9.2 mg/dL (8.5-10.1); Chloride 110 mmol/L (98-107); Creatinine, Serum 1.04 mg/dL (0.55-1.02); EST Glomerular Filtration Rate 58 mL/min (>60); Est Glom Filt Rate - Afr Amer 70 mL/min (>60); Estimated Creatinine Clearance 53.06 ml/min; Glucose 83 mg/dL (74-106); Magnesium 2.3 mg/dL (1.6-2.6); Potassium 4.9 mmol/L (3.5-5.1); Sodium Level 142 mmol/L (136-145); Thyroid Stim Hormone (TSH) 1.64 uIU/mL (0.358-3.74)
[2022-01-17 01:48] VITALS: BP 116/82; PULSE 52; RESP 16; O2SAT 95
== END 2022-01-17 02:57 | disposition home or self-care (01) ==
PROVIDERS: Emergency Provider Emergency Medicine; PCP Registered Nurse; Visit Provider Emergency Medicine
DX: R53.1 Weakness (principal); Z87.891 Personal history of nicotine dependence
CPT/HCPCS: 70450; 72100; 80048; 83735; 84443; 85025; 99282; A4216

== ENCOUNTER 2022-01-30 08:59 | Outpatient (RCR) | payer MEDICARE, SELFPAY ==
[2022-01-28 01:42] VITALS: BP 121/82; PULSE 71
--- NOTE | 2022-01-31 09:05 | BH.SGPN.GN ---
Behaviors/Verbalizations/Mental Status: [] Eye contact is good. Motor activity is appropriate. Appearance is casual. Speech is Appropriate. Mood is depressed. Affect is flat. Thoughts are linear and logical. No evidence of psychosis. Reviewed daily check in sheet and no reports of suicidal ideations or intent. Client Response/Progress/Benefit: [] Pt was an active participant in group discussions. Attentive. Daily symptom tracker notes 4/5 for anxiety and irritability and a 3/5/ for depression. Emotion for today is ?distressed and depressed?. Mental health wins were ?getting here today?. Shared struggles with low energy and motivation these AM. Significant ruminations and ?what if? thinking yesterday and this AM. ?My life is a house of cards?. Discussed how it seems that any stressors can cause her life to decompensate. Group provided support, feedback, and encouragement which was beneficial. Will continue in IOP to prevent decompensation, increase healthy coping, and stabilize mood. Narrative Note: []
--- NOTE | 2022-01-31 10:05 | BH.SGPN.GN ---
Behaviors/Verbalizations/Mental Status: []Eye contact is good. Motor activity is appropriate. Appearance is casual. Speech is Appropriate. Mood is depressed and anxious. Affect is constricted. Thoughts are linear and logical. No evidence of psychosis. Client Response/Progress/Benefit: []Pt was an active participant in group discussions. Attentive during psychoeducation. Participated with peers in experiential activity and provided ideas to the group. Pt participated in an interactive discussion with peers in which they worked together to define what coping skills are. Pt shared that coping skills ?are skills that help you reframe things in a positive way?. Indicates that she has struggled with using healthy skills to cope in the past. Group then identified unhealthy coping skills which included; lashing out, negative self-talk, isolating, substance abuse, avoidance, sleeping to escape, and distracting self with other?s problems. Psychoeducation on internal vs external coping skills. Benefited from increased awareness and education on the benefits of having both internal and external coping skills. Will continue in IOP to maintain gains and promote healthy skill application, continue to improve mood management, and prevent decompensation as pt finalizes aftercare plans. Narrative Note: []
--- NOTE | 2022-01-31 11:47 | BH.MDN ---
Multi-Disciplinary Note - Note 30-min Individual Time Started:: 11:05 Date: 01/31/22 Purpose of session/treatment goals addressed:: Purpose of session was to address goals 1 and 2 from MTP. Eye Contact:: Fair Motor Activity:: Appropriate Appearance:: Casual Speech:: Appropriate Mood:: Anxious, Dysthymic Affect:: Constricted Thoughts:: Linear, Logical, No evidence of hallucinations/delusions noted Staff Interventions:: thought challenging, CBT techniques, mindfulness skills, strengths perspective, goal setting, taught coping skills - budgeting, other - reviewed treatment progress Client Response:: Kalen reported her only external support is counseling. Client stated she realized she doesn't reach out to her friends/family for support when needed, but will be willing to help out others. Client reported she knows she needs to be more willing to ask for help from the people in her life. Client reported she is worried that she doesn't have enough discipline to use her healthy skills. Client stated she feels lazy and tells herself it's too hard so she just doesn't try. Client reported she then falls back onto unhealthy coping of smoking weed, impulsive spending, and unhealthy eating. Client able to connect the consequences once she falls back to using unhealthy coping. Client agreed being able to meal plan would be helpful to decrease unhealthy eating. Discussed importance of budgeting so she can go grocery shopping weekly versus going once a month. Recognizes when shops monthly it's too hard to plan for meals so less likely to eat good meals. Client agreed to check in with her bank to see if there are budgeting options through the [employer] portal. Client stated despite struggling with some negative/anxious thoughts she did have an overall good weekend. Client stated she spent time decluttering and cleaning her apartment. Client reported she managed stressor of finding out she needs two new tires. Client reported mood was improved over weekend until she was faced with the stressor of needing two new tires. However, is pleased with herself that she chose to contact her [id number] for help with buying the tires. Client reported she has worked out 5 of 7 days. Reviewed treatment progress with therapist stating she has recently noticed more days in which her mood is improved and is finding IOP to be helpful with refreshing self on her skills. Stated in the next few weeks would like to work on consistently applying skills and keeping up with her work out goal. Risks/Concerns:: Denies suicidal thoughts, plan or intention to date. Progress Toward Goals/Plan:: Progress noted with pt reporting improved mood recently and ability to manage significant stressor of needing two new tires. Client is struggling with negative thoughts about where she should be in life and having a difficult time accepting her financial situation. Pt starting to show improvement with being able to manage stressors in a healthier way. Pt to continue IOP to continue use of healthy coping, challenge negative thoughts, and prevent decompensation. Time Stopped:: 11:40
--- NOTE | 2022-02-02 09:00 | BH.SGPN.GN ---
Behaviors/Verbalizations/Mental Status: []Eye contact fair, casually dressed, motor activity appropriate, speech normal rate and tone, mood anxious, congruent affect, thoughts linear and intact, no evidence of delusions or hallucinations. Reviewed pt's symptom tracker, no indication of suicidal ideation or intent. Client Response/Progress/Benefit: [] Client respond well to session as evidenced by her listening attentively to others and openly sharing thoughts and feelings. Client identified mental positive as going for a walk at the park. Client reported additional positive as listening to a podcast that she found interesting. Reported stressor as her neighbor keeps waking client up at 5am due to the neighbor yelling and screaming. Client stated she plans to talk with the landlord about the noise issues because it's the third time this week it has happened. Client seemed to benefit from support from peers. Client to continue IOP to challenge negative thoughts, increase healthy coping, and prevent decompensation.
--- NOTE | 2022-02-02 10:10 | BH.SGPN.GN ---
Behaviors/Verbalizations/Mental Status: []Pt alert and oriented, casually dressed and groomed. Eye contact good. Motor activity appropriate. Speech within normal limits. Affect congruent, mood anxious. Thoughts linear, logical, no signs of hallucinations or delusions. Client Response/Progress/Benefit: []Pt was an active participant AEB contributing to discussion, taking notes, and engaging in group activity. Connected with the topic of pitfalls and listened to group discussion on barriers that prevent from choosing a healthier path to mental wellness. Group worked together to identify examples of personal pitfalls which included; resentment/anger, shutting down, low motivation, making excuses, denial, distortions, and unhealthy coping. Pt identified resisting help until it is too late, self-doubt, and all or nothing thinking as personal pitfalls that have inhibited progress in the past.? Pt benefited from group as pt learned to better identify potential barriers to improving mental health symptoms. Pt will continue IOP tx to combat negative thinking patterns, reduce use of unhealthy coping, and improve self-compassion. Narrative Note: []
--- NOTE | 2022-02-02 11:12 | BH.SGPN.GN ---
Behaviors/Verbalizations/Mental Status: []Pt alert and oriented, casually dressed and groomed. Eye contact good. Motor activity appropriate. Speech within normal limits. Affect congruent, mood anxious and dysthymic. Thoughts linear, logical, no signs of hallucinations or delusions. Client Response/Progress/Benefit: []Pt receptive of session, engaged throughout AEB pt actively listening and contributing to discussion, as well as taking notes.? Pt participated in the experiential activity and did well to communicate ideas with peers and manage emotions. Pt and group processed how the emotions and perspective of the group impacted the activity. Pt reported her own anxiety made it difficult to focus on the goal at times. Group worked together to identify different coping skills to help manage pitfalls. Pt identified pitfalls they struggle with such as self-doubt and assertive communication. Pt plans to work on the pitfall of improving use of assertive communication by beginning to practice using kind words towards herself to increase [id number] and self-respect. Benefited from identifying personal pitfalls and strategies to overcome these pitfalls. Will continue IOP tx to prevent decompensation, challenge distortions, and increase the use of healthy coping skills. Narrative Note: []
--- NOTE | 2022-02-07 09:00 | BH.SGPN.GN ---
Behaviors/Verbalizations/Mental Status: [] Eye contact is good. Motor activity is appropriate. Appearance is casual. Speech is Appropriate. Mood is depressed. Affect is flat. Thoughts are linear and logical. No evidence of psychosis. Reviewed daily check in sheet and no reports of SI. Client Response/Progress/Benefit: [] Pt participated at times during the group discussion. Attentive. Daily symptom tracker notes 3/5 for depression and 2/5 for anxiety. Recent anxiety and rumination due to her psychiatrist informing her that she will be leaving the area. ?This is terrible?. She was able to identify and reframe catastrophizing thoughts before they led to panic and impacted her functioning. Reports that she is trying to focus on what is in her control and will address obstacles ?if? they could and not creating obstacles that are not happening. Increased awareness of other cognitive distortions regarding her support and events over the weekend which has prevent decompensation. Narrative Note: []
--- NOTE | 2022-02-14 09:05 | BH.SGPN.GN ---
Behaviors/Verbalizations/Mental Status: [] Eye contact is good. Motor activity is appropriate. Appearance is casual. Speech is Appropriate. Mood is euthymic. Affect is full. Thoughts are linear and logical. No evidence of psychosis. Reviewed daily check in sheet and no reports of suicidal ideations or intent. Client Response/Progress/Benefit: [] - Pt was an active participant in group discussions. Attentive. Daily symptom tracker notes 06/04 for depression. Pt reports numerous mental health wins over the weekend. She utilized opposite action and went for a walk, a drive, and out to eat by herself which was very rewarding. Reports recent ruminations regarding the holiday season and being alone as her daughters typically spend time with paternal side. Able to challenge and reframe slightly. Benefited from group support, encouragement, and feedback. Will continue in IOP to maintain safety, stabilize mood, and prevent decompensation. Narrative Note: []
--- NOTE | 2022-02-14 11:10 | BH.SGPN.GN ---
Behaviors/Verbalizations/Mental Status: []Pt alert and oriented, casually dressed and groomed. Eye contact good. Motor activity appropriate. Speech within normal limits. Affect congruent, mood dysthymic. Thoughts linear, logical, no signs of hallucinations or delusions. Client Response/Progress/Benefit: []Pt participated at times during group discussions. Attentive during psychoeducation on the 4 A's of Coping with Stress (Avoid, Alter, Adapt, Accept). Participated in experiential activity in which group members had to utilize stress management skills in the moment, providing insight and asserting her needs throughout. Pt agreed with peers that their cooperation and communication was a helpful resource and pt worked well with peers to problem-solve the stressors presented. Pt engaged in review of the 4 A?s and picked wanting to work on accepting her current work circumstances, but is unsure of where to start and would like to work more on this. Benefited from processing in the moment stress management strategies and identifying new ways to cope with stress. Will continue in IOP to reduce intensity of symptoms, improve self-compassion and confidence, as well as prevent decompensation. Narrative Note: []
--- NOTE | 2022-02-14 14:12 | BH.MDN ---
Multi-Disciplinary Note - Note 45-min Individual Time Started:: 11:20 Date: 02/14/22 Purpose of session/treatment goals addressed:: Purpose of session was to address goals 1 and 2 from [facility]. Eye Contact:: Good Motor Activity:: Appropriate Appearance:: Casual Speech:: Appropriate Mood:: Euthymic Affect:: Congruent Thoughts:: Linear, Logical, No evidence of hallucinations/delusions noted Staff Interventions:: thought challenging, CBT techniques, strengths perspective, goal setting, taught coping skills - habit stacking, other - reviewed healthy coping skills Client Response:: Client responded well to session AEB openly sharing thoughts and feelings. Client stated she overall has noticed mood improvement for the last week. Client reported last week she went to visit her daughters in [place] which she stated was a positive time. Client stated she went hiking with a friend over the weekend. Client reported she also spent time with friends watching football on Sunday. Client recognizes getting out with friends and doing active things is helpful for her mood. Client reported she followed through with goal of talking with her bank to set up budgets for her money. Client stated she does think this will be helpful because now gets reminders of when her bills are due. Client reported she hasn't sat down to meal plan yet but connected with skill of habit stacking. Stated she would meal plan right after she fills her pill organizer because she does this task every Sunday. Client stated she will plan to do this task this . Reported plans to continue being active either by going to the gym or hiking. 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 Risks/Concerns:: Denies suicidal ideation, plan or intention to date. future focused. Progress Toward Goals/Plan:: Progress noted with pt reporting improved mood over the last week. Client has been increasing her socialization, working out more often, hiking, and spending time with family. Client being active seems to be helping her mood. Client reports still struggling with accepting her financial situation. Stated next session she would like to discuss strategies on helping her accept certain parts of her life. Client is to continue IOP to show consistent use of healthy coping, challenge negative thoughts and prevent decompensation. Time Stopped:: 12:00
--- NOTE | 2022-02-14 16:00 | BH.TPR ---
Treatment Plan Review Date of Admission:: 12/27/21 Date of Treatment Plan Review:: 03/17/22 Admitting Diagnoses:: 1. Bipolar 2 disorder (most recent episode depressed) F31.81. 2. Generalized anxiety disorder. 3. History of PTSD Current Diagnoses:: 1. Bipolar 2 disorder (most recent episode depressed) F31.81. 2. Generalized anxiety disorder. 3. History of PTSD Patient's Response to Treatment:: Pt responding well to treatment AEB consistent attendance, contributing to discussion, and applying skills outside treatment environment. Status of Current Problems and Symptoms: Pt's progress has been variable in the last four weeks. Pt was stressed a couple weeks ago due to outpatient psychiatrist leaving practice which spike pt's anxiety. Pt is reporting improved mood and decreased anxiety this week. Pt is showing improvement with being able to manage stressful situations better. Pt hasn't allowed external stressors impact mood for several days like it was a month ago. Problem #1 Problem Name:: Mood instability Status of Goals:: obj 1 - partially met. Pt is showing increased use of healthy coping skills like opposite action, walking, socializing, getting back into hiking, and driving for distraction. DSM 5 scores not collected for review. Obj 2 - partially met, ongoing work encouraged. Pt showing improvement from last review with being able to challenge distorted thoughts independently. Still struggles at times, but improving. Team Recommendations:: Team recommends pt to continue current goals and objectives to give time for pt to show consistent treatment progress and reinforce current skills/strategies. Problem #2 Problem Name:: Anxiety Status of Goals:: Obj 1 - goal partially met, ongoing work encouraged. Showing improved use of calming skills like grounding, breathing, and socializing. Obj 2 - partially met. Pt reporting improved ability to manage anxiety this week. Did report spike in anxiety last week when found out outpatient psychiatrist was leaving. However, pt was able to use skills to manage this situation and reporting decreased anxiety. Team Recommendations:: Team recommends pt to continue current goals and objectives to give time for pt to show consistent treatment progress and reinforce current skills/strategies.
--- NOTE | 2022-02-21 09:00 | BH.SGPN.GN ---
Behaviors/Verbalizations/Mental Status: [] Eye contact is good. Motor activity is appropriate. Appearance is casual. Speech is Appropriate. Mood is anxious. Affect is congruent. Thoughts are linear and logical. No evidence of psychosis. Reviewed daily check in sheet and no reports of suicidal ideations or intent. Client Response/Progress/Benefit: [] ?Pt was an active participant in group discussions. Attentive. Daily symptom tracker notes 07/02 for depression. She shared several stressors including finding out she has a possible ?blood disorder? and having a panic attack while helping with her [employer] group. The panic attack she reports was related to a trauma trigger. Another stressor is that she is meeting with a new outpatient psychiatrist today. Shared was this is stressful. Several significant psychosocial stressors, however, she is utilizing coping skills such as reframing, accepting, and implementing affirmations. Will continue in IOP to maintain safety, stabilize mood, and increase healthy coping. Narrative Note: []
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
--- NOTE | 2022-02-23 10:10 | BH.SGPN.GN ---
Behaviors/Verbalizations/Mental Status: []Pt alert and oriented, casually dressed and groomed. Eye contact good. Motor activity appropriate. Speech within normal limits. Affect flat, mood dysthymic. Thoughts linear, logical, no signs of hallucinations or delusions. Client Response/Progress/Benefit: []Pt responded well to session AEB contributing to discussion, taking notes, and listening attentively to others. Group discussed the benefits of managed anger and anger as a secondary emotion. Pt shared perspective on negatives from acting out in anger as stress and more mental health issues.? Pt completed worksheet on anger triggers and personal warning signs of anger. Pt identified her biggest triggers as unfairness, disrespectful neighbors, and gossip. Appeared to benefit from increased knowledge of the anger cycle as well as personal triggers. Will continue IOP tx to further improve emotional regulation skills and reduce negative thinking. ? Narrative Note: []
--- NOTE | 2022-02-23 11:10 | BH.SGPN.GN ---
Behaviors/Verbalizations/Mental Status: []Client alert and oriented, casually dressed and groomed. Eye contact good. Motor activity appropriate. Speech within normal limits. Affect constricted, mood dysthymic. Thoughts linear, logical, no signs of hallucinations or delusions. Client Response/Progress/Benefit: []Pt was less engaged compared to previous group sessions. Had gill up all of group. Appeared to listen attentively to others.. Group finished processing cues to anger worksheet. Pt identified behavioral cues to anger include: clenched fists, cursing a lot, growling words under breath, and taking rash action. Pt contributed as group brainstormed healthy coping skills for better managing anger which included: music, walking/exercise, changing the environment, communicating with supports, and journaling. Pt appeared to benefit from identifying different techniques to manage anger as well as gaining awareness of potential consequences of unmanaged anger. Will continue IOP tx to continue use of healthy coping, challenge distorted thoughts and prevent decompensation.
== END 2022-02-27 23:59 ==
LOC: BHIOP 08:59
PROVIDERS: PCP Registered Nurse; Referring Provider Psychiatry & Neurology Psychiatry; Visit Provider Psychiatry & Neurology Psychiatry
DX: F31.81 Bipolar II disorder (principal); F41.1 Generalized anxiety disorder; F43.10 Post-traumatic stress disorder, unspecified; Z79.899 Other long term (current) drug therapy
CPT/HCPCS: S9480; 90832; 90834; 90837; 90853

== ENCOUNTER 2022-02-28 08:07 | Outpatient (RCR) | payer MEDICARE, SELFPAY ==
[2022-02-28 00:35] VITALS: BP 121/82; PULSE 71
--- NOTE | 2022-02-28 10:05 | BH.SGPN.GN ---
Behaviors/Verbalizations/Mental Status: [] Eye contact is good. Motor activity is appropriate. Appearance is casual. Speech is Appropriate. Mood is depressed/irritable. Affect is congruent. Thoughts are linear and logical. No evidence of psychosis. Client Response/Progress/Benefit: [] Pt was an active participant in group discussions. Attentive during psychoeducation on SMART goals (Specific, Measurable, Achievable, Realistic, and Time-bound) Engaged in group experiential activity. Participated in an interactive discussion with peers in which they worked together to define what a goal is and the benefits of having goals. Benefits identified included; something to look forward too, needed for growth, keeps one motivated, helps us track our progress, given one a sense of purpose, and keeps one busy and engaged. Participated in interactive discussion in which group identified barrier to setting goals and following through with goals. Barriers identified included; too much time and effort, criticism from self/others, unrealistic expectations, outside stressors, and fear of failure. Benefited from increased awareness of benefits and strategies for goal-setting. Will continue in IOP to prevent decompensation, stabilize mood, and provide support. Narrative Note: []
--- NOTE | 2022-02-28 11:10 | BH.SGPN.GN ---
Behaviors/Verbalizations/Mental Status: []Eye contact is fair. Alert and oriented. Motor activity is appropriate. Appearance is casual. grooming is appropriate. Speech is Appropriate. Mood is euthymic. Affect is congruent.. Thoughts are linear and logical. No evidence of psychosis or hallucinations. Client Response/Progress/Benefit: []Client was engaged during discussion, did well to complete activity and process with the group. Client was willing to complete the worksheet in which was challenged to develop a personal SMART goal. Client chose the goal of recording three accomplishments and three things she is grateful for every night for one week. Client stated this will benefit her by increasing confidence, self-esteem, and reminding self of positives. Client identified barriers which included: forgetfulness, negative attitude, wanting to stay in comfort zone, and procrastination. Client receptive to identifying solutions for these barriers and willing to begin working on this goal. Benefited from this group by developing a short-term SMART goal related to mental health. Will continue IOP tx to continue use of healthy coping skills, increase confidence and prevent decompensation.
--- NOTE | 2022-02-28 13:59 | BH.MDN ---
Multi-Disciplinary Note - Note 30-min Individual Time Started:: 09:05 Date: 02/28/22 Purpose of session/treatment goals addressed:: Purpose of session was to address goals 1 and 2 from [facility]. Eye Contact:: Good Motor Activity:: Appropriate Appearance:: Casual Speech:: Appropriate Mood:: Euthymic Affect:: Congruent Thoughts:: Linear, Logical, No evidence of hallucinations/delusions noted Staff Interventions:: CBT techniques, discharge planning, strengths perspective, other - Reviewed healthy coping skills. Processed recent stressors. Client Response:: Client reported she is feeling more stable and has noticed continued improvement with her mental health. Client stated over the weekend she had a positive time. Client shared she got to spend time with her daughter and her daughter's fianc? which was enjoyable. Client stated they took her to their wedding venue and got to spend a lot of time with them. Client expressed some anxiety about her daughter's upcoming wedding because she is not sure she can afford a wedding outfit for herself. Client recognizes if she were to ask her daughter for some help she knows her daughter would be willing to oblige. Client reported daily functioning is continuing to improve and mood is better. Client reported she did recently find out she could have some blood disorder and now has to go to hematology to get further testing. Client stated she has been doing a really good job of managing her anxious thoughts and keeping herself from catastrophizing. Client stated she has been having some difficulty with sleep due to adjusting to her medications. Client expressed current stressor as unsure if her new psychiatrist is willing to give her a physical prescription so she can get her medication filled at a cheaper location. Client recognizes she has been making significant treatment progress with advocating for herself, mood stabilization, and utilizing her skills more consistently. Client stated she does feel ready to discharge from [facility] next week. Risks/Concerns:: Denies suicidal ideation, plan, and intent. Progress Toward Goals/Plan:: Progress noted with client reporting improvement, mood stabilization, improve daily functioning, increase utilization of healthy coping skills, and ability to manage anxious thought patterns. Client having some difficulty with her sleep due to readjusting to some medications but appears to be handling that stressor in a healthy way. Plan is for client to discharge from [facility] next week. Time Stopped:: 09:25
--- NOTE | 2022-03-02 10:05 | BH.SGPN.GN ---
Behaviors/Verbalizations/Mental Status: [] Eye contact is good. Motor activity is appropriate. Appearance is casual. Speech is Appropriate. Mood is anxious. Affect is congruent. Thoughts are linear and logical. No evidence of psychosis. Client Response/Progress/Benefit: [] Pt was an active participant in group discussions. Attentive during psychoeducation on Communication Styles (Passive, Passive-Aggressive, Aggressive, and Assertive). Participated during interactive discussion on obstacles to effective communication which included; assumptions, unmanaged emotions, minimizing symptoms, resentment, etc. Participated during interactive discussion on benefits to effective communication which included; getting needs met, increased trust, improved relationships, ability to better manage conflict, decreased stress, increased self-worth, and decreased anxiety. Pt was placed in small group and was engaged in identifying benefits and consequences of each communication style. Benefited from increased understanding of communication styles and the impact they have on mental wellness. Will continue in IOP to prevent decompensation, increase healthy coping skills, and to stablize mood. Narrative Note: []
--- NOTE | 2022-03-02 11:10 | BH.SGPN.GN ---
Behaviors/Verbalizations/Mental Status: []Client alert and oriented, casually dressed and appropriately groomed. Eye contact good. Motor activity appropriate. Speech WNL. Affect congruent, mood euthymic. Thoughts linear, logical, no signs of hallucinations or delusions. Client Response/Progress/Benefit: []Client responded well to session AEB client listening attentively to others and providing input during group discussion on the pay offs and costs of the different communication styles. Client reported she most often is assertive with her communication which helps her needs get met and solve problems. Client engaged in activity however was more of a passive communicator. Client stated she was more passive because didn't know people's names. She appeared to shut down in activity when it became challenging. Connected with peers comments about importance of using assertive communication. Client seemed to benefit from increasing awareness of healthy strategies to improve communication. Will continue IOP tx to continue use of healthy coping, challenge distorted thoguhts, and prevent decompensation.
--- NOTE | 2022-03-07 09:00 | BH.SGPN.GN ---
Behaviors/Verbalizations/Mental Status: []Pt alert and oriented, casually dressed and groomed. Eye contact good. Motor activity appropriate. Speech within normal limits. Affect congruent, mood euthymic. Thoughts linear, logical, no signs of hallucinations or delusions. Reviewed pt?s symptom tracker, no risk for suicidal ideation, plan, or intent as of 03/07/22 Client Response/Progress/Benefit: [] Pt responded well to session, attentive and offering supportive statements. Pt reports feeling content this morning as pt's stressors have significantly decreased since getting notified that her new psychiatrist will fill her medications. Pt gave herself credit for all the self-advocacy she did as well as her use of thought challenging during this process. Pt is also working on acceptance and spent time over the weekend reviewing her IOP homework. Pt appeared to benefit from reflecting on her progress and use of healthy coping skills. Pt will continue IOP tx to reinforce healthy coping skills and further improve thought challenging. Narrative Note: []
--- NOTE | 2022-03-07 11:10 | BH.SGPN.GN ---
Behaviors/Verbalizations/Mental Status: []Client alert and oriented, casually dressed, hygiene appeared to be tended to. Eye contact good. Motor activity appropriate. Speech within normal limits. Affect congruent. Mood euthymic. Thoughts linear, logical, no signs of hallucinations or delusions. Client Response/Progress/Benefit: []Client engaged participant AEB client taking notes during discussion and listened attentively to peers. Participated in group discussion on the various areas of self-care, benefits, and types of self-care activities for each area. Client completed worksheet in which client identified current self-care practices and what self-care activities client wants to start using. Client able to complete provided worksheet in which she identified self-care ideas for each area of self-care. Client identified for physical self-care she would like to exercise consistently and meditate. Appeared to benefit from reflecting on the area of self-care client can improve. Client to continue IOP to consistently apply healthy coping skills, improve confidence, and prevent decompensation.
--- NOTE | 2022-03-08 09:05 | BH.SGPN.GN ---
Behaviors/Verbalizations/Mental Status: [] Eye contact is good. Motor activity is appropriate. Appearance is casual. Speech is Appropriate. Mood is euthymic. Affect is full. Thoughts are linear and logical. No evidence of psychosis. Reviewed daily check in sheet and no reports of suicidal ideations or intent. Client Response/Progress/Benefit: [] Pt was an active participant in group discussion. Attentive. Provided appropriate feedback. Emotion for today is happy. Shared that she was able to work through and manage stressful events. Elaborated on the events. Utilized coping skills such as reframing and challenging thoughts as well as self-care which had positively impacted her mood. Benefited from group support, encouragement, and feedback. Will continue in IOP to maintain gains, prevent decompensation, and to provided support. Narrative Note: []
--- NOTE | 2022-03-08 10:12 | BH.SGPN.GN ---
Behaviors/Verbalizations/Mental Status: []Eye contact is good. Motor activity is appropriate. Appearance is casual and grooming tended to. Speech is Appropriate. Mood is dysthymic, anxious. Affect is congruent. Thoughts are linear and logical. No evidence of psychosis Client Response/Progress/Benefit: []Client receptive of session, actively engaged throughout AEB taking notes and attentive as group input and examples to discussion. Appeared to connect with group topic of cognitive distortions and the impact of thought patterns on mental health, coping behaviors, and relationships. Reflected that she personally tends to struggle with distortions of all of nothing thinking and catastrophizing. Client reported that there are times where she will assume the worst when faced with a new or unexpected stressor. Client appeared to benefit from gaining insight on distorted thinking patterns and how this impacts overall mental health. Progress noted in client report of improved insight and ability to combat distortions with alternative positive thoughts. Will continue IOP tx to further improve mood stability, reduce negative thinking patterns, and increase overall functioning. Narrative Note: []
--- NOTE | 2022-03-08 11:15 | BH.SGPN.GN ---
Behaviors/Verbalizations/Mental Status: [] Eye contact is good. Motor activity is appropriate. Appearance is casual. Speech is Appropriate. Mood is euthymic. Affect is full. Thoughts are linear and logical. No evidence of psychosis. Client Response/Progress/Benefit: [] Pt was an active participant in the group activity which involved working with peers to answer questions related to psychoeducation on cognitive distortions. Questions were posed in the fashion of Jeopardy and the categories included; Identifying the Cognitive Distortion, Ways to reframe cognitive distortions, Examples of cognitive distortions, and other areas related to cognitive distortions. The was a fun and engaging way to help reinforce psychoeducation and to help client retain the information through examples and practicing. Pt was engaged in the game and with peers on collaborating to determine the answers. Benefited from rehearsing ways to challenge/reframe cognitive distortions and by gaining increased insight into examples/definitions of 10 most common cognitive distortions. Will continue in IOP to maintain gains and prevent decompensation. Narrative Note: []
--- NOTE | 2022-03-08 12:54 | PCM.BH.PN ---
Progress Note Progress Note: History of Present Illness/Interim History: The patient is a 56-year-old , female who is seen in follow-up at the [facility] behavioral health IOP program. She has a history of bipolar 2 disorder anxiety and PTSD. Patient was last seen 1 month ago and she states that she feels much better lately and feels she is benefiting from the IOP program. She feels her depressed mood has greatly improved and and she feels more stable. She denies hopelessness, worthlessness, guilt, passive thoughts of , suicidal ideation, plan for suicide, homicidal ideation, hallucinations or delusions. She denies any recent symptoms of joann. 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 Energy and concentration has all have also improved. She took her mirtazapine in the morning for about 5 days but states it was making her too drowsy so she switched back to taking it at night over the weekend. She also uses 1 puff of medical marijuana at night to help her sleep. She has not had a panic attack for 4 weeks now. She admits that she does not take her Latuda with food because she feels anxious 2 hours after she takes it if she takes it with food so is taking without food and feels it is benefiting her. She also does not want to eat food before bed so she does not take Latuda with food. Current Psychiatric Medications: [] Latuda 60 mg p.o. nightly (x4 years); Lamictal 300 mg p.o. nightly (x10 years); mirtazapine 45 mg p.o. nightly (x4 years) Mental Status Examination: [] The patient is a 56-year-old female who appears normal for stated age and is casually dressed and groomed with good hygiene. She is ambulatory with a normal gait and has no psychomotor agitation or retardation. She is cooperative and pleasant during the interview. Eye contact is good and speech is normal rate and rhythm and fluent with no pressure. Mood is euthymic. Affect is full and normal. Thought process is goal-directed and organized. Thought content: There is no evidence of passive thoughts of , suicidal ideation, plan for suicide, homicidal ideation, hallucinations or delusions. Reality testing is intact. Impulsivity is mild. Insight is good. Diagnoses: [] 1. Bipolar 2 disorder (most recent episode depressed) 2. Generalized anxiety disorder 3. PTSD history 4. 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 Hypertension 6. Primary support and financial issues Plan: [] The patient will continue the IOP program at [facility] as the structure, support, education and group therapy will hopefully prevent worsening of the fit patient's symptoms. The patient felt safe during the interview and if it anytime she does not feel safe she will let us know or go to the emergency room. The risk, options, possible complications and side effects of medications were discussed with the patient and she understands accepts these. Discussed with the patient that if she does not take the Latuda with food she will not absorb it as well and it is possible she could take a lower dose if she was taking it with food. However the patient is pleased with how stable she is on this dose so wishes to continue it and the current way she is taking it. The patient will follow up with her outpatient psychiatric and medical providers and I will see the patient in follow-up while she is in the IOP program.
--- NOTE | 2022-03-09 09:00 | BH.SGPN.GN ---
Behaviors/Verbalizations/Mental Status: [] Eye contact is good. Motor activity is appropriate. Appearance is casual. Speech is Appropriate. Mood is euthymic. Affect is full. Thoughts are linear and logical. No evidence of psychosis. Reviewed daily check in sheet and no reports of suicidal ideations or intent. Client Response/Progress/Benefit: [] Pt was an active participant in group discussions. Attentive. Provided appropriate feedback. Emotion for today is ?tired?. Mental health wins include being an advocate for a local cause. She reports being passionate about the cause and motivated to make changes. This cause has led making some new friends which has also been beneficial for her mental health. She has also joined a dating [employer] which is causing anxiety as she is very self-conscious and believes that she is not desirable due to having money issues and mental illness. Able to reframe somewhat. Benefited from group support, encouragement, and feedback. Will continue in IOP to prevent decompensation, provide support, and maintain gains. Narrative Note: []
--- NOTE | 2022-03-09 10:10 | BH.SGPN.GN ---
Behaviors/Verbalizations/Mental Status: [] Client alert and oriented, casually dressed and groomed. Eye contact good. Motor activity appropriate. Speech within normal limits. Affect congruent, mood euthymic. Thoughts linear, logical, no signs of hallucinations or delusions Client Response/Progress/Benefit: []Client responded well to session AEB sharing and listening attentively to others. Client was engaged throughout group discussion defining fixed mindset and what it can look like. Group identified several aspects of fixed mindset which included; negative outlook, fear of failing, absolute thinking, and inability to grow your intelligence. Group discussed how fixed mindset affects mental health and why we use fixed thoughts. Client participated in experiential activity encouraging client to find solutions to a seemingly impossible task. Client identified personal fixed thoughts in session which included ?I'm not smart for this and I'm gonna look like a failure and I've always been like this, so it's too late to change? Client gained insight to how these fixed thoughts reduce motivation and keep client stuck in unhealthy cycles. Client appeared to benefit from increased knowledge of fixed mindset and self-awareness of personal fixed thoughts. Will continue IOP treatment to reduce negative self-talk and increase overall functioning. Narrative Note: []
--- NOTE | 2022-03-09 11:10 | BH.SGPN.GN ---
Behaviors/Verbalizations/Mental Status: [] Client alert and oriented, casually dressed and groomed. Eye contact good. Motor activity appropriate. Speech within normal limits. Affect congruent, mood euthymic Thoughts linear, logical, no signs of hallucinations or delusions. Client Response/Progress/Benefit: [] Client engaged during activity and discussion AEB providing some input, connecting with peers, as well as taking notes throughout. Client did well to engage as group worked on identifying characteristics and benefits of adopting a growth mindset. Worked with fellow participants in reframing the example fixed thoughts into growth mindset thoughts. Reframed personal fixed thought of ?I've always been like this, so it's too late to change now? with growth mindset thought of ?I'ts never too late to change? Benefitted from discussing benefits of growth mindset and brainstorming strategies for prompting growth-mindset. Will continue IOP tx to improve self-care consistency and increase self worth. Narrative Note: []
--- NOTE | 2022-03-14 09:05 | BH.SGPN.GN ---
Behaviors/Verbalizations/Mental Status: [] Eye contact is good. Motor activity is appropriate. Appearance is casual. Speech is Appropriate. Mood is euthymic. Affect is full. Thoughts are linear and logical. No evidence of psychosis. Reviewed daily check in sheet and no reports of suicidal ideations or intent. Client Response/Progress/Benefit: [] Pt was an active participant in group discussions. Attentive. Emotion for today is ?energized?. Provided appropriate feedback. Mental health win includes continuing to be involved in local advocacy. Pt reports being involved has led to passion and engagement which has contributed to daily purpose. There has also been a social aspect to getting involved in local causes. States ?I?m feeling better in every aspect of my life?. Reports utilizing skills and remaining in the present. Stressor today is medical follow-up regarding ?possibility have a blood disorder?. She is reframing negative thoughts and focusing on the present and ?what I can control?. Benefited from group support, encouragement, and feedback. Will continue in IOP to maintain gains and prevent decompensation. Narrative Note: []
--- NOTE | 2022-03-14 10:15 | BH.SGPN.GN ---
Behaviors/Verbalizations/Mental Status: [] Eye contact is good. Motor activity is appropriate. Appearance is casual. Speech is Appropriate. Mood is euthymic. Affect is congruent. Thoughts are linear and logical. No evidence of psychosis. Client Response/Progress/Benefit: [] Client was an attentive during interactive group discussions by writing notes and sharing when prompted. Attentive during psychoeducation on the six types of boundaries (physical, emotional, intellectual, sexual, time, and material) AEB note-taking. Along with peers contributed to interactive discussion on defining what a boundary is in mental health. Client along with peers identified challenges to setting boundaries which included: fear of other's response, guilt, fear of losing relationships, and lack of confidence. Worked with peers to identify the benefits to setting boundaries such as increased control, benefit to mental health, and increased confidence. Client shared fear of abandonment as barrier that keeps her from setting boundaries. Client benefited from increased awareness and insight on the importance/benefit to setting health boundaries. Will continue in IOP to improve distress tolerance, consistently apply healthy coping skills, and prevent decompensation.
--- NOTE | 2022-03-14 11:18 | BH.SGPN.GN ---
Behaviors/Verbalizations/Mental Status: []Client alert and oriented, casually dressed and groomed. Eye contact good. Motor activity appropriate. Speech within normal limits. Affect congruent, mood anxious, dysthymic. Thoughts linear, logical, no signs of hallucinations or delusions. Client Response/Progress/Benefit: []Client responded well to session AEB listening attentively to peers and providing input when prompted. Client engaged and providing insight during psychoeducation on the different boundary styles. Noted she has struggles with porous boundaries with her youngest daughter as she fears pushing her away or being rejected. Client worked in a small group to identify strategies for healthy boundary setting. Client identified wanting to work on not compromising when setting a boundary in the school setting. Progress noted in self-report of improved mood stability and coping skill application. Will continue IOP tx to prevent decompensation, continue to improve overall functioning, and promote continued application of healthy coping skills. Narrative Note: []
--- NOTE | 2022-03-16 10:10 | BH.SGPN.GN ---
Behaviors/Verbalizations/Mental Status: []Pt alert and oriented, casually dressed and appropriately groomed. Eye contact good. Motor activity appropriate. Speech within normal limits. Affect congruent, mood euthymic. Thoughts linear, logical, no signs of hallucinations or delusions. Client Response/Progress/Benefit: []Pt was an engaged participant AEB providing input, listening to others, and taking notes. Participated in interactive group discussion on internal and external barriers to mental health progress. Pt described current reality as feeling optimistic about her future and is now able to manage anxiety, negative thoughts, and depression more effectively. Reported desired reality is being able to maintain gains she has made. Client shared personal barriers to desired realty include: using unhealthy coping skills, not giving self permission to feel, not eating healthy, not exercising, and isolation. Benefited from increased awareness of current barriers to progress as well as current/desired realities. Pt has made significant treatment progress and will discharge from [facility] today.
--- NOTE | 2022-03-16 14:06 | BH.MDN_ITS ---
Multi-Disciplinary Note - Note 30-min Individual Time Started:: 09:05 Date: 03/16/22 Purpose of session/treatment goals addressed:: Purpose of session was to review treatment progress, identify strategies to maintain progress, and solidify aftercare plans. Eye Contact:: Good Motor Activity:: Appropriate Appearance:: Casual Speech:: Appropriate Mood:: Euthymic Affect:: Full, Congruent Thoughts:: Linear, Logical, No evidence of hallucinations/delusions noted Staff Interventions:: discharge planning, reviewed DSM-5, other - Completed maintenance plan Client Response:: Client reported her week has been going well. Client stated she connected with a person that has similar values and interests. Client reported she is working with this person on opposing a petition that had been proposed at the [facility]. Client stated it has been helpful to have something to work on that she is passionate about and connect with another person that has similar viewpoint. Client expressed feeling bittersweet about today being her last day. Client stated she will miss IOP but recognizes she has made significant gains since starting. Client expressed significant treatment since starting IOP with improved mood stability, decreased anxiety, improve daily functioning, help to reinforce healthy coping skills, improved relationships, and able to manage stressors more effectively. Patient worked with therapist to complete maintenance plan in which she identified triggers, warning signs, self-care activities, and healthy coping skills. Risks/Concerns:: Denies current suicidal ideation, plan, and intent. Progress Toward Goals/Plan:: Per pt's DSM 5 scores at discharge, scores indicate a 100% decrease in depression, 100% in anxiety, and an overall 95% reduction in overall mental health symptoms when compared to intake DSM 5 scores. Client is made significant to her progress since starting IOP as stated above. Plan is for client to discharge from IOP today. Client has appointment with Dr. Guzman for psychiatry on May 02. Client has an appointment to see her outpatient counselor Thi through [facility] next week. Client will be starting the [facility] aftercare program on March 30. Time Stopped:: 09:35
--- NOTE | 2022-03-16 17:45 | BH.DS_ITS ---
Discharge Summary - Demographics Date of Admission:: 12/27/21 Discharge Date: 03/16/22 Presenting Problems at Admission:: The patient has history of anxiety, bipolar 2 disorder and PTSD who was referred to the [facility] IOP program by her outpatient therapist for worsening symptoms of depression and anxiety. The patient's therapist reports minimal improvement of the patient's symptoms in the last 4 months with traditional outpatient services. She feels this episode of worsening depression may have been caused by a very stressful job she had all summer. Her energy level is low and her concentration is decreased. She admits to passive thoughts of of every once in a while. Discharge Diagnoses:: 1. Bipolar 2 disorder (most recent episode depressed) F31.81. 2. Generalized anxiety disorder. 3. PTSD history Reason for Discharge:: Pt has made significant treatment progress and no longer meets criteria for IOP level of care. - Treatment Progress During Treatment & Response: Per pt's DSM 5 scores at discharge, scores indicate a 100% decrease in depression, 100% in anxiety, and an overall 95% reduction in overall mental health symptoms when compared to intake DSM 5 scores. Pt reports improved daily functioning, ability to manage stressors more effectively, increased socialization, and getting back into exercise more consistently. Pt has responded well to treatment AEB consistent attendance, using skills, and engaging in group discussions. Issues Still to be Addressed:: Reinforcement of healthy coping skills, challe nging distorted thoughts, and helping pt with accepting diagnosis and financial limitations. Discharge Recommendations/Instructions:: Pt is to start [facility] IOP on 03/23/22. Pt's outpatient therapist is currently on maternity leave, pt feels attending aftercare will help supplement until therapist is back from leave. Pt is to continue outpatient psychiatry with Dr. Guzman. Discharge Handout: Complete Discharge Handout with client on aftercare options and continuity of care.
== END 2022-03-16 12:27 | disposition home or self-care (01) ==
LOC: BHIOP 08:07
PROVIDERS: PCP Registered Nurse; Referring Provider Psychiatry & Neurology Psychiatry; Visit Provider Psychiatry & Neurology Psychiatry
DX: F31.81 Bipolar II disorder (principal); F41.1 Generalized anxiety disorder; F43.10 Post-traumatic stress disorder, unspecified; N18.9 Chronic kidney disease, unspecified; I12.9 Hypertensive chronic kidney disease with stage 1 through stage 4 chronic kidney disease, or unspecified chronic kidney disease
CPT/HCPCS: S9480; 90832; 90853

== ENCOUNTER 2022-03-30 13:00 | Outpatient (RCR) | payer MEDICARE, SELFPAY ==
--- NOTE | 2022-03-30 14:00 | BH.SGPN.GN ---
Behaviors/Verbalizations/Mental Status: []Client alert and oriented, casually dressed and groomed. Eye contact good. Motor activity appropriate. Speech within normal limits. Affect congruent, mood dysthymic, anxious. Thoughts linear, logical, no signs of hallucinations or delusions. Client Response/Progress/Benefit: []Receptive of session, reports feeling ?apprehensive? today as she is having some financial difficulties at the moment, but did well to identify skills she has been using to help cope. Skills included: sitting with the uncomfortable, acceptance, communicating with supports, and thoughts challenging to keep her mental health in a positive place. Attentive during discussion of vulnerability and benefits of practicing vulnerability. Reports connecting with reasons we avoid being vulnerable as identified by the group. Group discussed ways we avoid feeling vulnerable and how this negatively affects mental health and relationships. Appeared to benefit from group support and discussion reflecting on the positive impact vulnerability can have on mental health. Shared she could try to go to a restaurant on Sunday to watch the [employer] game, despite anxiety about sitting at a restaurant alone to practice being vulnerable in the next week. Will continue IOP aftercare to promote gains and reinforce healthy coping skills. Narrative Note: []
--- NOTE | 2022-03-30 14:04 | BH.COMM ---
Communication Note - Communication with Client Communication Note: Presented completed IOP and presents today to starting relapse prevention group which meets once weekly (1.5 hours) for 10 weeks. Case discussed with Dr. Donahue with plan to admit with dx of F31.81
--- NOTE | 2022-03-30 16:54 | BH.MTP ---
Master Treatment Plan - Patient Information Program Physician:: Dr. Pérez Primary Therapist:: Asmita March [facility] - Psychiatric Diagnoses Psychiatric Diagnoses:: 1. Bipolar 2 disorder (most recent episode depressed) F31.81 2. Generalized anxiety disorder. 3. PTSD history Diagnosis Code(s):: F31.81 - Estimated LOS Estimated LOS (in weeks):: 8 Problem/Goal #1 - Problem/Goal #1 Stated Goal:: client will maintain or see a reduction in symptoms AEB client score on the DSM 5 cross-cutting measure and improve client's daily functioning. - Objectives Objective #1 Stated Objective: Client will continue to consistently apply healthy coping skills to maintain progress made in IOP tx. Interventions: Through group therapy, client will review warning signs and triggers as well as healthy coping skills learned in IOP tx to successfully maintain gains while transitioning into outpatient therapy. Discharge Criteria: Client will have accomplished this goal when client's score on the DSM-5 cross-cutting measure has maintained or reduced over an 8 week period. Target Date: 05/25/22 Review Date: 04/27/22 Objective #2 Stated Objective: Client will learn and utilize 2-3 maintenance strategies to prevent decompensation from original IOP DSM-5 scores. Interventions: Through group therapy, client will be provided with education on healthy maintenance behaviors, relapse prevention techniques, and healthy coping strategies. Discharge Criteria: Client will have accomplished this goal when can report using at least 2 maintenance skills to prevent decompensation compared to original IOP DSM-5 scores. Target Date: 05/25/22 Review Date: 04/27/22
--- NOTE | 2022-04-06 14:00 | BH.SGPN.GN ---
Behaviors/Verbalizations/Mental Status: []Pt alert and oriented, casually dressed and groomed. Eye contact good. Motor activity appropriate. Speech within normal limits. Affect congruent, mood disappointed. Thoughts linear, logical, no signs of hallucinations or delusions. Client Response/Progress/Benefit: []Pt responded well to session AEB sharing and listening attentively to others. Pt has been consistent with her outpatient mental health appointments and medications. Pt reports she practiced vulnerability last week and it had positive and negative outcomes. Discussed that this is the risk and reward of vulnerability. Pt has been challenging her negative thoughts and practicing boundary setting to support herself. Pt participated in group discussion defining affirmations and why they are important. Pt provided insight throughout clinician?s presentation of tips for writing personal affirmations. Pt wrote own affirmations, including ?I love my perseverance and stay present and get grounded.? Pt appeared to benefit from increased knowledge of affirmation writing and increased self-awareness. Will continue aftercare treatment to reinforce healthy coping skills and promote gains. ? Narrative Note: []
--- NOTE | 2022-04-27 14:00 | BH.SGPN.GN ---
Behaviors/Verbalizations/Mental Status: []Pt alert and oriented, neatly dressed and groomed. Eye contact good. Motor activity appropriate. Speech within normal limits. Affect flat, mood depressed. Thoughts linear, logical, no signs of hallucinations or delusions. Client Response/Progress/Benefit: []Pt receptive of session, engaged throughout. Pt reports she has been taking her medications and she met with a therapist today. Pt shared she is very down this week because her cat unexpectedly over the weekend. Pt has been reaching out to support and got a massage yesterday to help with this. Receptive of discussion on personal accountability and its importance in maintaining mental health stability. Pt worked cooperatively with group to identify benefits of maintaining personal accountability. Engaged in brainstorming strategies for improving ability to hold themselves accountable. Reported wanting to work on exercising at the gym more often and pt will hold herself accountable by keeping a log. Pt seemed to benefit from support from peers and increasing understanding of personal accountability benefits and strategies. Will continue IOP aftercare group to maintain gains and prevent decompensation. Narrative Note: []
--- NOTE | 2022-04-27 15:57 | BH.MTP_ITS ---
Treatment Plan Review Date of Admission:: 03/30/22 Date of Treatment Plan Review:: 04/27/22 Admitting Diagnoses:: 1. Bipolar 2 disorder (most recent episode depressed) F31.81 2. Generalized anxiety disorder. 3. PTSD history Current Diagnoses:: 1. Bipolar 2 disorder (most recent episode depressed) F31.81 2. Generalized anxiety disorder. 3. PTSD history Patient's Response to Treatment:: Pt responding well to treatment AEB pt's consistent attendance, active engagement in group discussions, follow up with psychiatry, and reporting use of skills outside treatment environment. Pt utilizes IOP aftercare to process current stressors and identify coping strategies. Status of Current Problems and Symptoms: Ongoing stressors include maintaining progress made in IOP, financial issues, and feelings of loneliness. Pt self- reports she has moments of negative thinking and depression, but it is still manageable. Pt dealing with recent significant stressor of her cat unexpectedly dying. Pt has reached out for help and trying to use her skills to prevent self from falling into depressed symptoms. Problem #1 Problem Name:: Pt will maintain or decrease symptoms from IOP admission data. Status of Goals:: Obj 1 - complete with ongoing work encouraged- Pt has been able to maintain gains made in IOP as pt?s DSM-5 scores are 66% lower than they were at IOP admission. 80% decrease in depressive symptoms and 14% decrease in anxiety when compared to IOP admission scores. Obj 2 - complete with ongoing work encouraged. Pt has been consistently reporting thought challenging, daily goal setting, and engaging in self-care. Team Recommendations:: Recommended client continue IOP aftercare group to show maintenance of progress.
== END 2022-04-29 23:59 ==
LOC: BHOG 13:00
PROVIDERS: PCP Registered Nurse; Referring Provider Psychiatry & Neurology Psychiatry; Visit Provider Psychiatry & Neurology Psychiatry
DX: F31.81 Bipolar II disorder (principal)
CPT/HCPCS: 90853

== ENCOUNTER 2022-05-02 07:25 | Outpatient (RCR) | payer MEDICARE, SELFPAY ==
--- NOTE | 2022-05-04 14:00 | BH.SGPN.GN ---
Behaviors/Verbalizations/Mental Status: []Client alert and oriented, casual in appearance. Eye contact good.? Motor activity appropriate. Speech within normal limits. Affect congruent. Mood anxious and dysthymic. Thoughts linear, logical, no signs of hallucinations or delusions Client Response/Progress/Benefit: []Pt responded well to session AEB providing input throughout and listening attentively to others. Pt reported she has attended scheduled appointments with her outpatient counselor and psychiatrist, as well as recently referred herself to EMDR therapy as well. Reports she is taking her medications as prescribed. Identified using thought challenging, reaching out to supports, and self-compassion to help with mental health maintenance over the past week. Pt connected with self-reflection discussion and activity. Worked with group to identify the benefits of self-reflection. Seemed to benefit from identifying how to incorporate self-reflection more consistently into daily living. Identified a self-reflection goal of beginning a daily gratitude journal. Pt to continue aftercare to maintain gains and prevent decompensation. Narrative Note: []
--- NOTE | 2022-05-18 14:00 | BH.SGPN.GN ---
Behaviors/Verbalizations/Mental Status: []Client alert and oriented, casually dressed and groomed. Eye contact good. Motor activity appropriate. Speech within normal limits. Affect congruent, mood euthymic. Thoughts linear, logical, no signs of hallucinations or delusions. Client Response/Progress/Benefit: []Pt receptive of session, engaged throughout. Pt completed the aftercare self-reflection worksheet sharing they saw their interim therapist this week while their regular therapist is on leave and psychiatrist last week, they are taking medications as prescribed, and have been using exercise, art, and positive self-talk as coping skills. Receptive of discussion on healthy habits and habit formation, as well its importance in maintaining mental health stability. Pt worked cooperatively with group to identify benefits of developing and maintaining healthy habits. Engaged in brainstorming strategies for identifying and changing unhealthy habit patterns. Reported she wants to work on challenging a current unhealthy habit of going straight to bed rather than completing her nighttime care routine with completing her care routine directly after taking her meds and use habit staking as a tool to help promote this. Pt seemed to benefit from support from peers and increasing understanding of healthy habit formation benefits and strategies. Will continue aftercare tx to maintain gains and prevent decompensation. Narrative Note: []
--- NOTE | 2022-05-25 16:42 | BH.MTP_ITS ---
Treatment Plan Review Date of Admission:: 03/30/22 Date of Treatment Plan Review:: 05/25/22 Admitting Diagnoses:: 1. Bipolar 2 disorder (most recent episode depressed) F31.81 2. Generalized anxiety disorder. 3. PTSD history Current Diagnoses:: 1. Bipolar 2 disorder (most recent episode depressed) F31.81 2. Generalized anxiety disorder. 3. PTSD history Patient's Response to Treatment:: Pt responding well to treatment AEB pt's consistent attendance, active engagement in group discussions, follow up with psychiatry, and reporting use of skills outside treatment environment. Pt utilizes IOP aftercare to process current stressors and identify coping strategies. This was supposed to be pt's last day of IOP aftercare, but pt had to cancel due to work. Pt plans to discharge in May. Status of Current Problems and Symptoms: Ongoing stressors include maintaining progress made in IOP, financial issues, and feelings of loneliness. Pt self- reports she has moments of negative thinking and depression, but it is still manageable. Pt continues to cope with the loss of her cat, but pt reports she is managing well. Problem #1 Problem Name:: Pt will maintain or decrease symptoms from IOP admission data. Status of Goals:: Obj 1 - complete with ongoing work encouraged- Pt has been able to maintain gains made in IOP as pt?s DSM-5 scores are 66% lower than they were at IOP admission. 80% decrease in depressive symptoms and 14% decrease in anxiety when compared to IOP admission scores. Obj 2 - complete with ongoing work encouraged. Pt has been consistently reporting thought challenging, daily goal setting, and engaging in self-care. Team Recommendations:: Recommended client continue IOP aftercare group for one more session to show maintenance of progress.
== END 2022-05-30 23:59 ==
LOC: BHOG 07:25
PROVIDERS: PCP Registered Nurse; Referring Provider Psychiatry & Neurology Psychiatry; Visit Provider Psychiatry & Neurology Psychiatry
DX: F31.81 Bipolar II disorder (principal); F41.1 Generalized anxiety disorder; F43.10 Post-traumatic stress disorder, unspecified
CPT/HCPCS: 90853

== ENCOUNTER 2022-05-31 07:26 | Outpatient (RCR) | payer MEDICARE, SELFPAY ==
--- NOTE | 2022-06-15 14:00 | BH.SGPN.GN ---
Behaviors/Verbalizations/Mental Status: []Client alert and oriented, casually dressed and groomed. Eye contact fair to good. Motor activity appropriate. Speech within normal limits. Affect constricted, mood dysthymic and anxious. Thoughts linear, logical, no signs of hallucinations or delusions. Client Response/Progress/Benefit: []Receptive of session, reports feeling ?excited? today. Shared her outpatient counselor should be back from maternity leave this month and she will be able to begin attending regular outpatient counseling sessions again. Pt has remained consistent in attending outpatient psychiatry appointments, as well as maintaining medication compliance. Noted use of positive self-talk, taking small steps, and exercise as coping skills aiding in ongoing mental health maintenance. Engaged and attentive during discussion of vulnerability and benefits of practicing vulnerability. Shared being vulnerable has not been easy for her as she struggles with fear of embarrassment or being judged. Group discussed ways we avoid feeling vulnerable and how this negatively affects mental health and relationships. Appeared to benefit from group support and discussion reflecting on the positive impact vulnerability can have on mental health. Identified plans to challenge herself to attend an event at her [employer] as a way in which she could practice being vulnerable in the next week. Scheduled to d/c from aftercare this week and will continue with outpatient counseling to maintain gains and prevent decompensation. Narrative Note: []
--- NOTE | 2022-06-15 14:36 | BH.DS ---
Discharge Summary - Demographics Date of Admission:: 03/30/22 Discharge Date: 06/15/22 Presenting Problems at Admission:: Client discharged from IOP tx and transitioned to IOP aftercare to maintain gains client made in IOP and to reinforce healthy coping skills. At admission to IOP aftercare, client reported experiencing mild-moderate symptoms of anxiety and depression. Discharge Diagnoses:: 1. Bipolar 2 disorder (most recent episode depressed) F31.81 2. Generalized anxiety disorder. 3. PTSD history Reason for Discharge:: Client has accomplished her tx goals and will transition to traditional outpatient counseling at [facility] to continue to promote use of thought challenging, distress tolerance skills, and prevent decompensation. - Treatment Progress During Treatment & Response: Client was engaged in IOP aftercare as evidenced by client's participation in group discussions and continued attendance. Client missed some appointments, but always called to cancel. Client's DSM-5 scores decreased by an overall 71% since IOP admission. Client's anxiety decreased by 71%, and depression decreased by 100%. At discharge from IOP aftercare, client self-reported that she was experiencing less depression and anxiety. Additionally, client was reporting an improved mood, more positive thinking patterns, and getting back into activities she enjoys. Issues Still to be Addressed:: Client can benefit from ongoing outpatient counseling and medication management to promote gains and reinforce healthy coping skills. Client can continue to work on increasing self-confidence and challenging negative self-talk. Discharge Recommendations/Instructions:: Client recommended to continue seeing her outpatient therapist at [facility] and Dr. Guzman for medication management. Discharge Handout: Complete Discharge Handout with client on aftercare options and continuity of care.
== END 2022-06-16 06:49 | disposition home or self-care (01) ==
LOC: BHOG 07:26
PROVIDERS: PCP Registered Nurse; Referring Provider Psychiatry & Neurology Psychiatry; Visit Provider Psychiatry & Neurology Psychiatry
DX: F31.81 Bipolar II disorder (principal); F41.1 Generalized anxiety disorder; F43.10 Post-traumatic stress disorder, unspecified
CPT/HCPCS: 90853

== ENCOUNTER 2022-09-18 14:48 | Emergency (ER) | payer MEDICARE, SELFPAY ==
[2022-09-18 14:49] VITALS: BP 113/90; PULSE 64; RESP 16; TEMP 36.3; O2SAT 98; BMI 31.1
--- NOTE | 2022-09-18 16:07 | EX.ED.DYSGE1 ---
HPI History of Present Illness Chief Complaint: Cellulitis Informant: patient Narrative Narrative: Patient states she has chronic edema in both of her legs. She states that last week she had painful redness on both of them simultaneously, she went to urgent care and was prescribed cephalexin for 5 days, she states it went away while she was taking the medication. The last dose was maybe 4 days ago. She states the same painful rash started coming back yesterday and is worse today. She had some chills last night but did not take her temperature and it went away after an hour and she feels fine today. No obvious reason for this. [facility] Medical History Bipolar II disorder, most recent episode major depressive WANDY (generalized anxiety disorder) Generalized anxiety disorder History of post traumatic stress disorder Hypertension Hypothyroidism Home Medications levothyroxine 50 mcg tablet 25 mcg PO DAILY 04/05/16 [History Last Taken 09/15/17] lisinopril 10 mg tablet 10 mg PO DAILY 06/12/19 [History Last Taken Unknown] multivitamin 1 ea PO DAILY 06/12/19 [History Last Taken Unknown] Calcium 1 tablet PO/SL DAILY 12/28/21 [History Last Taken Unknown] amlodipine 10 mg tablet (Norvasc) 10 mg PO DAILY 12/28/21 [History Last Taken Unknown] lurasidone 120 mg tablet 120 mg PO DAILY 30 days #30 tabs 03/07/22 [Rx Last Taken Unknown] lamotrigine 150 mg tablet 300 mg PO DAILY anxiety #60 tabs 05/11/22 [Rx Last Taken Unknown] mirtazapine 45 mg tablet 45 mg PO DAILY #30 tabs 05/11/22 [Rx Last Taken Unknown] cephalexin 500 mg capsule 500 mg PO Q6 #40 CAPSULES 09/18/22 [Rx Last Taken Unknown] Allergy/AdvReac Type Severity Reaction Status Date / Time codeine AdvReac Vomiting Verified 09/18/22 14:51 Family History Mother Alzheimer's dementia Father Cancer Heart disease Surgical History History of carpal tunnel surgery of left wrist History of cholecystectomy History of hysterectomy History of parathyroidectomy Social History Smoking Status: Former smoker alcohol intake: current alcohol intake frequency: a few times a week Alcohol type: beer and wine substance use type: marijuana ROS ROS ED Constitutional Constitutional ED: Denies chills or fever(s) Cardiovascular Cardiovascular: Reports leg edema; Denies chest pain, diaphoresis, dyspnea or orthopnea Respiratory/Chest Respiratory/Chest: Denies orthopnea Musculoskeletal Musculoskeletal: Reports extremity pain; Denies neck pain Integumentary Reports rash; Denies Abrasions or wounds Neurologic Neurologic: Denies paresthesias or weakness EXAM Physical Exam Const Vital Signs: 09/18/22 14:49 Temperature 97.4 F L Temperature Source Temporal Pulse Rate 64 Respiratory Rate 16 Blood Pressure 113/90 H Blood Pressure Mean 97 Pulse Ox 98 Oxygen Delivery Method Room Air Positive well nourished and well developed General Appearance ED: well developed and NAD Neck full ROM and supple Back/Spine normal ROM and normal to inspection Extremity Extremity Narrative: Both lower extremities edematous, mild-moderate symmetric pretibial but below the knees. Tender warm erythema both lower legs, that does go all the way around but the borders are irregular not well-circumscribed. No abscess. No nidus for infection. No lymphangitis. All compartments soft and nondistended. Full range of motion of ankle and knee without difficulty. Neuro oriented x3, no focal motor deficits and no sensory deficits noted Sensorium / Orientation: alert Psych mental status grossly normal and thought process normal Skin no wounds Skin Narrative: Rash both lower legs fairly symmetric but with different specific borders, each consistent with cellulitis MDM MDM MDM Narrative Medical decision making narrative: Patient looks well her vital signs are normal she is not tachycardic/septic. Given the history I think the right thing to do is to put her back on antibiotics but treat her with an entire course of antibiotics which should be 10 days, even if the cellulitis was mild to begin with. I am giving her a dose of Ancef IM initially here in the ED. I advised her that getting cellulitis in both lower legs simultaneously is unusual and that she should follow-up with her doctor but I do not think she needs DVT testing or is an acute CHF which she does not have a history of, I think all of this can be followed up on as an outpatient, she understands and is comfortable with this plan I do not think she needs any other testing right now. Discharge Plan Triage Chief Complaint: Cellulitis ED Provider: Edison Freeman Dx/Rx/DC Orders Clinical Impression: Bilateral cellulitis of lower leg Instructions: Cellulitis Dc Prescriptions: New cephalexin [cephalexin] 500 mg capsule 500 mg PO Q6 Qty: 40 0RF No Action lamotrigine 150 mg tablet 300 mg PO DAILY Qty: 60 2RF mirtazapine 45 mg tablet 45 mg PO DAILY Qty: 30 2RF levothyroxine 50 MCG tablet 25 mcg PO DAILY multivitamin 1 EACH tablet 1 ea PO DAILY lisinopril 10 MG tablet 10 mg PO DAILY amlodipine [Norvasc] 10 mg Tablet 10 mg PO DAILY Calcium 1 tablet PO/SL DAILY lurasidone 120 mg tablet 120 mg PO DAILY 30 Days Qty: 30 2RF Primary Care Provider: Anyi Woods NP Referrals: Anyi Woods NP, [employer] [Primary Care Provider] - 3-5 Days Disposition Disposition: Home, Self Care
[2022-09-18] MEDS: Cefazolin 1 GM/5 ML Vial IM (16:32)
[2022-09-18 17:00] VITALS: BP 126/85; PULSE 52; RESP 16; O2SAT 100
== END 2022-09-18 17:01 | disposition home or self-care (01) ==
LOC: ED 16:12
PROVIDERS: Emergency Provider Emergency Medicine; PCP Registered Nurse; Visit Provider Emergency Medicine
DX: L03.116 Cellulitis of left lower limb (principal); I10 Essential (primary) hypertension; Z87.891 Personal history of nicotine dependence; L03.115 Cellulitis of right lower limb; R60.0 Localized edema
CPT/HCPCS: 96372; 99282

== ENCOUNTER 2023-03-20 01:38 | Emergency (ER) | payer MEDICARE, SELFPAY ==
[2023-03-20 01:38] VITALS: BP 115/88; PULSE 101; RESP 18; TEMP 36.6; O2SAT 98; BMI 30.7
[2023-03-20] MEDS: Metoclopramide 10 MG/2 ML Vial IV (02:08)
[2023-03-20] MEDS: 0.9% Normal Saline (1000mL) 1,000 ML 999 ML IV (02:08)
[2023-03-20 02:11] LABS: Absolute Lymphocyte Count 2.24 X10^3/uL (0.83-4.51); Absolute Neutrophil Count 6.1 X10^3/uL (2.0-7.7); Basophil# 0.02 X10^3/uL; Basophil% 0.2 % (0-1); Eosinophil# 0.29 X10^3/uL; Hematocrit 42.6 % (37-47); Hemoglobin 14.3 g/dL (12.0-15.0); Lymphocyte # 2.24 X10^3/ul (0.83-4.51); Lymphocyte % 22.9 % (19-41); Mean Corp Hgb Conc 33.6 g/dL (32-36); Mean Corpuscular Hgb 32.6 pg (27.0-32.0); Monocyte# 1.14 X10^3/uL; Monocyte% 11.6 % (0-10); NRBC Flagged by Analyzer 0 % (0-5); Neutrophil # 6.06 X10^3/uL (2.7-7.7); Neutrophil % 61.9 % (47-70); Platelet Count 343 K/mm3 (150-450); RBC Distribution Width SD 46.1 fl (35.1-43.9); Red Blood Count 4.39 M/mm3 (4.2-5.4); White Blood Count 9.8 K/mm3 (4.4-11.0)
[2023-03-20 02:28] LABS: AST(SGOT) 21 U/L (15-37); Alanine Aminotransfer ALT/SGPT 40 U/L (13-56); Albumin, Serum 3.8 g/dL (3.2-5.0); Alkaline Phosphatase 115 U/L (45-117); Anion Gap 5 (5-15); BUN 25 mg/dL (7-18); BUN/Creat Ratio 23.4 RATIO (10-20); Bilirubin, Direct 0.12 mg/dL (0.00-0.30); Calcium,Total 8.6 mg/dL (8.5-10.1); Chloride 111 mmol/L (98-107); Creatinine, Serum 1.07 mg/dL (0.55-1.02); EST Glomerular Filtration Rate 56 mL/min (>60); Est Glom Filt Rate - Afr Amer 67 mL/min (>60); Estimated Creatinine Clearance 50.94 ml/min; Globulin 3.2 g/dL (2.2-4.2); Glucose 103 mg/dL (74-106); Magnesium 2.3 mg/dL (1.6-2.6); Sodium Level 144 mmol/L (136-145)
--- NOTE | 2023-03-20 02:50 | EX.ED.DYSGE1 ---
HPI History of Present Illness Chief Complaint: Nausea/Vomiting/Diarrhea Informant: patient Narrative Narrative: Pain patient is a 57-year-old female with past medical history of bipolar disorder chronic kidney disease and generalized anxiety. She states she has been taking Mounjaro for approximately 1 month to help with weight loss. She states she is on 2.5 mg weekly. She states that ever since using it she has been having bouts of abdominal discomfort with nausea and vomiting. She states that she has been trying to ride it out and see if her body adjusts to the medication but she has not been able to do so. She states this is the point where she is having so much nausea and vomiting she is concerned about dehydration worsening her chronic kidney function and secondary to this comes into the ER for evaluation [facility] Medical History Bipolar II disorder, most recent episode major depressive WANDY (generalized anxiety disorder) Generalized anxiety disorder History of post traumatic stress disorder Hypertension Hypothyroidism Home Medications levothyroxine 50 mcg tablet 25 mcg PO DAILY 04/05/16 [History Last Taken 09/15/17] lisinopril 10 mg tablet 10 mg PO DAILY 06/12/19 [History Last Taken Unknown] multivitamin 1 ea PO DAILY 06/12/19 [History Last Taken Unknown] Calcium 1 tablet PO/SL DAILY 12/28/21 [History Last Taken Unknown] lamotrigine 150 mg tablet 300 mg (2 x 150 mg) PO DAILY anxiety #180 tabs 12/11/22 [Rx Last Taken Unknown] lurasidone 60 mg tablet 60 mg PO DAILY 90 days #90 tabs 12/11/22 [Rx Last Taken Unknown] mirtazapine 45 mg tablet 45 mg PO DAILY #90 tabs 12/11/22 [Rx Last Taken Unknown] atorvastatin 10 mg tablet 10 mg PO QHS 03/20/23 [History Last Taken Unknown] cephalexin 500 mg capsule 500 mg PO Q6 ingrown toe nail 03/20/23 [History Last Taken Unknown] metoclopramide HCl 10 mg tablet (Reglan) 10 mg PO 4X/DAY PRN PRN nausea and vomiting #40 tabs 03/20/23 [Rx Last Taken Unknown] ropinirole 0.25 mg tablet 0.25 mg PO QHS 03/20/23 [History Last Taken Unknown] tirzepatide 2.5 mg/0.5 mL subcutaneous pen injector (Mounjaro) 2.5 mg subcut QWEEK 03/20/23 [History Last Taken Unknown] tirzepatide 5 mg/0.5 mL subcutaneous pen injector (Mounjaro) mg subcut 03/20/23 [History Last Taken Unknown] Allergy/AdvReac Type Severity Reaction Status Date / Time codeine AdvReac Vomiting Verified 03/20/23 01:38 Family History Mother Alzheimer's dementia Father Cancer Heart disease Surgical History History of carpal tunnel surgery of left wrist History of cholecystectomy History of hysterectomy History of parathyroidectomy Social History Smoking Status: Former smoker alcohol intake: current alcohol intake frequency: a few times a week Alcohol type: beer and wine substance use type: marijuana ROS ROS ED Constitutional Constitutional ED: Denies chills or fever(s) ENT ENT ED: Denies sore throat Cardiovascular Cardiovascular: Denies chest pain Respiratory/Chest Respiratory/Chest: Denies cough or dyspnea Gastrointestinal Gastrointestinal: Reports abdominal pain, nausea and vomiting; Denies diarrhea Genitourinary Genitourinary ED: Denies dysuria Musculoskeletal Musculoskeletal: Denies myalgias Integumentary Denies rash Neurologic Neurologic: Denies headache(s) Hematologic/Lymphatic Hematologic/Lymphatic: Denies easy bleeding or easy bruising EXAM Physical Exam Const Vital Signs: 03/20/23 01:38 Temperature 97.8 F Temperature Source Temporal Pulse Rate 101 H Respiratory Rate 18 Blood Pressure 115/88 H Blood Pressure Mean 97 Pulse Ox 98 Positive well nourished and well developed General Appearance ED: well developed; Negative for pallor HEENT HEENT Narrative: Patient's mucous membranes are dry and tacky but there is no secondary changes to suggest infection and no airway edema or compromise Eyes PERRL and EOMs intact bilaterally General Eye ED: Negative for scleral icterus Neck supple Resp normal respiratory effort and clear to auscultation bilaterally Cardio regular rate and regular rhythm Rate: other Other Details: Heart is regular rate and rhythm without murmurs rubs or gallop Radial and carotid pulses equal and symmetric GI non-distended GI Narrative: Abdomen is soft and nondistended with normal active bowel sounds. There is mild diffuse pain on palpation without voluntary guarding or rigidity. No pulsatile mass or fluid wave Auscultation: normoactive bowel sounds Palpation: soft Extremity normal to inspection Neuro oriented x3, CN's II-XII intact bilaterally and no sensory deficits noted Sensorium / Orientation: alert Motor Exam: strength 5/5 throughout Psych mental status grossly normal Skin no rashes or lesions noted Skin Narrative: Skin turgor is increased General Skin Exam: Negative for jaundice or pallor MDM MDM MDM Narrative Medical decision making narrative: Patient presented to the ER complaining of nausea and vomiting for approximately 4 weeks most likely associated with the Mounjaro medication. However his differential diagnosis is still potential for pancreatitis, bile duct stone gastroenteritis acute kidney injury or electrolyte derangement I did elect to perform basic laboratory studies. Labs revealed no clinically significant findings and after IV hydration and treatment with regular and patient had improvement of symptoms and was able to tolerate a p.o. challenge without difficulty. Therefore this time as history and exam indicate that her persistent nausea and vomiting is most likely medication induced she will be instructed to talk to her family doctor about stopping this medication and in the meantime Reglan will be provided for home to help control any further bouts of nausea and vomiting as it is helped in the ER this evening History & Record Review Discussion w/independent historian: Patient Lab Data Attestation: I reviewed the patient's lab results. Labs: Laboratory Results - last 24 hr 03/20/23 02:05 WBC 9.8 RBC 4.39 Hgb 14.3 Hct 42.6 MCV 97.0 MCH 32.6 H MCHC 33.6 RDW Std Deviation 46.1 H RDW Coeff of Roxann 13.0 Plt Count 343 MPV 9.0 Immature Gran % (Auto) 0.400 Neut % (Auto) 61.9 Lymph % (Auto) 22.9 [place] % (Auto) 11.6 H Eos % (Auto) 3.0 Baso % (Auto) 0.2 Absolute Neuts (auto) 6.1 Absolute Lymphs (auto) 2.24 Nucleated RBC % 0 Sodium 144 Potassium 4.0 Chloride 111 H Carbon Dioxide 28.0 Anion Gap 5 BUN 25 H Creatinine 1.07 H Estim Creat Clear Calc 50.94 Est GFR (MDRD) Af Amer 67 Est GFR (MDRD) Non-Af 56 L BUN/Creatinine Ratio 23.4 H Glucose 103 Calcium 8.6 Magnesium 2.3 Total Bilirubin 0.30 Direct Bilirubin 0.12 AST 21 ALT 40 Alkaline Phosphatase 115 Total Protein 7.0 Albumin 3.8 Globulin 3.2 Discharge Plan Triage Chief Complaint: Nausea/Vomiting/Diarrhea ED Provider: Gael Antonio Dx/Rx/DC Orders Clinical Impression: Nausea and vomiting, Dehydration, Bipolar disease, chronic, Renal insufficiency Instructions: ED Dehydration (Adult), ED Vomiting (Adult) Prescriptions: New metoclopramide HCl [Reglan] 10 mg tablet 10 mg PO 4X/DAY PRN PRN (Reason: nausea and vomiting) Qty: 40 0RF No Action lamotrigine 150 mg tablet 300 mg PO DAILY Qty: 180 1RF mirtazapine 45 mg tablet 45 mg PO DAILY Qty: 90 1RF lurasidone 60 mg tablet 60 mg PO DAILY 90 Days Qty: 90 1RF levothyroxine 50 MCG tablet 25 mcg PO DAILY multivitamin 1 EACH tablet 1 ea PO DAILY lisinopril 10 MG tablet 10 mg PO DAILY Calcium 1 tablet PO/SL DAILY atorvastatin 10 mg tablet 10 mg PO QHS ropinirole 0.25 mg tablet 0.25 mg PO QHS Rx Instructions: 1-2 tablets Mounjaro 2.5 mg/0.5 mL pen injector 2.5 mg SUBCUT QWEEK Mounjaro 5 mg/0.5 mL pen injector SUBCUT Patient Comments: INJECT 5 MG UNDER THE SKIN ONCE A WEEK; not started yet 03/20/23 cephalexin [cephalexin] 500 mg capsule 500 mg PO Q6 Rx Instructions: for 7 days starting 03/12/23 Primary Care Provider: Anyi Woods NP Referrals: Anyi Woods NP, DURABILITY ENGINEER-C [Primary Care Provider] - Activity Restrictions/Additional Instructions: Please talk your family doctor about stopping the Mounjaro as your history and exam indicate this is the cause of your current symptoms. Use the Reglan as prescribed to help control any further bouts of nausea and vomiting and return to the ER should you have any further concerns. Disposition Disposition: Home, Self Care
[2023-03-20 03:42] VITALS: BP 118/75; PULSE 78; RESP 16; O2SAT 97
[2023-03-20 04:17] VITALS: RESP 16
== END 2023-03-20 04:22 | disposition home or self-care (01) ==
PROVIDERS: Emergency Provider Emergency Medicine; PCP Registered Nurse; Visit Provider Emergency Medicine
DX: E86.0 Dehydration (principal); F31.9 Bipolar disorder, unspecified; Z87.891 Personal history of nicotine dependence; I12.9 Hypertensive chronic kidney disease with stage 1 through stage 4 chronic kidney disease, or unspecified chronic kidney disease; N18.9 Chronic kidney disease, unspecified; Z79.85 Long-term (current) use of injectable non-insulin antidiabetic drugs
CPT/HCPCS: 80048; 80076; 83735; 85025; 96361; 96374; 99283; J7030; A4216

== ENCOUNTER 2023-08-21 14:39 | Emergency (ER) | payer MEDICARE, SELFPAY ==
[2023-08-21 14:42] VITALS: BP 97/71; PULSE 73; RESP 18; TEMP 35.8; O2SAT 98; BMI 28.9
--- NOTE | 2023-08-21 15:33 | RAD_ITS ---
STUDY: X-RAY CHEST REASON FOR EXAM: Female, 57 years old. chest pain TECHNIQUE: Single AP portable view of the chest. COMPARISON: 04/05/2016. FINDINGS: The lungs are clear and expanded. There is no demonstrated pleural abnormality. Normal size heart. Normal mediastinum and cecelia. Normal visualized pulmonary arteries. Normal visualized aortic arch and descending thoracic aorta. Normal visualized thoracic spine. Normal visualized ribs, clavicles, and shoulders. There is no demonstrated abnormality of the visualized soft tissue structures of the upper abdomen. RAD/Chest 1 View (Portable) IMPRESSION: Normal x-ray examination of the chest. Electronically Signed: Mariano Pinto MD at 16:48 EDT ,
--- NOTE | 2023-08-21 15:33 | EKG12_ITS ---
Test Reason : SOB Blood Pressure : / mmHG Vent. Rate : 054 BPM Atrial Rate : 054 BPM P-R Int : 172 ms QRS Dur : 084 ms QT Int : 472 ms P-R-T Axes : 069 019 045 degrees QTc Int : 447 ms Sinus bradycardia Nonspecific ST abnormality Abnormal ECG Confirmed by KAL MONTAGUE, MILDRED ([id number]), industrial editor RAMON NAPIER ([id number]) on 08/27/2023 1:38:01 PM Referred By: Confirmed By:FINA BOWDEN MD
--- NOTE | 2023-08-21 15:35 | ED.VIS.DYS ---
HPI History of Present Illness Chief Complaint: Shortness of Breath Narrative Narrative: 57-year-old female past medical history of bipolar disorder, hypertension, hypercholesterolemia, presents with lightheadedness, that she has had for the last few days, worse with standing, but mainly because of her shortness of breath that she experienced today. She states that she was walking, and she usually walks a great deal if not daily, and she became very short of breath. She denies any fevers or chills, no cough. No chest pain. Regarding her lightheadedness, sometimes she states she feels dizzy but is definitely worse with standing. It is not more of a vertiginous type symptoms because room is not spinning, but over the last few days she felt nauseated as well, and vomited. She has not had headaches recently, no other symptoms. [facility] Medical History Bipolar II disorder, most recent episode major depressive WANDY (generalized anxiety disorder) Generalized anxiety disorder History of post traumatic stress disorder Hypertension Hypothyroidism Home Medications levothyroxine 50 mcg tablet 25 mcg PO DAILY 04/05/16 [History Last Taken 09/15/17] lisinopril 10 mg tablet 10 mg PO DAILY 06/12/19 [History Last Taken Unknown] multivitamin 1 ea PO DAILY 06/12/19 [History Last Taken Unknown] Calcium 1 tablet PO/SL DAILY 12/28/21 [History Last Taken Unknown] atorvastatin 10 mg tablet 10 mg PO QHS 03/20/23 [History Last Taken Unknown] ropinirole 0.25 mg tablet 0.25 mg PO QHS 03/20/23 [History Last Taken Unknown] lamotrigine 150 mg tablet 300 mg (2 x 150 mg) PO DAILY anxiety #180 tabs 06/14/23 [Rx Last Taken Unknown] lurasidone 60 mg tablet 60 mg PO DAILY 90 days #90 tabs 06/14/23 [Rx Last Taken Unknown] mirtazapine 45 mg tablet 45 mg PO DAILY #90 tabs 06/14/23 [Rx Last Taken Unknown] hydroxyzine HCl 25 mg tablet 25 - 50 mg PO QHS PRN PRN anxiety 08/21/23 [History Last Taken Unknown] pantoprazole 40 mg tablet,delayed release 40 mg PO DAILY 08/21/23 [History Last Taken Unknown] valacyclovir 500 mg tablet 500 mg PO BID 08/21/23 [History Last Taken Unknown] Allergy/AdvReac Type Severity Reaction Status Date / Time codeine AdvReac Vomiting Verified 08/21/23 14:42 Family History Mother Alzheimer's dementia Father Cancer Heart disease Surgical History History of carpal tunnel surgery of left wrist History of cholecystectomy History of hysterectomy History of parathyroidectomy Social History Smoking Status: Former smoker alcohol intake: current alcohol intake frequency: a few times a week Alcohol type: beer and wine substance use type: marijuana ROS ROS ED ROS Narrative Constitutional: No fever, no chills. HEENT: No sore throat. No neck pain. No loss of vision. No rhinorrhea. Cardiovascular: No chest pain. No palpitations. No pedal edema. Respiratory: No cough, positive dyspnea on exertion and shortness of breath. Abdominal: No abdominal pain. Positive nausea and vomiting over the last few days. Genitourinary: No dysuria. No hematuria. Musculoskeletal: No myalgias. No arthralgias. Neurologic: No headaches. Mild dizziness, but no room spinning. Positive lightheadedness with standing. Skin: No rash. No change in color. Psychiatric: No depression. No anxiety. EXAM Physical Exam Narrative Exam Narrative: Afebrile. Vital signs noted. HEENT: Normocephalic. Atraumatic. PERRL, EOMI. Neck soft and supple. No point tenderness or step off. Cardiovascular: Regular rate and rhythm. No murmurs, rubs, or gallops appreciated. Respiratory: No tachypnea. Lungs clear to auscultation bilaterally. Gastrointestinal: Abdomen soft, nontender, with normoactive bowel sounds. No rebound or guarding. Neurological: Awake. Alert. Nonfocal, nonlateralizing. Skin: No rash. Normal color. No pallor. Musculoskeletal: No pedal edema. Full range of motion extremities. Const Vital Signs: 08/21/23 14:42 08/21/23 15:58 08/21/23 16:39 Temperature 96.4 F L Temperature Source Temporal Pulse Rate 73 59 L Respiratory Rate 18 18 Respiratory Effort Blood Pressure 97/71 99/69 Blood Pressure Mean 79 79 Pulse Ox 98 99 Oxygen Delivery Method Room Air Room Air Room Air 08/21/23 17:47 08/21/23 18:47 08/21/23 19:00 Temperature Temperature Source Pulse Rate 61 Respiratory Rate 11 L Respiratory Effort Normal Non-Labored Short of Breath Blood Pressure 117/79 120/80 Blood Pressure Mean 91 93 Pulse Ox 99 Oxygen Delivery Method Room Air Room Air MDM MDM MDM Narrative Medical decision making narrative: Initially, blood pressure was 97/71. Hence, I will get orthostatics. Her lightheadedness may be more from intravascular volume depletion or orthostatic hypotension. Comprehensive workup was pursued. Patient EKG was obtained and interpreted by myself independently as sinus bradycardia 54 bpm without ectopy or acute ST changes. No STEMI. I reviewed her laboratory work and her WBC count is normal at 8.4 with hemoglobin normal at 13.7, hematocrit 41.5. Platelet count normal at 301. I do not think that she has an anemia causing her shortness of breath. D-dimer is normal at 0.36, so I feel she has been ruled out for pulmonary embolism as a cause of her shortness of breath as well. Review of her electrolyte panel shows potassium slightly low at 3.4 which I think is nonspecific, BUN of 19 and creatinine 1.22. She does have a history of chronic kidney disease. Glucose is appropriately elevated at 130 with a normal anion gap of 6. ALT and AST are within normal limits. Troponin is negative at 4 with 2-hour troponin also being 4 for a delta of 0. Chest x-ray and 1 view obtained and interpreted by myself independently shows no evidence of a pneumonia or pneumothorax. I reviewed the radiology report which confirms my independent interpretation. Repeat blood pressure has normalized after IV fluids. CT of the brain was obtained and there is no evidence of acute hemorrhage, no previous area of stroke. At this point in time, I feel she can be discharged to follow-up with her primary care provider. Return instructions to the emergency department were reviewed. Patient states she is feeling improved. I feel that she probably has more of an orthostatic lightheadedness. Disposition is discharged in stable condition. History & Record Review Discussion w/independent historian: Patient Additional record(s) reviewed:: Prior labs Lab Data Attestation: I reviewed the patient's lab results. Labs: Laboratory Results - last 24 hr 08/21/23 08/21/23 15:40 17:54 WBC 8.4 RBC 4.37 Hgb 13.7 Hct 41.5 MCV 95.0 MCH 31.4 MCHC 33.0 RDW Std Deviation 46.5 H RDW Coeff of Roxann 13.3 Plt Count 301 MPV 9.3 Immature Gran % (Auto) 0.400 Neut % (Auto) 57.8 Lymph % (Auto) 30.1 [place] % (Auto) 8.6 Eos % (Auto) 2.4 Baso % (Auto) 0.7 Absolute Neuts (auto) 4.9 Absolute Lymphs (auto) 2.52 Nucleated RBC % 0 D-Dimer Quant (PE/DVT) 0.36 Sodium 142 Potassium 3.4 L Chloride 110 H Carbon Dioxide 26.0 Anion Gap 6 BUN 19 H Creatinine 1.22 H Estim Creat Clear Calc 51.52 Est GFR (MDRD) Af Amer 58 L Est GFR (MDRD) Non-Af 48 L BUN/Creatinine Ratio 15.6 Glucose 130 H Calcium 8.7 Total Bilirubin 0.30 AST 31 ALT 38 Alkaline Phosphatase 104 Troponin I High Sens 4 4 Total Protein 6.7 Albumin 3.5 Globulin 3.2 Albumin/Globulin Ratio 1.1 Radiography Diagnostic Testing: Clinical Impression(s) from Imaging Studies Chest X-Ray 08/21/23 15:33 IMPRESSION: Normal x-ray examination of the chest. Electronically Signed: Mariano Pinto MD at 16:48 EDT Reading Location ID and State: [facility] / [place] , Service support , Brain CT 08/21/23 15:39 IMPRESSION: No change, no acute abnormality. Electronically Signed: Mariano Pinto MD at 16:26 EDT , Discharge Plan Triage Chief Complaint: Shortness of Breath ED Provider: Quirino Chairez Dx/Rx/DC Orders Clinical Impression: Orthostatic lightheadedness, Shortness of breath Instructions: ED Dizziness, Uncertain Cause, ED Dyspnea Prescriptions: No Action lamotrigine 150 mg tablet 300 mg PO DAILY Qty: 180 1RF lurasidone 60 mg tablet 60 mg PO DAILY 90 Days Qty: 90 1RF mirtazapine 45 mg tablet 45 mg PO DAILY Qty: 90 1RF levothyroxine 50 MCG tablet 25 mcg PO DAILY multivitamin 1 EACH tablet 1 ea PO DAILY lisinopril 10 MG tablet 10 mg PO DAILY Calcium 1 tablet PO/SL DAILY atorvastatin 10 mg tablet 10 mg PO QHS ropinirole 0.25 mg tablet 0.25 mg PO QHS Rx Instructions: 1-2 tablets valacyclovir 500 mg tablet 500 mg PO BID pantoprazole 40 mg tablet,delayed release (DR/EC) 40 mg PO DAILY hydroxyzine HCl 25 mg tablet 25 - 50 mg PO QHS PRN PRN (Reason: anxiety) Primary Care Provider: Anyi Woods NP Referrals: Anyi Woods NP, DRY END TESTER-C [Primary Care Provider] - 3-5 Days if not improving Disposition Disposition: Home, Self Care
--- NOTE | 2023-08-21 15:39 | CT_ITS ---
STUDY: CT BRAIN WITHOUT CONTRAST REASON FOR EXAM: Female, 57 years old. dizziness RADIATION DOSAGE (If Supplied By Facility): CTDIvol = ( 44.99 ) mGy, DLP = ( 796.11 ) mGycm TECHNIQUE: Transaxial CT imaging of the brain was performed without administration of intravenous contrast material. Individualized dose optimization techniques were used for this CT. COMPARISON: 01/17/2022 FINDINGS: Normal soft tissue structures. Normal calvarium. Normal size ventricles and extra-axial spaces for the patient''s age. Normal white matter tracts of the cerebral hemispheres. Normal basal ganglia and thalami. Normal brainstem. Normal cerebellum. Stable partially calcified 1.4 cm mass in the right cerebellar hemisphere. There is no intracranial hemorrhage. There are no findings of an acute ischemic infarction. Normal visualized paranasal sinuses. CT/Brain/Head without Contrast IMPRESSION: No change, no acute abnormality. Electronically Signed: Mariano Pinto MD at 16:26 EDT ,
[2023-08-21] MEDS: 0.9% Normal Saline (1000mL) 1,000 ML 1000 ML IV (15:48)
[2023-08-21] MEDS: 0.9% Normal Saline (1000mL) 1,000 ML 999 ML IV (15:48)
[2023-08-21 15:58] LABS: Absolute Lymphocyte Count 2.52 X10^3/uL (0.83-4.51); Absolute Neutrophil Count 4.9 X10^3/uL (2.0-7.7); Basophil# 0.06 X10^3/uL; Basophil% 0.7 % (0-1); Eosinophils% 2.4 % (0-5); Hematocrit 41.5 % (37-47); Hemoglobin 13.7 g/dL (12.0-15.0); Lymphocyte # 2.52 X10^3/ul (0.83-4.51); Lymphocyte % 30.1 % (19-41); Mean Corpuscular Hgb 31.4 pg (27.0-32.0); Mean Platelet Vol. 9.3 fl (6.2-12.0); Monocyte# 0.72 X10^3/uL; Monocyte% 8.6 % (0-10); NRBC Flagged by Analyzer 0 % (0-5); Neutrophil # 4.85 X10^3/uL (2.7-7.7); Neutrophil % 57.8 % (47-70); Platelet Count 301 K/mm3 (150-450); RBC Distribution Width CV 13.3 % (11.6-14.6); RBC Distribution Width SD 46.5 fl (35.1-43.9); Red Blood Count 4.37 M/mm3 (4.2-5.4); White Blood Count 8.4 K/mm3 (4.4-11.0)
[2023-08-21 16:18] LABS: D-Dimer Quantitative (DVT/PE) 0.36 FEU/ug/m (0.27-0.49)
[2023-08-21 16:30] LABS: ALB/GLOB Ratio 1.1 RATIO (0.9-2.4); AST(SGOT) 31 U/L (15-37); Alanine Aminotransfer ALT/SGPT 38 U/L (13-56); Albumin, Serum 3.5 g/dL (3.2-5.0); Alkaline Phosphatase 104 U/L (45-117); Anion Gap 6 (5-15); BUN 19 mg/dL (7-18); BUN/Creat Ratio 15.6 RATIO (10-20); Calcium,Total 8.7 mg/dL (8.5-10.1); Chloride 110 mmol/L (98-107); Creatinine, Serum 1.22 mg/dL (0.55-1.02); EST Glomerular Filtration Rate 48 mL/min (>60); Est Glom Filt Rate - Afr Amer 58 mL/min (>60); Estimated Creatinine Clearance 51.52 ml/min; Globulin 3.2 g/dL (2.2-4.2); Glucose 130 mg/dL (74-106); Potassium 3.4 mmol/L (3.5-5.1); Protein, Total 6.7 g/dL (6.4-8.2); Sodium Level 142 mmol/L (136-145); Troponin-I HS (w/2H Reflex) 4 pg/mL (3.0-54.0)
[2023-08-21 16:39] VITALS: BP 99/69; PULSE 59; RESP 18; O2SAT 99
[2023-08-21 17:47] VITALS: BP 117/79
[2023-08-21 17:55] LABS: Reflex Troponin-HS? (from REC) Y
[2023-08-21 19:00] VITALS: BP 120/80; PULSE 61; RESP 11; O2SAT 99
[2023-08-21 19:03] LABS: Troponin-I HS 4 pg/mL (3.0-54.0)
[2023-08-21 19:50] VITALS: BP 127/83; PULSE 82; RESP 18; TEMP 36.8; O2SAT 99
== END 2023-08-21 19:51 | disposition home or self-care (01) ==
PROVIDERS: Emergency Provider Emergency Medicine; PCP Registered Nurse; Visit Provider Emergency Medicine
DX: R42 Dizziness and giddiness (principal); F31.9 Bipolar disorder, unspecified; R06.02 Shortness of breath; Z87.891 Personal history of nicotine dependence; E78.00 Pure hypercholesterolemia, unspecified; I12.9 Hypertensive chronic kidney disease with stage 1 through stage 4 chronic kidney disease, or unspecified chronic kidney disease; N18.9 Chronic kidney disease, unspecified
CPT/HCPCS: 70450; 71045; 80053; 84484; 85025; 85379; 93005; 96360; 96361; 99284; J7030; A4216

== ENCOUNTER 2023-09-11 13:37 | Emergency (ER) | payer MEDICARE, SELFPAY ==
[2023-09-11 13:38] VITALS: BP 139/75; PULSE 55; RESP 18; TEMP 36.1; O2SAT 100; BMI 28.1
[2023-09-11 15:37] VITALS: BP 124/76; PULSE 69; RESP 16; O2SAT 98
--- NOTE | 2023-09-11 16:11 | CT_ITS ---
STUDY: CT ABDOMEN AND PELVIS WITH CONTRAST REASON FOR EXAM: Female, 57 years old. intractable vomiting RADIATION DOSAGE (If Supplied By Facility): CTDIvol = ( 23.59 ) mGy, DLP = ( 866.54 ) mGycm TECHNIQUE: Transaxial images were obtained from the dome of the diaphragm to the symphysis pubis without oral contrast. Oral and amp; IV Gastrografin and amp; 100mL Isovue-370 was administered. Sagittal and coronal images were reconstructed. Individualized dose optimization techniques were used for this CT. COMPARISON: None. FINDINGS: The visualized lung bases are unremarkable. The visualized portions of the heart are within normal limits. Liver is normal size and homogeneous attenuation. No bile duct dilatation There is postop change status post cholecystectomy . Normal spleen. Normal pancreas. Normal bilateral adrenal glands. Normal right kidney. Normal left kidney. Normal visualized stomach. Normal small intestine. There are scattered tiny hyperattenuated particles seen throughout the colon of uncertain etiology. This could be due to ingested Pepto-Bismol or other pharmaceutical. PICA although less likely can have similar appearance. No evidence for acute appendicitis. Minor calcification the aorta without evidence for aneurysm. Normal inferior vena cava. Normal retroperitoneum. Normal urinary bladder. Uterus not visualized status post hysterectomy. There is fat-containing left inguinal hernia without stranding in the fat.. Lumbar spine demonstrates mild degenerative change. CT/Abdomen/Pelvis WITH Contrast IMPRESSION: No evidence for small bowel obstruction status post post cholecystectomy and hysterectomy Other findings as above Electronically Signed: Rakesh Huang MD at 18:46 EDT ,
--- NOTE | 2023-09-11 16:11 | EX.ED.DYSGE1 ---
HPI History of Present Illness Chief Complaint: Nausea/Vomiting Detail of Chief Complaint: Vomiting and nausea Informant: patient Narrative Narrative: Patient presents with nausea and vomiting has been ongoing for about 6 weeks. Patient states that she is thrown up about 3-4 times a day. Feels nauseous often. Denies diarrhea. Denies fever. Denies significant abdominal pain. She has a history of chronic kidney disease and is worried she might be dehydrated. She denies feeling lightheaded or dizzy. Patient currently on Protonix. She does have medical marijuana that she takes 2 puffs of at night to help her sleep. She denies headache. Patient has been taking Zofran at home but does not seem to be helping her. 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 [facility] Medical History Bipolar II disorder, most recent episode major depressive WANDY (generalized anxiety disorder) Generalized anxiety disorder History of post traumatic stress disorder Hypertension Hypothyroidism Home Medications ?Medication ?Instructions ?Recorded ?Last Taken ?Type levothyroxine 50 mcg tablet 25 mcg PO DAILY 04/05/16 09/15/17 History lisinopril 10 mg tablet 10 mg PO DAILY 06/12/19 Unknown History multivitamin 1 ea PO DAILY 06/12/19 Unknown History Calcium 1 tablet PO/SL DAILY 12/28/21 Unknown History atorvastatin 10 mg tablet 10 mg PO QHS 03/20/23 Unknown History ropinirole 0.25 mg tablet 0.25 mg PO QHS 03/20/23 Unknown History lamotrigine 150 mg tablet 300 mg (2 x 150 mg) PO DAILY 06/14/23 Unknown Rx anxiety #180 tabs lurasidone 60 mg tablet 60 mg PO DAILY 90 days #90 tabs 06/14/23 Unknown Rx mirtazapine 45 mg tablet 45 mg PO DAILY #90 tabs 06/14/23 Unknown Rx hydroxyzine HCl 25 mg tablet 25 - 50 mg PO QHS PRN PRN anxiety 08/21/23 Unknown History pantoprazole 40 mg tablet,delayed 40 mg PO DAILY 08/21/23 Unknown History release valacyclovir 500 mg tablet 500 mg PO BID 08/21/23 Unknown History promethazine 25 mg rectal 25 mg MD Q4H PRN nausea and 09/11/23 Unknown Rx suppository vomiting #12 ea promethazine 25 mg tablet 25 mg PO Q4H PRN nausea and 09/11/23 Unknown Rx vomiting #14 tabs Allergy/AdvReac Type Severity Reaction Status Date / Time codeine AdvReac Vomiting Verified 09/11/23 13:39 Family History Mother Alzheimer's dementia Father Cancer Heart disease Surgical History History of carpal tunnel surgery of left wrist History of cholecystectomy History of hysterectomy History of parathyroidectomy Social History Smoking Status: Former smoker alcohol intake: current alcohol intake frequency: a few times a week Alcohol type: beer and wine substance use type: marijuana ROS ROS ED Review of Systems ROS Unobtainable: other Constitutional Constitutional ED: Reports lethargy; Denies chills, fever(s), sweats or weight loss Eyes Eyes: Denies blurry vision, change in vision or diplopia ENT ENT ED: Denies rhinorrhea or sore throat Cardiovascular Cardiovascular: Denies chest pain, orthopnea or racing heartbeat Respiratory/Chest Respiratory/Chest: Denies cough, dyspnea, dyspnea on exertion, orthopnea or sputum Gastrointestinal Gastrointestinal: Reports nausea and vomiting; Denies abdominal pain or diarrhea Genitourinary Genitourinary ED: Denies dysuria, hematuria or urinary frequency Musculoskeletal Musculoskeletal: Denies arthralgias, back pain, myalgias or neck pain Integumentary Denies abscess, Abrasions or rash Neurologic Neurologic: Denies headache(s) or weakness Psychiatric Psychiatric: Denies anxiety, depression or suicidal thoughts Endocrine Endocrinology: Denies polydipsia, polyphagia or polyuria Hematologic/Lymphatic Hematologic/Lymphatic: Denies easy bleeding, easy bruising or lymphadenopathy Allergic/Immunologic Allergic/Immunologic ED: Denies mouth swelling, tongue swelling or urticaria EXAM Physical Exam Const Vital Signs: 09/11/23 13:38 09/11/23 15:37 09/11/23 17:00 Temperature 96.9 F L Temperature Source Temporal Pulse Rate 55 L 69 74 Respiratory Rate 18 16 14 Blood Pressure 139/75 H 124/76 H 132/84 H Blood Pressure Mean 96 92 100 Pulse Ox 100 98 97 Oxygen Delivery Method Room Air Room Air Room Air Positive well nourished and well developed General Appearance ED: well developed and NAD HEENT Reports TM's clear and moist mucous membranes normocephalic and atraumatic; Negative for trauma or tenderness Tympanic Membrane ED: Yes TM's clear Eyes PERRL and EOMs intact bilaterally General Eye ED: Negative for pale conjunctiva or scleral icterus Neck no lymphadenopathy, supple and no JVD General: Negative for tenderness Chest Wall inspection of chest normal and palpation of chest normal Chest: Negative for tenderness Resp normal respiratory effort and clear to auscultation bilaterally Effort and Inspection: Negative for respiratory distress or pain with movement Auscultation: Negative for rhonchi, wheezes or diminished lung sounds Cardio regular rate, regular rhythm, S1 normal heart sound, S2 normal heart sound and no murmurs Peripheral Pulses: pulses 2+ throughout GI normal to inspection, nondistended, normoactive bowel sounds, soft to palpation, non-tender, non-distended and no masses Back/Spine no CVA tenderness and no thoracic nor lumbar tenderness Extremity normal to inspection General Extremety ED: Negative for edema General Extremity: Negative for edema Neuro oriented x3, CN's II-XII intact bilaterally, no sensory deficits noted and gait normal Sensorium / Orientation: awake, alert, oriented to person, oriented to place and oriented to time Motor Exam: strength 5/5 throughout and strength abnormal Psych mental status grossly normal Skin no rashes or lesions noted and no wounds MDM MDM MDM Narrative Medical decision making narrative: Patient presents with nausea and vomiting for the last 6 weeks. She been trying Zofran without much relief. She is on pantoprazole. Denies headaches or significant abdominal pain. IV line established. CBC with differential obtained showed a white count of 8.8 with hemoglobin 15 and platelet count of 327. Chemistries unremarkable. BUN 15 creatinine 1.06. Lipase normal at 36. EKG obtained arrival shows sinus rhythm with ventricular rate of [address] changes. Troponin was 4. I did obtain a CT scan of the abdomen pelvis with IV and p.o. contrast given her nausea and vomiting for 6 weeks to evaluate further. This was read by radiology as no evidence of acute disease process or bowel obstruction or other pathology. She was noted to be status postcholecystectomy and hysterectomy. While in department she did receive Reglan 10 mg IV and did feel improved but her nausea started to come back. She remembered that her physician told her not to use Reglan because it may interfere with her psych meds. I did give her 1 dose of Compazine and will write her prescription for Phenergan for home. Lab Data Attestation: I reviewed the patient's lab results. Labs: Laboratory Results - last 24 hr 09/11/23 16:25 WBC 8.8 RBC 4.81 Hgb 15.3 H Hct 46.7 MCV 97.1 MCH 31.8 MCHC 32.8 RDW Std Deviation 49.1 H RDW Coeff of Roxann 13.7 Plt Count 327 MPV 9.6 Immature Gran % (Auto) 0.300 Neut % (Auto) 68.4 Lymph % (Auto) 23.5 [place] % (Auto) 6.4 Eos % (Auto) 0.8 Baso % (Auto) 0.6 Absolute Neuts (auto) 6.0 Absolute Lymphs (auto) 2.06 Nucleated RBC % 0 Sodium 140 Potassium 3.9 Chloride 107 Carbon Dioxide 27.0 Anion Gap 6 BUN 15 Creatinine 1.06 H Estim Creat Clear Calc 58.57 Est GFR (MDRD) Af Amer 68 Est GFR (MDRD) Non-Af 56 L BUN/Creatinine Ratio 14.2 Glucose 108 H Calcium 9.7 Troponin I High Sens 4 Lipase 36 Radiography Diagnostic Testing: Clinical Impression(s) from Imaging Studies Abdomen/Pelvis CT 09/11/23 16:11 IMPRESSION: No evidence for small bowel obstruction status post post cholecystectomy and hysterectomy Other findings as above Electronically Signed: Rakesh Huang MD at 18:46 EDT , Discharge Plan Triage Chief Complaint: Nausea/Vomiting ED Provider: Sathya Dao Dx/Rx/DC Orders Clinical Impression: Nausea & vomiting Instructions: ED Vomiting (Adult) Prescriptions: New promethazine 25 mg tablet 25 mg PO Q4H PRN (Reason: nausea and vomiting) Qty: 14 0RF promethazine 25 mg suppository 25 mg MD Q4H PRN (Reason: nausea and vomiting) Qty: 12 0RF No Action lamotrigine 150 mg tablet 300 mg PO DAILY Qty: 180 1RF lurasidone 60 mg tablet 60 mg PO DAILY 90 Days Qty: 90 1RF mirtazapine 45 mg tablet 45 mg PO DAILY Qty: 90 1RF levothyroxine 50 MCG tablet 25 mcg PO DAILY multivitamin 1 EACH tablet 1 ea PO DAILY lisinopril 10 MG tablet 10 mg PO DAILY Calcium 1 tablet PO/SL DAILY atorvastatin 10 mg tablet 10 mg PO QHS ropinirole 0.25 mg tablet 0.25 mg PO QHS Rx Instructions: 1-2 tablets valacyclovir 500 mg tablet 500 mg PO BID pantoprazole 40 mg tablet,delayed release (DR/EC) 40 mg PO DAILY hydroxyzine HCl 25 mg tablet 25 - 50 mg PO QHS PRN PRN (Reason: anxiety) Primary Care Provider: Anyi Woods NP Referrals: Anyi Woods NP, LUMBER INSPECTOR-C [Primary Care Provider] - Print Language: Senegalese Disposition Disposition: Home, Self Care
[2023-09-11] MEDS: 0.9% Normal Saline (1000mL) 1,000 ML 1000 ML IV (16:23)
[2023-09-11] MEDS: Metoclopramide 10 MG/2 ML Vial IV (16:25)
[2023-09-11 16:49] LABS: Absolute Lymphocyte Count 2.06 X10^3/uL (0.83-4.51); Basophil# 0.05 X10^3/uL; Basophil% 0.6 % (0-1); Eosinophil# 0.07 X10^3/uL; Eosinophils% 0.8 % (0-5); Hematocrit 46.7 % (37-47); Hemoglobin 15.3 g/dL (12.0-15.0); Lymphocyte # 2.06 X10^3/ul (0.83-4.51); Lymphocyte % 23.5 % (19-41); Mean Corp Hgb Conc 32.8 g/dL (32-36); Mean Corpuscular Hgb 31.8 pg (27.0-32.0); Mean Corpuscular Volume 97.1 fL (81-99); Mean Platelet Vol. 9.6 fl (6.2-12.0); Monocyte# 0.56 X10^3/uL; Monocyte% 6.4 % (0-10); NRBC Flagged by Analyzer 0 % (0-5); Neutrophil # 5.98 X10^3/uL (2.7-7.7); Neutrophil % 68.4 % (47-70); Platelet Count 327 K/mm3 (150-450); RBC Distribution Width CV 13.7 % (11.6-14.6); RBC Distribution Width SD 49.1 fl (35.1-43.9); Red Blood Count 4.81 M/mm3 (4.2-5.4); White Blood Count 8.8 K/mm3 (4.4-11.0)
[2023-09-11 16:58] LABS: Anion Gap 6 (5-15); BUN 15 mg/dL (7-18); BUN/Creat Ratio 14.2 RATIO (10-20); Calcium,Total 9.7 mg/dL (8.5-10.1); Chloride 107 mmol/L (98-107); Creatinine, Serum 1.06 mg/dL (0.55-1.02); EST Glomerular Filtration Rate 56 mL/min (>60); Est Glom Filt Rate - Afr Amer 68 mL/min (>60); Estimated Creatinine Clearance 58.57 ml/min; Glucose 108 mg/dL (74-106); Lipase 36 U/L (13-75); Potassium 3.9 mmol/L (3.5-5.1); Sodium Level 140 mmol/L (136-145); Troponin-I HS 4 pg/mL (3.0-54.0)
[2023-09-11 17:00] VITALS: BP 132/84; PULSE 74; RESP 14; O2SAT 97
[2023-09-11] MEDS: proCHLORPERazine 10 MG/2 ML Vial IV (19:30)
[2023-09-11 19:35] VITALS: BP 156/68; PULSE 94; RESP 17; TEMP 36.7; O2SAT 97
== END 2023-09-11 19:39 | disposition home or self-care (01) ==
PROVIDERS: Emergency Provider Emergency Medicine; PCP Registered Nurse; Visit Provider Emergency Medicine
DX: R11.2 Nausea with vomiting, unspecified (principal); Z87.891 Personal history of nicotine dependence; I12.9 Hypertensive chronic kidney disease with stage 1 through stage 4 chronic kidney disease, or unspecified chronic kidney disease; N18.9 Chronic kidney disease, unspecified; Z79.899 Other long term (current) drug therapy
CPT/HCPCS: 74177; 80048; 83690; 84484; 85025; 93005; 96361; 96374; 96375; 99284; J7030; Q9967; A4216

== ENCOUNTER 2024-08-20 15:15 | Emergency (ER) | payer MEDICARE, SELFPAY ==
[2024-08-20] VITALS (7 sets, daily range): BP systolic 101–121; BP diastolic 61–83; PULSE 60–78; RESP 12–20; TEMP 36.3–36.6; O2SAT 96–100; BMI 29.9
[2024-08-20 15:52] LABS: Absolute Neutrophil Count 4.2 X10^3/uL (2.0-7.7); Basophil# 0.08 X10^3/uL; Eosinophil# 0.29 X10^3/uL; Eosinophils% 3.7 % (0-5); Hematocrit 40.6 % (37-47); Lymphocyte % 32.8 % (19-41); Mean Corp Hgb Conc 34.5 g/dL (32-36); Mean Corpuscular Hgb 33.6 pg (27.0-32.0); Mean Corpuscular Volume 97.4 fL (81-99); Mean Platelet Vol. 9.2 fl (6.2-12.0); Monocyte% 8.8 % (0-10); NRBC Flagged by Analyzer 0 % (0-5); Neutrophil # 4.23 X10^3/uL (2.7-7.7); Neutrophil % 53.4 % (47-70); Platelet Count 302 K/mm3 (150-450); RBC Distribution Width CV 13.1 % (11.6-14.6); RBC Distribution Width SD 47.1 fl (35.1-43.9); Red Blood Count 4.17 M/mm3 (4.2-5.4); White Blood Count 7.9 K/mm3 (4.4-11.0)
[2024-08-20 16:15] LABS: Anion Gap 14 (5-15); BUN 20 mg/dL (4-19); BUN/Creat Ratio 20.7 RATIO (10-20); Calcium,Total 9.5 mg/dL (7.6-11.0); Carbon Dioxide 21.2 mmol/L (21.0-32.0); Chloride 104 mmol/L (98-108); Creatinine, Serum 0.99 mg/dL (0.70-1.20); EST Glomerular Filtration Rate 66 (>60); Estimated Creatinine Clearance 63.78 ml/min (50-250); Glucose 96 mg/dL (70-99); Sodium Level 139 mmol/L (133-145)
--- NOTE | 2024-08-20 16:47 | ED.VIS.DYS ---
HPI History of Present Illness Chief Complaint: Shortness of Breath Narrative Narrative: Chief complaint and HPI: Episodic shortness of breath. 58-year-old female with past medical history of anxiety, bipolar disorder, HTN presents for evaluation of episodic dyspnea. Patient states for the past several weeks she has been having episodic dyspnea. She states at times it becomes difficult for her to speak secondary to the shortness of breath she states it is short-lived as it quickly resolves. Patient does endorse vaping marijuana daily at night. 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 She states she developed some mild back pain and lightheadedness with the episode. All symptoms have since resolved. She denies any fever, chills, URI symptoms, chest pain, abdominal pain, nausea, vomiting. Denies a history of DVT/PE, blood clotting disorder, recent trauma or surgery, exogenous estrogen use, unilateral leg swelling, known malignancy, travel. Review of systems: See HPI Medications: As listed on the chart Allergies: As listed on the chart PFSH: Per chart Vital signs: As listed on the chart. Reviewed. Physical exam: Gen: A&O x3, NAD Head: Normocephalic, atraumatic Eyes: No sclera icterus, conjunctiva clear ENT: Moist mucous membranes Neck: Trachea midline, No JVD CV: RRR, no murmurs, no peripheral edema Resp: Lungs CTA BL, no w/r/c GI: Abd soft, non-distended, non-tender, no r/r/g Musc: Full ROM, no deformity Skin: Warm, dry Neuro: Alert, oriented, grossly intact, sensation intact Psych: Cooperative, appropriate mood and affect [facility] History WANDY (generalized anxiety disorder) Hypertension History of post traumatic stress disorder Generalized anxiety disorder Bipolar II disorder, most recent episode major depressive Hypothyroidism Home Medications ?Medication ?Instructions ?Recorded ?Last Taken ?Type multivitamin 1 ea PO DAILY 06/12/19 08/20/24 History atorvastatin 10 mg tablet 10 mg PO QHS 03/20/23 08/19/24 History ropinirole 0.25 mg tablet 0.5 mg PO QHS 03/20/23 08/19/24 History hydroxyzine HCl 25 mg tablet 25 - 50 mg PO QHS PRN anxiety 08/21/23 08/19/24 History pantoprazole 40 mg tablet,delayed 40 mg PO DAILY 08/21/23 08/19/24 History release valacyclovir 500 mg tablet 500 mg PO DAILY 08/21/23 08/20/24 History propranolol 20 mg tablet 20 mg PO BID PRN anxiety #60 tabs 04/15/24 Unknown Rx mirtazapine 45 mg tablet 45 mg PO DAILY #90 tabs 07/25/24 08/19/24 Rx dulaglutide 0.75 mg/0.5 mL 0.75 mg subcut QWEEK 08/06/24 08/15/24 History subcutaneous pen injector (Trulicity) lamotrigine 150 mg tablet 300 mg (2 x 150 mg) PO DAILY 08/06/24 08/19/24 Rx anxiety 90 days #180 tabs lurasidone 60 mg tablet 60 mg PO DAILY 90 days #90 tabs 08/06/24 08/19/24 Rx calcium carbonate (Calcium 600) 600 mg PO DAILY 08/20/24 08/20/24 History levothyroxine 25 mcg tablet 25 mcg PO DAILY 08/20/24 08/20/24 History (Synthroid) lisinopril 20 mg tablet 20 mg PO DAILY 08/20/24 08/20/24 History metformin 500 mg tablet,extended 1,000 mg PO QPM 08/20/24 08/19/24 History release 24 hr Allergy/AdvReac Type Severity Reaction Status Date / Time quetiapine (From Seroquel) AdvReac Intermediate hallucinati Verified 08/20/24 15:17 ons aripiprazole (From Abilify) AdvReac Mild weight gain Verified 08/20/24 15:17 codeine AdvReac Vomiting Verified 08/20/24 15:17 Family History Mother Alzheimer's dementia Father Cancer Heart disease Surgical History History of carpal tunnel surgery of left wrist History of parathyroidectomy History of hysterectomy History of cholecystectomy Social History Smoking Status: Former smoker alcohol intake: current alcohol intake frequency: a few times a week Alcohol type: beer and wine substance use type: marijuana EXAM Physical Exam Const Vital Signs: 08/20/24 15:15 08/20/24 16:15 08/20/24 16:23 Temperature 98 F Temperature Source Oral Pulse Rate 78 66 Pulse Rate [Lying] Pulse Rate [Sitting (for 1 minute prior to obtaining)] Pulse Rate [Standing (for 1 minute prior to obtaining)] Respiratory Rate 18 12 Respiratory Effort Respiratory Depth Respiratory Pattern Blood Pressure 106/76 101/61 Blood Pressure [Lying] Blood Pressure [Sitting (for 1 minute prior to obtaining)] Blood Pressure [Standing (for 1 minute prior to obtaining)] Blood Pressure Mean 86 74 Blood Pressure Mean [Lying] Blood Pressure Mean [Sitting (for 1 minute prior to obtaining)] Blood Pressure Mean [Standing (for 1 minute prior to obtaining)] Pulse Ox 98 97 Oxygen Delivery Method Room Air Room Air Room Air 08/20/24 16:23 08/20/24 16:23 08/20/24 17:06 Temperature Temperature Source Pulse Rate Pulse Rate [Lying] 62 Pulse Rate [Sitting (for 1 minute prior to obtaining)] 60 Pulse Rate [Standing (for 1 minute prior to obtaining)] 70 Respiratory Rate 17 Respiratory Effort Short of Breath Respiratory Depth Normal Respiratory Pattern Normal Blood Pressure Blood Pressure [Lying] 107/74 Blood Pressure [Sitting (for 1 minute prior to obtaining)] 111/73 Blood Pressure [Standing (for 1 minute prior to obtaining)] 109/77 Blood Pressure Mean Blood Pressure Mean [Lying] 85 Blood Pressure Mean [Sitting (for 1 minute prior to obtaining)] 85 Blood Pressure Mean [Standing (for 1 minute prior to obtaining)] 87 Pulse Ox 96 Oxygen Delivery Method Room Air Room Air 08/20/24 18:00 08/20/24 19:00 Temperature Temperature Source Pulse Rate 64 73 Pulse Rate [Lying] Pulse Rate [Sitting (for 1 minute prior to obtaining)] Pulse Rate [Standing (for 1 minute prior to obtaining)] Respiratory Rate 20 H 17 Respiratory Effort Respiratory Depth Respiratory Pattern Blood Pressure 109/74 121/80 H Blood Pressure [Lying] Blood Pressure [Sitting (for 1 minute prior to obtaining)] Blood Pressure [Standing (for 1 minute prior to obtaining)] Blood Pressure Mean 85 93 Blood Pressure Mean [Lying] Blood Pressure Mean [Sitting (for 1 minute prior to obtaining)] Blood Pressure Mean [Standing (for 1 minute prior to obtaining)] Pulse Ox 97 97 Oxygen Delivery Method Room Air Room Air MDM MDM MDM Narrative Medical decision making narrative: 58-year-old female with past medical history of anxiety, bipolar disorder, HTN presents for evaluation of episodic dyspnea. Currently asymptomatic. Developed shortness of breath earlier today with some mild back pain and lightheadedness. On presentation, vitals are stable. No acute distress. Physical exam unremarkable. Differential diagnosis includes but is not limited to anxiety reaction, anemia, electrolyte abnormality, ACS, PE, orthostatic hypotension, UTI, marijuana abuse. NS bolus. With cardiac/respiratory workup. Orthostatic vital signs negative per blood pressure and heart rate however patient endorsed lightheadedness with change in position. EKG and chest x-ray reviewed see below. CBC without leukocytosis or anemia. D-dimer unremarkable. BMP relatively unremarkable. BNP unremarkable. Troponin x 2 unremarkable. UA negative for UTI. At this point in time, no clear etiology for patient's symptoms. On reevaluation, patient is currently asymptomatic. She is able to ambulate to the restroom without difficulty. Patient was updated of all her results and the plan for discharge home. Return precautions explained. Follow-up with PCP. She confirmed understanding of the plan. EKG: Interpreted by me/EM physician: EKG shows normal sinus rhythm with a sinus arrhythmia. No ST elevation. Heart rate 72. Diagnostic: Interpreted by me/EM physician: Chest x-ray without pneumonia, effusion, cardiomegaly, pneumothorax Impression: 1. Episodic shortness of breath 2. Episodic lightheadedness Lab Data Labs: Laboratory Results - last 24 hr 08/20/24 08/20/24 08/20/24 15:42 16:58 18:05 WBC 7.9 RBC 4.17 L Hgb 14.0 Hct 40.6 MCV 97.4 MCH 33.6 H MCHC 34.5 RDW Std Deviation 47.1 H RDW Coeff of Roxann 13.1 Plt Count 302 MPV 9.2 Immature Gran % (Auto) 0.300 Neut % (Auto) 53.4 Lymph % (Auto) 32.8 [place] % (Auto) 8.8 Eos % (Auto) 3.7 Baso % (Auto) 1.0 Absolute Neuts (auto) 4.2 Absolute Lymphs (auto) 2.60 Nucleated RBC % 0 D-Dimer Quant (PE/DVT) 0.27 Sodium 139 Potassium 4.0 Chloride 104 Carbon Dioxide 21.2 Anion Gap 14 BUN 20 H Creatinine 0.99 Estim Creat Clear Calc 63.78 Est GFR (MDRD) Non-Af 66 BUN/Creatinine Ratio 20.7 H Glucose 96 Calcium 9.5 Troponin T High Sens < 6 Troponin T Hi Sens 2 Hr NT pro BNP II < 36 Urine Color Straw Urine Clarity Clear Urine pH 7.0 Ur Specific [place] 1.010 Urine Protein TNP Urine Glucose (UA) Normal Urine Ketones Negative Urine Occult Blood Negative Urine Nitrite Negative Urine Bilirubin Negative Urine Urobilinogen Normal Ur Leukocyte Esterase Negative Urine RBC 0 SEEN Urine WBC 0-5 SEEN Ur Squamous Epith Cells 0-5 SEEN Urine Bacteria 0 SEEN Urine Mucus 0 SEEN U Random Total Protein < 6.0 08/20/24 18:19 WBC RBC Hgb Hct MCV MCH MCHC RDW Std Deviation RDW Coeff of Roxann Plt Count MPV Immature Gran % (Auto) Neut % (Auto) Lymph % (Auto) [place] % (Auto) Eos % (Auto) Baso % (Auto) Absolute Neuts (auto) Absolute Lymphs (auto) Nucleated RBC % D-Dimer Quant (PE/DVT) Sodium Potassium Chloride Carbon Dioxide Anion Gap BUN Creatinine Estim Creat Clear Calc Est GFR (MDRD) Non-Af BUN/Creatinine Ratio Glucose Calcium Troponin T High Sens Troponin T Hi Sens 2 Hr < 6 NT pro BNP II Urine Color Urine Clarity Urine pH Ur Specific [place] Urine Protein Urine Glucose (UA) Urine Ketones Urine Occult Blood Urine Nitrite Urine Bilirubin Urine Urobilinogen Ur Leukocyte Esterase Urine RBC Urine WBC Ur Squamous Epith Cells Urine Bacteria Urine Mucus U Random Total Protein Radiography Diagnostic Testing: Clinical Impression(s) from Imaging Studies Chest X-Ray 08/20/24 17:10 IMPRESSION: No acute airspace abnormality. Reading Location: [facility] Discharge Plan Triage Chief Complaint: Shortness of Breath ED Provider: Calvin Ramírez Dx/Rx/DC Orders Clinical Impression: Shortness of breath Instructions: ED Dyspnea Prescriptions: No Action Trulicity 0.75 mg/0.5 mL pen injector 0.75 mg subcut QWEEK lamotrigine 150 mg tablet 300 mg PO DAILY 90 Days Qty: 180 3RF Patient Comments: PT TAKES AT NIGHT lurasidone 60 mg tablet 60 mg PO DAILY 90 Days Qty: 90 2RF Patient Comments: PT TAKES AT BEDTIME multivitamin 1 EACH tablet 1 ea PO DAILY atorvastatin 10 mg tablet 10 mg PO QHS ropinirole 0.25 mg tablet 0.5 mg PO QHS Rx Instructions: 1-2 tablets valacyclovir 500 mg tablet 500 mg PO DAILY pantoprazole 40 mg tablet,delayed release (DR/EC) 40 mg PO DAILY Patient Comments: PT TAKES AT BEDTIME hydroxyzine HCl 25 mg tablet 25 - 50 mg PO QHS PRN (Reason: anxiety) calcium carbonate [Calcium 600] 600 mg calcium (1,500 mg) tablet 600 mg PO DAILY levothyroxine [Synthroid] 25 mcg tablet 25 mcg PO DAILY lisinopril 20 mg tablet 20 mg PO DAILY metformin 500 mg tablet extended release 24 hr 1,000 mg PO QPM propranolol 20 mg tablet 20 mg PO BID PRN (Reason: anxiety) Qty: 60 1RF mirtazapine 45 mg tablet 45 mg PO DAILY Qty: 90 1RF Primary Care Provider: Anyi Woods NP Referrals: Anyi Woods NP, IT RISK ANALYST-C [Primary Care Provider] - 3-5 Days Activity Restrictions/Additional Instructions: Follow-up with primary care physician. Return back to the ED if symptoms change or worsen. Print Language: Sinhala Disposition Disposition: Home, Self Care
[2024-08-20] MEDS: 0.9% Normal Saline (1000mL) 1,000 ML 999 ML IV (17:06)
--- NOTE | 2024-08-20 17:10 | RAD_ITS ---
PROCEDURE: CHEST PA AND LATERAL 08/20/2024 REASON FOR EXAM: SHORTNESS OF BREATH TECHNIQUE: Frontal and lateral views of the chest. COMPARISON: None FINDINGS: Cardiomediastinal silhouette is within normal limits. Lungs are clear. No sizable pneumothorax. RAD/Chest PA and Lateral IMPRESSION: No acute airspace abnormality. Reading Location: [facility]
[2024-08-20 17:34] LABS: D-Dimer Quantitative (DVT/PE) 0.27 FEU/ug/m (0.27-0.49)
[2024-08-20 18:17] LABS: Bacteria 0 SEEN /hpf (None Seen); Mucous, Urine 0 SEEN /hpf (<or=2+); Red Blood Cells-Urine 0 SEEN /hpf (0-5)
[2024-08-20 18:22] LABS: Pro- Brain NATRIURETIC PEPTIDE < 36 pg/mL (<=900); Troponin T High Sensitivity < 6 ng/L (<=14)
[2024-08-20 18:23] LABS: Color, Urine Straw (Yellow); Glucose, Dipstick Normal (Normal); Ketone-Dipstick Negative (Negative); Leukocyte Esterase-Dipstick Negative /ul (Negative); Nitrite-Dipstick Negative (Negative); Occult Blood-Urine Negative /ul (Negative); Urine Bilirubin Dipstick Negative (Negative); Urine Clarity Clear (Clear); Urine Urobilinogen Normal (Normal)
[2024-08-20 19:24] LABS: Squamous Epithelial Cells - UA 0-5 SEEN /hpf (5-10); White Blood Cells 0-5 SEEN /hpf (0-5)
[2024-08-20 19:35] LABS: Troponin T High Sens 2 HR < 6 ng/L (<=14)
[2024-08-20 19:47] LABS: Protein, Urine (Random) < 6.0 mg/dL (0.0-12.0)
== END 2024-08-20 20:05 | disposition home or self-care (01) ==
PROVIDERS: Emergency Provider Surgery; PCP Registered Nurse; Visit Provider Surgery
DX: R06.02 Shortness of breath (principal); F31.9 Bipolar disorder, unspecified; Z87.891 Personal history of nicotine dependence; F41.9 Anxiety disorder, unspecified; M54.9 Dorsalgia, unspecified; R42 Dizziness and giddiness; I10 Essential (primary) hypertension; Z79.899 Other long term (current) drug therapy; E03.9 Hypothyroidism, unspecified; Z79.890 Hormone replacement therapy; Z79.84 Long term (current) use of oral hypoglycemic drugs
CPT/HCPCS: 71046; 80048; 81001; 83880; 84156; 84484; 85025; 85379; 93005; 94760; 99284; A4216